=== PATIENT | male | born 1955 | race Caucasian/White ===

== ENCOUNTER 2022-04-02 15:15 | Inpatient (IN) | payer OTHER ==
--- NOTE | 2022-04-02 15:59 | RAD REPORT ---
EXAM DESCRIPTION: CT - CTHCSPWOC - 04/02/2022 3:43 pm CLINICAL HISTORY: syncope COMPARISON: No comparisonsNo comparisons TECHNIQUE: Axial 5 mm thick images of the head were obtained. Axial 2 mm thick images of the cervical spine were obtained with sagittal and coronal reconstruction images generated and reviewed. All CT scans are performed using dose optimization technique as appropriate and may include automated exposure control or mA/KV adjustment according to patient size. FINDINGS: CT HEAD WITHOUT CONTRAST: No acute hemorrhage, hydrocephalus or extra-axial collection is identified.No areas of brain edema or midline shift. The paranasal sinuses and mastoids are clear.The calvarium is intact. CT CERVICAL SPINE WITHOUT CONTRAST: No fracture or subluxation.No prevertebral soft tissues swelling is identified. Multiple indeterminat e pulmonary nodules in lung apices with suspicious morphology. The largest in the right upper lobe me asures 10 millimeters. IMPRESSION: No acute intracranial or cervical spine findings. Pulmonary nodules with suspicious morphologies. Metastastic disease is within the differential. Recom mend dedicated imaging of the chest if this is an unexpected finding. No prior imaging available or r elated history provided.
[2022-04-02 16:12] LABS: Protime INR 1.47
[2022-04-02 16:18] LABS: Absolute Lymphocytes (CBC) 0.5 K/uL (0.7-4.9); Lymphocytes % 5.7 % (15.3-44.8)
[2022-04-02 16:20] LABS: Albumin 2.4 g/dL (3.4-5.0); Magnesium 2.2 mg/dL (1.8-2.4); Potassium 3.8 mmol/L (3.5-5.1)
[2022-04-02 16:24] LABS: MCV 74.7 fL (80-100); MPV 6.5 fL (7.6-11.3); RBC Red Blood Cell Count 2.56 M/uL (4.33-5.43)
[2022-04-02 16:26] LABS: Hematocrit 19.1 % (39.6-49.0)
--- NOTE | 2022-04-02 16:26 | RAD REPORT ---
EXAM DESCRIPTION: RAD - Chest Single View - 04/02/2022 4:21 pm CLINICAL HISTORY: syncope COMPARISON: Head C Spine Mpr Wo Con dated 04/02/2022 FINDINGS: Lines: None. Lungs: No acute process in the lungs. Pulmonary nodules are better demonstrated on CT. Pleural: No significant pleural effusions or pneumothorax. Cardiac: The heart size is within normal limits. Bones: No acute fractures. Other: IMPRESSION: No acute cardiopulmonary disease. Pulmonary nodules better demonstrated on CT.
[2022-04-02 16:40] LABS: Bilirubin Direct 0.2 mg/dL (0-0.2); Bilirubin Total 0.3 mg/dL (0.2-1.0); Protein, Total 7.2 g/dL (6.4-8.2); Troponin High Sensitivity 7.2 pg/mL (<58.9)
[2022-04-02 17:11] LABS: SARS-CoV-2 Antigen Rapid Res Negative (Negative)
--- NOTE | 2022-04-02 17:47 | RAD REPORT ---
EXAM DESCRIPTION: CTChest Abd Pelvis Wo Con - 04/02/2022 5:33 pm CLINICAL HISTORY: Back trauma COMPARISON: No comparisons TECHNIQUE: CT of the chest, abdomen, and pelvis was performed. All CT scans are performed using dose optimization technique as appropriate and may include automated exposure control or mA/KV adjustment according to patient size. FINDINGS: Thorax: Chest Wall: No abnormal mass Lungs: Multiple pulmonary nodules. The largest measures 9 millimeters in the upper lobe on the right side. Pleura: No effusions or pneumothorax. Zaira/Mediastinum: The. For example, there is a paratracheal lymph node measuring 12 millimeters. Aorta/Pulmonary Arteries: Unremarkable Heart: Normal size. Abdomen/Pelvis: Liver: Large complex mass centered in the right hepatic lobe with cystic and solid portions. The lesi on measures at least 19.2 x 17.9 cm. Is incompletely evaluated without contrast. Biliary: No biliary ductal dilatation. Stomach: No significant focal abnormality. Duodenum: No significant focal abnormality. Pancreas: No significant abnormality. Spleen: No significant abnormality. Adrenal: No suspicious lesions. Kidney/ureter: Bilateral hydroureteronephrosis. Left renal calculi noted. Renal cortical thinning is present. Retroperitoneum: No retroperitoneal adenopathy. Vascular: No aneurysm. Bowel: No significant focal abnormality. Peritoneum: No ascites or free air. Bladder: Grossly unremarkable. Reproductive: No adnexal masses. Bones: No acute fracture. Other: n/a IMPRESSION: 1. Severe bilateral hydroureteronephrosis which is likely chronic as there is evidence o f renal cortical thinning. The bladder is also distended. This is likely related to bladder outlet ob struction. Recommend urologic consultation. 2. Large complex cystic and possibly solid mass in the right hepatic lobe which is incompletely macey cterize without contrast. A neoplasm is not excluded. Contrast CT or MRI would be helpful further ass essment. 3. Pulmonary nodules, mediastinal adenopathy, and retroperitoneal lymphadenopathy that is suspicious for metastatic disease, possibly related to the liver mass.
[2022-04-02 18:13] LABS: Urine Blood 1+ (Negative); Urine Glucose Trace (Negative); Urine Protein 1+ (Negative); Urine Specific Gravity <=1.005 (1.005-1.030)
[2022-04-02 18:43] LABS: Urine Bacteria <20 /HPF (<20); Urine RBC <5 /HPF (None Seen)
--- NOTE | 2022-04-02 18:51 | ER ---
Nurse's Notes [facility] Name: Max Sandoval Age: 67 yrs Sex: Male : 1955 Arrival Date: 04/02/2022 Time: 15:22 Bed 23 Private MD: Diagnosis: Unspecified kidney failure;Anemia, unspecified Presentation: 04/02 15:13 Initial Sepsis Screen: Does the patient meet any 2 criteria? HR > 90 bpm. No. Patient's em6 initial sepsis screen is negative. Does the patient have a suspected source of infection? No. Patient's initial sepsis screen is negative. Risk Assessment: Do you want to hurt yourself or someone else? Patient reports no desire to harm self or others. Onset of symptoms was April 02, 2022. 15:13 Acuity: CECILIA 2 em6 15:28 Chief complaint: EMS states: "patient was found in the parking lot of [facility]. em6 bystanders saw him on the floor and called us, but did not see the fall. patient states feeling lightheaded, weak and dizziness when he fell. patient states not losing LOC. patient denies chest pain, headache, SOB, no N/V. patient states right lower abdomen pain. lacerating noted in the back of the head. light bleeding. sinus tachycardia and blood pressure 148/90. inserted 20g on the left AC.". Coronavirus screen: Vaccine status: Patient reports being unvaccinated. Client denies travel out of the [place] in the last 14 days. At this time, the client does not indicate any symptoms associated with coronavirus-19. Ebola Screen: Patient negative for fever greater than or equal to 101.5 degrees Fahrenheit, and additional compatible Ebola Virus Disease symptoms Patient denies exposure to infectious person. No symptoms or risks identified at this time. 15:28 Method Of Arrival: EMS: [facility] em6 Triage Assessment: 15:41 General: Appears in no apparent distress. comfortable, Behavior is calm, cooperative. em6 Pain: Complains of pain in right lower quadrant Pain does not radiate. Pain currently is 3 out of 10 on a pain scale. Quality of pain is described as pressure, Pain began 1 hour ago. Historical: - Allergies: 15:43 No Known Allergies; em6 - Home Meds: 16:23 None [Active]; jd3 - PMHx: 16:23 None; jd3 - PSHx: 16:23 None; jd3 - Immunization history:: Adult Immunizations not immunized, Client reports having NOT received the Covid vaccine. - Social history:: Smoking status: Patient denies any tobacco usage or history of. Screenin:18 Abuse screen: Denies threats or abuse. Nutritional screening: No deficits noted. em6 Tuberculosis screening: No symptoms or risk factors identified. Fall Risk Fall in past 12 months (25 points). No secondary diagnosis (0 pts). IV access (20 points). Ambulatory Aid- None/Bed Rest/Nurse Assist (0 pts). Gait- Normal/Bed Rest/Wheelchair (0 pts) Mental Status- Oriented to own ability (0 pts). Total Dawkins Fall Scale indicates High Risk Score (45 or more points). Fall prevention measures have been instituted. Side Rails Up X 2 Placed Close to Nursing Station Frequent Obs/Assessments Occuring. Assessment: 15:18 General: Appears in no apparent distress. comfortable, Behavior is calm, cooperative. em6 Pain: Complains of pain in right lower quadrant Pain does not radiate. Pain currently is 3 out of 10 on a pain scale. Quality of pain is described as pressure, Pain began 1 hour ago. Neuro: [place]don Agitation-Sedation Scale (RASS): 0 - Alert and Calm Level of Consciousness is awake, alert, obeys commands, Oriented to person, place, time, situation, Assistant Professor Of Biology are equal bilaterally Moves all extremities. Pupils are PERRLA, Reports blurred vision since 04/02/2022 \\T\\ [id number]. 15:18 Cardiovascular: Reports lightheadedness, Heart tones present Capillary refill < 3 em6 seconds Patient's skin is warm and dry. Pulses are all present. Rhythm is sinus rhythm Chest pain is denied. Respiratory: Airway is patent Respiratory effort is even, unlabored, Respiratory pattern is regular, symmetrical, Breath sounds are clear. GI: Abdomen is non-distended, Bowel sounds present X 4 quads. Abd is soft and non tender X 4 quads. : No signs and/or symptoms were reported regarding the genitourinary system. EENT: No signs and/or symptoms were reported regarding the EENT system. Derm: laceration reported to the back of head. bandage in place at this time. Musculoskeletal: No signs and/or symptoms reported regarding the musculoskeletal system. Circulation, motion, and sensation intact. Range of motion: intact in all extremities. 15:18 Injury Description: Laceration sustained to scalp is bandage in place around head. em6 small amount of blood noted on the bandage. 16:41 Reassessment: Patient appears in no apparent distress at this time. Patient and/or em6 family updated on plan of care and expected duration. Pain level reassessed. Patient denies pain at this time. Patient states feeling better. 17:46 Reassessment: Patient appears in no apparent distress at this time. No changes from em6 previously documented assessment. Patient and/or family updated on plan of care and expected duration. Pain level reassessed. 18:46 Reassessment: Patient appears in no apparent distress at this time. No changes from em6 previously documented assessment. Patient and/or family updated on plan of care and expected duration. Pain level reassessed. 19:39 Reassessment: Patient appears in no apparent distress at this time. Patient is alert, as6 oriented x 3, equal unlabored respirations, skin warm/dry/pink. Vital Signs: 15:13 BP 149 / 99; Pulse 107; Resp 18; Temp 97.6; Pulse Ox 97% on R/A; Pain 3/10; em6 15:44 BP 149 / 99; Pulse 107; Resp 18; Temp 97.6; Pulse Ox 97% on R/A; Height 5 ft. 10 in. em6 (177.80 cm); Pain 3/10; 16:30 BP 175 / 104; Pulse 91; Resp 18; Pulse Ox 100% on R/A; Pain 0/10; em6 17:30 BP 184 / 102; Pulse 89; Resp 18; Temp 97.5(TE); Pulse Ox 100% on R/A; Pain 0/10; em6 18:30 BP 181 / 107; Pulse 94; Resp 19; Pulse Ox 100% on R/A; em6 19:39 BP 176 / 103; Pulse 97; Resp 24 S; Pulse Ox 100% on R/A; as6 ED Course: 15:18 Arm band placed on left wrist. Patient placed on marble polisher hand, on pulse oximetry. em6 15:18 Patient has correct armband on for positive identification. Bed in low position. Call em6 light in reach. Side rails up X2. Warm blanket given. 15:18 Client placed on continuous cardiac and pulse oximetry monitoring. NIBP monitoring em6 applied. ancillary services manager on. Pulse ox on. NIBP on. 15:18 Maintain EMS IV. IV is patent, is intact, with fluids infusing freely, with good blood em6 return, Flushed left antecubital. 15:22 Patient arrived in ED. jd3 15:22 Elie Longo PA is PHCP. cp 15:22 Yamile Main is Attending Physician. cp 15:24 Judah Owen, RN is Primary Nurse. jd3 15:41 Triage completed. em6 15:45 CT Head C Spine In Process Unspecified. EDMS 16:23 XRAY Chest (1 view) In Process Unspecified. EDMS 17:05 SARS RAPID Sent. em6 17:35 Chest Abd Pelvis Wo Con In Process Unspecified. EDMS 18:25 Bladder scan completed. 831 ml noted post void. provider notified. jd3 18:50 Jose Antonio Zheng MD is Hospitalizing Provider. cp 18:53 Ordaz cath inserted, using sterile technique, 18 Fr., by va, balloon inflated, to jd3 gravity drainage. 19:40 Inserted saline lock: 20 gauge in right antecubital area, using aseptic technique. as6 Blood collected. Administered Medications: 18:51 CANCELLED (Physician Discretion): NS 0.9% 500 ml IV at bolus once cp 18:51 CANCELLED (Physician Discretion): NS 0.9% 500 ml IV at 125 ml/hr continuous cp 19:39 Drug: NS 0.9% 1000 ml Route: IV; Rate: 1000 ml/hr; Site: left antecubital; as6 19:39 Drug: NS 0.9% 1000 ml Route: IV; Rate: 75 ml/hr; Site: left antecubital; as6 Medication: 16:38 VIS not applicable for this client. em6 Outcome: 18:50 Decision to Hospitalize by Provider. cp 04/03 10:08 Patient left the ED. em1 Signatures: Dispatcher [employer] EDMS Alejandro Garcia em1 Elie Longo PA PA cp Davies, Jonathon, RN RN jd3 Slawson, Ashby, RN RN as6 Jose, Lisa, RN RN em6 Corrections: (The following items were deleted from the chart) 04/02 16:22 15:18 Derm: No signs and/or symptoms reported regarding the dermatologic system. em6 em6 16:22 15:18 Injury Description: Head injury patient states not losing conscious. em6 em6 16:33 15:18 Arm band placed on em6 em6 16:36 16:34 Abuse screen: Denies threats or abuse. em6 em6 16:36 16:34 Nutritional screening: No deficits noted. em6 em6 16:36 16:34 Tuberculosis screening: No symptoms or risk factors identified. em6 em6 16:36 16:34 Fall Risk Fall in past 12 months (25 points). No secondary diagnosis (0 pts). IV em6 access (20 points). Ambulatory Aid- None/Bed Rest/Nurse Assist (0 pts). Gait- Normal/Bed Rest/Wheelchair (0 pts) Mental Status- Oriented to own ability (0 pts). Total Dawkins Fall Scale indicates High Risk Score (45 or more points). Fall prevention measures have been instituted. Side Rails Up X 2 Placed Close to Nursing Station Frequent Obs/Assessments Occuring em6
--- NOTE | 2022-04-02 18:51 | EDPHYS ---
Physician Documentation [facility] Name: Max Sandoval Age: 67 yrs Sex: Male : 1955 Arrival Date: 04/02/2022 Time: 15:22 Bed 23 Private MD: ED Physician Yamile Main HPI: 04/02 15:30 This 67 yrs old Male presents to ER via EMS with complaints of Fall Injury. cp 15:30 The patient has experienced syncope, lost consciousness. cp 15:30 Onset: The symptoms/episode began/occurred just prior to arrival. Duration: This was a cp single episode, that lasted an unknown period of time. Context: occurred outdoors, while getting into car. Associated injury: Head/face: scalp, laceration. Associated signs and symptoms: Pertinent positives: weakness, Pertinent negatives: abdominal pain, chest pain, seizure, vomiting. Current symptoms: general weakness. Historical: - Allergies: 15:43 No Known Allergies; em6 - Home Meds: 16:23 None [Active]; jd3 - PMHx: 16:23 None; jd3 - PSHx: 16:23 None; jd3 - Immunization history:: Adult Immunizations not immunized, Client reports having NOT received the Covid vaccine. - Social history:: Smoking status: Patient denies any tobacco usage or history of. ROS: 15:35 Constitutional: Negative for body aches, chills, fever, poor PO intake. cp 15:35 Eyes: Negative for injury, pain, redness, and discharge. cp 15:35 ENT: Negative for drainage from ear(s), ear pain, sore throat, difficulty swallowing, difficulty handling secretions. 15:35 Cardiovascular: Negative for chest pain, edema, palpitations. 15:35 Respiratory: Negative for cough, shortness of breath, wheezing. 15:35 Abdomen/GI: Positive for abdominal pain, Negative for vomiting, diarrhea, constipation, black/tarry stool, rectal bleeding. 15:35 Back: Negative for pain at rest, pain with movement. 15:35 : Negative for urinary symptoms. 15:35 Neuro: Positive for syncope, weakness, Negative for altered mental status, headache. 15:35 All other systems are negative. Exam: 15:45 Constitutional: The patient appears in no acute distress, alert, awake, cp non-diaphoretic, non-toxic, well developed, well nourished. 15:45 Head/face: Noted is a laceration(s), that is linear, of the scalp. cp 15:45 Eyes: Periorbital structures: appear normal, Pupils: equal, round, and reactive to light and accomodation, Extraocular movements: intact throughout, Conjunctiva: normal, no exudate, no injection, Sclera: no appreciated abnormality, Lids and lashes: appear normal, bilaterally. 15:45 ENT: External ear(s): are unremarkable, Ear canal(s): are normal, clear, TM's: dullness, bilaterally, Nose: is normal, Mouth: Lips: moist, Oral mucosa: pink and intact, moist, Posterior pharynx: Airway: no evidence of obstruction, patent. 15:45 Neck: C-spine: vertebral tenderness, is not appreciated, crepitus, is not appreciated, ROM/movement: is normal, is supple, without pain, no range of motions limitations. 15:45 Chest/axilla: Inspection: normal, Palpation: is normal, no crepitus, no tenderness. 15:45 Cardiovascular: Rate: tachycardic, Rhythm: regular, Edema: is not appreciated, JVD: is not appreciated. 15:45 Respiratory: the patient does not display signs of respiratory distress, Respirations: normal, no use of accessory muscles, no retractions, labored breathing, is not present, Breath sounds: are clear throughout, no decreased breath sounds, no stridor, no wheezing. 15:45 Abdomen/GI: Inspection: distension, that is mild, in the right upper quadrant, Bowel sounds: active, all quadrants, Palpation: soft, in all quadrants, mild abdominal tenderness, in the abdomen diffusely, rebound tenderness, is not appreciated, involuntary guarding, is not appreciated, Rectal exam: Stool: brown, guaiac negative. 15:45 Back: vertebral tenderness, is not appreciated. 15:45 Neuro: Orientation: to person, place \T\ time. Mentation: able to follow commands, slow cp to respond, Cerebellar function: is grossly normal, Motor: moves all fours, strength is normal, Sensation: is normal. 16:00 ECG was reviewed by the Attending Physician. cp 18:15 : Rectal exam: Stool: brown, Guaiac testing: results were negative for occult blood. cp Vital Signs: 15:13 BP 149 / 99; Pulse 107; Resp 18; Temp 97.6; Pulse Ox 97% on R/A; Pain 3/10; em6 15:44 BP 149 / 99; Pulse 107; Resp 18; Temp 97.6; Pulse Ox 97% on R/A; Height 5 ft. 10 in. em6 (177.80 cm); Pain 3/10; 16:30 BP 175 / 104; Pulse 91; Resp 18; Pulse Ox 100% on R/A; Pain 0/10; em6 17:30 BP 184 / 102; Pulse 89; Resp 18; Temp 97.5(TE); Pulse Ox 100% on R/A; Pain 0/10; em6 18:30 BP 181 / 107; Pulse 94; Resp 19; Pulse Ox 100% on R/A; em6 19:39 BP 176 / 103; Pulse 97; Resp 24 S; Pulse Ox 100% on R/A; as6 Laceration: 20:00 Wound Repair of 2.5cm ( 1.0in ) subcutaneous laceration to scalp. Linear shaped.. cp Distal neuro/vascular/tendon intact. Wound prep: Simple cleansing by me. Skin closed with 3 1-0 Mahesh using staple gun. Dressed with 4x4's, Kerlix. Patient tolerated well. MDM: 15:24 Patient medically screened. cp 18:15 Data reviewed: vital signs, nurses notes, lab test result(s), EKG, radiologic studies, cp CT scan, plain films. 18:15 Test interpretation: by ED physician or midlevel provider: ECG, plain radiologic cp studies. Counseling: I had a detailed discussion with the patient and/or guardian regarding: the historical points, exam findings, and any diagnostic results supporting the discharge/admit diagnosis, lab results, radiology results, the need for further work-up and treatment in the hospital. 18:45 Physician consultation: Jose Antonio Zheng MD was contacted at 18:45, regarding admission, cp to the telemetry unit. patient's condition. 04/02 15:23 Order name: Basic Metabolic Panel; Complete Time: 16:55 cp 04/02 16:55 Interpretation: Normal except: NA 127; CL 97; CO2 16; ANION GAP 17.8; GLUC 120; BUN 61; cp CRE 5.30; GFR 11. 04/02 15:23 Order name: CBC with Diff; Complete Time: 16:29 04/02 16:30 Interpretation: Normal except: RBC 2.56; HGB 6.4; HCT 19.1; MCV 74.7; MCH 25.0; PLT cp 556; MPV 6.5; DAVID% 83.7; LYM% 5.7; LYMA 0.5. 04/02 15:23 Order name: LFT's; Complete Time: 16:55 04/02 15:23 Order name: Magnesium; Complete Time: 16:55 04/02 15:23 Order name: NT PRO-BNP; Complete Time: 16:55 04/02 17:57 Interpretation: Abnormal: NT PRO-BNP 1639. 04/02 15:23 Order name: PT-INR; Complete Time: 16:29 04/02 15:23 Order name: Troponin HS; Complete Time: 16:55 04/02 16:45 Order name: SARS RAPID; Complete Time: 17:50 04/02 17:52 Order name: Lactate; Complete Time: 00:08 04/02 17:52 Order name: Procalcitonin; Complete Time: 00:08 04/02 17:52 Order name: Blood Culture Adult (2) 04/02 17:52 Order name: Urine Microscopic Only; Complete Time: 18:45 04/02 18:02 Order name: T\T\S 04/02 18:02 Order name: Bb Add On 04/02 15:23 Order name: XRAY Chest (1 view); Complete Time: 16:29 04/02 15:23 Order name: CT Head C Spine; Complete Time: 16:29 04/02 17:08 Order name: Chest Abd Pelvis Wo Con; Complete Time: 17:50 [facility] 04/02 18:13 Order name: Urine Dipstick-Ancillary; Complete Time: 18:18 [facility] 04/02 20:27 Order name: ABO/RH no charge; Complete Time: 00:08 EDNE 04/03 03:18 Order name: CBC with Automated Diff; Complete Time: 07:10 EDNE 04/03 03:47 Order name: Comprehensive Metabolic Panel; Complete Time: 07:10 EDNE 04/03 03:47 Order name: T4 Free; Complete Time: 07:10 EDMS 04/03 03:47 Order name: Carcinoembryonic Antigen; Complete Time: 07:10 EDMS 04/03 03:47 Order name: Thyroid Stimulating Hormone; Complete Time: 07:10 EDMS 04/03 03:47 Order name: Transferrin Sat/Iron Binding; Complete Time: 07:10 EDMS 04/03 03:47 Order name: Ferritin; Complete Time: 07:10 EDMS 04/03 06:59 Order name: Hematocrit; Complete Time: 07:10 EDMS 04/02 15:23 Order name: EKG; Complete Time: 15:24 cp 04/02 15:23 Order name: Cardiac monitoring; Complete Time: 15:24 cp 04/02 15:23 Order name: EKG - Nurse/Tech; Complete Time: 15:56 cp 04/02 15:23 Order name: IV Saline Lock; Complete Time: 15:28 cp 04/02 15:23 Order name: Labs collected and sent; Complete Time: 15:56 cp 04/02 15:23 Order name: O2 Per Protocol; Complete Time: 15:24 cp 04/02 15:23 Order name: O2 Sat Monitoring; Complete Time: 15:24 cp 04/02 17:52 Order name: Bladder Scanner; Complete Time: 18:25 cp 04/02 17:52 Order name: Urine Dipstick-Ancillary (obtain specimen); Complete Time: 18:12 cp 04/02 18:03 Order name: Ordaz; Complete Time: 19:09 cp EC:00 Rate is 96 beats/min. Rhythm is regular. VA interval is normal. QRS interval is normal. cp QT interval is normal. T waves are Inverted in leads I, aVL. Interpreted by me. Reviewed by me. Administered Medications: 18:51 CANCELLED (Physician Discretion): NS 0.9% 500 ml IV at bolus once cp 18:51 CANCELLED (Physician Discretion): NS 0.9% 500 ml IV at 125 ml/hr continuous cp 19:39 Drug: NS 0.9% 1000 ml Route: IV; Rate: 1000 ml/hr; Site: left antecubital; as6 19:39 Drug: NS 0.9% 1000 ml Route: IV; Rate: 75 ml/hr; Site: left antecubital; as6 Disposition: 04/03 07:38 STAFF ATTESTATION The patient's history, exam findings, diagnostics, and a summary of sd2 any interventions or procedures was reviewed in detail with the ED midlevel provider. I confirm the diagnosis as documented by the midlevel provider and I agree with the care plan articulated in the disposition section with regards to our discussion of the patient's case. Yamile Main MD. Disposition Summary: 04/02/22 18:50 Hospitalization Ordered Hospitalization Status: Inpatient Admission cp Provider: Jose Antonio Zheng cp Condition: Stable cp Problem: new cp Symptoms: have improved cp Bed/Room Type: Standard cp Location: Telemetry/MedSurg (Inpatient)(04/03/22 09:15) dw Room Assignment: 228(04/03/22 09:15) dw Diagnosis - Unspecified kidney failure cp - Anemia, unspecified cp Forms: - Medication Reconciliation Form cp - SBAR form cp Signatures: Dispatcher [employer] EDMS Maria Luz Potter RN RN dw Attema, Lee, ELECTRONIC MASKING SYSTEM OPERATOR-C ELECTRONIC MASKING SYSTEM OPERATOR-Cla1 Elie Longo PA PA cp Cheryl Juarez, RN Judah Romero RN RN jd3 Fish Fierro DO DO ms3 Eugene Lr RN RN as6 Yamile Main MD MD sd2 Lisa Garcia RN RN em6 Corrections: (The following items were deleted from the chart) 04/02 16:55 16:30 Normal except: NA 127; CL 97; CO2 16; ANION GAP 17.8; GLUC 120; BUN 61. cp cp 16:55 16:55 Normal except: NA 127; CL 97; CO2 16; ANION GAP 17.8; GLUC 120; BUN 61; CRE 5.30. cp cp 17:07 16:55 Abdomen Pelvis Wo Con+CT.RAD.BRZ ordered. EDMS EDMS 17:08 16:55 Thorax Wo Con+CT.RAD.BRZ ordered. EDMS EDMS 18:51 18:27 NS 0.9% 500 ml IV at bolus once ordered. cp cp 18:51 18:27 NS 0.9% 500 ml IV at 125 ml/hr continuous ordered. cp cp 19:35 18:50 Telemetry/MedSurg (Inpatient) cp cg 19:35 18:50 cp cg 04/03 09:15 04/02 19:35 BR ER HOLD cg 04/03 09:15 04/02 19:35 ERHOLD- cg 04/04 09:16 04/02 21:00 Wound Repair of 2.5cm ( 1.0in ) subcutaneous laceration to scalp. Linear cp shaped.. Distal neuro/vascular/tendon intact. Wound prep: Simple cleansing by me. Skin closed with 3 1-0 Mahesh using staple gun. Dressed with 4x4's, Kerlix. Patient tolerated well. cp
[2022-04-02] MEDS ORDERED: NA CHLORIDE 0.9% 2,000 ML ONE (19:27)
--- NOTE | 2022-04-02 19:52 | P.HP ---
Certification for Inpatient Patient admitted to: Inpatient With expected LOS: >2 Midnights Patient will require the following post-hospital care: None Practitioner: I am a practitioner with admitting privileges, knowledge of patient current condition, hospital course, and medical plan of care. Services: Services provided to patient in accordance with Admission requirements found in Title 42 Section 412.3 of the Code of Federal Regulations Patient History Date of Service: 04/02/22 Reason for admission: Acute renal failure, anemia History of Present Illness: 67-year-old male with no known past medical history presented to the emergency department with fall/near syncope. He reports he was at [employer] getting some food when he got out of his car and put the food away he began to feel very lightheaded and fell hitting the back of his head on the ground, he denies loss of consciousness but reports feeling very weak and lightheaded. He reports he has been feeling weak, short of breath on exertion worsening since July, also reports he has been losing weight since July. He was evaluated in the emergency department his labs were significant for microcytic anemia, elevated platelets, mild hyponatremia, acute renal failure. He had a CT scan of his head neck which was negative for acute injuries chest x-ray was unremarkable CT chest abdomen pelvis without contrast was significant for severe bilateral hydroureteronephrosis which is likely chronic and there is evidence of renal cortical thinning, bladder distention likely related to bladder outlet obstruction. Large complex cystic and possibly solid mass in the right hepatic lobe which is incompletely characterized without contrast neoplasm not excluded contrast CT or MRI would be more helpful, pulmonary nodules mediastinal adenopathy and retrofitted peritoneal lymphadenopathy there is suspicious for metastatic disease part related to the liver mass. A Ordaz catheter was inserted in the emergency department which returned approximately 1300 cc of yellow urine without gross hematuria. Patient denies any melena, hematochezia or hematemesis FOBT negative in the emergency department. ED prior wishes to admit for further evaluation and management of acute renal failure, obstructive uropathy, anemia. - Past Medical/Surgical History -: None -: None Psychosocial/ Personal History: Patient is retired, lives at home alone. - Family History Family History: Reviewed- Non-Contributory - Social History Smoking Status: Never smoker Alcohol use: No CD- Drugs: No Caffeine use: Yes Place of Residence: Home Review of Systems 10-point ROS is otherwise unremarkable General: Other (weight loss) Respiratory: SOB with Excertion Cardiovascular: Light Headedness Genitourinary: Frequency, Other (small amounts) Physical Examination - Physical Exam General: Alert, In no apparent distress, Oriented x3 HEENT: Atraumatic, PERRLA, Other (MM pale, dry), EOMI, Sclerae nonicteric Neck: Supple, 2+ carotid pulse no bruit, No LAD, Without JVD or thyroid abnormality Respiratory: Clear to auscultation bilaterally, Normal air movement Cardiovascular: Regular rate/rhythm, Normal S1 S2 Capillary refill: <2 Seconds Gastrointestinal: Normal bowel sounds, No tenderness Musculoskeletal: No tenderness Integumentary: No rashes Neurological: Normal speech, Normal strength at 5/5 x4 extr, Normal tone, Normal affect - Studies Laboratory Data (last 24 hrs) 04/02/22 15:55: PT 16.3 H, INR 1.47 04/02/22 15:55: WBC 8.2, Hgb 6.4 L*, Hct 19.1 L*, Plt Count 556 H 04/02/22 15:55: Sodium 127 L, Potassium 3.8, BUN 61 H, Creatinine 5.30 H*, Glucose 120 H, Magnesium 2.2, Total Bilirubin 0.3, AST 26, ALT 20, Alkaline Phosphatase 206 H Assessment and Plan - Plan Assessment: Acute renal failure Bladder outlet obstruction Microcytic anemia Hypertension Liver mass/pulmonary nodules/weight loss/lymphadenopathy suspected metastatic cancer Plan: Acute renal failure: Likely related to chronic bladder outlet obstruction, PVR 800 per bladder scan Ordaz catheter was inserted which returned 1300 cc of yellow/clear urine without gross hematuria. Anticipate improvement in renal function, will provide with gentle hydration overnight as well. Nephrology consult in place. Bladder outlet obstruction: Ordaz catheter inserted and now draining clear yellow urine Microcytic anemia: Likely related to metastatic cancer, FOBT negative, denies any melena, hematochezia, hematemesis. Being transfused 2 units. See now will obtain 2-hour posttransfusion H&H. Hypertension: Not on any medications at home blood pressure elevated in the emergency department, will continue to monitor closely will likely require initiation of antihypertensive agents. Will avoid RENÉE/ARB in the setting of acute renal failure. Liver mass/pulmonary nodules/weight loss/lymphadenopathy suspected metastatic cancer: Discussed with patient at length regarding suspected metastatic cancer, he does wish to pursue treatment options. Additional labs ordered to further assess at discharge patient will need close follow-up with oncology. Unclear primary cancer, possibly colon. He has never had a colonoscopy. DVT PPX: SCD for now, likely heparin if anemia responds to tranfusion and no bleeding. Code status:Full code Discharge Plan: Home Plan to discharge in: Greater than 2 days - Advance Directives Does patient have a Living Will: No Does patient have a Durable POA for Healthcare: No - Code Status/Comfort Care Code Status Assessed: Yes (Full code) Critical Care: No Time Spent Managing Pts Care (In Minutes): 70
[2022-04-02 20:58] VITALS: BMI 19.2
[2022-04-02] MEDS ORDERED: ONDANSETRON 4 MG/2 ML VIAL IV PRN (21:00)
[2022-04-02] MEDS ORDERED: HYDRALAZINE HCL 20 MG/ML VIAL IV PRN (21:08)
[2022-04-02] MEDS: NA CHLORIDE 0.9% 1,000 ML IV SCH (21:40)
[2022-04-02] MEDS ORDERED: NA CHLORIDE 0.9% 250 ML ONE ×2 (21:59→23:46)
[2022-04-02] MEDS ORDERED: HYDRALAZINE HCL 25 MG TABLET PO SCH (22:00)
[2022-04-02] MEDS ORDERED: HYDRALAZINE HCL 20 MG/ML VIAL ONE (22:38)
[2022-04-02] MEDS ORDERED: LABETALOL 20 MG/4ML SYRINGE IV PRN (23:38)
[2022-04-03] MEDS ORDERED: LIDOCAINE JELLY 2%- 5 ML TUBE TOP ONE (00:10)
[2022-04-03] MEDS: HYDROCODONE/APAP 7.5/325 MG TAB PO PRN ×2 (00:12→08:18)
[2022-04-03] MEDS: HYDRALAZINE HCL 25 MG TABLET PO SCH ×3 (00:15→21:04)
[2022-04-03] MEDS ORDERED: HYDRALAZINE HCL 25 MG TABLET ONE ×2 (00:19→09:04)
[2022-04-03] MEDS ORDERED: HYDROCODONE/APAP 7.5/325 MG TAB ONE ×2 (00:19→08:09)
[2022-04-03] MEDS ORDERED: LIDOCAINE JELLY 2%- 5 ML TUBE ONE (00:31)
[2022-04-03 03:09] LABS: Absolute Lymphocytes (CBC) 0.4 K/uL (0.7-4.9); Lymphocytes % 4.8 % (15.3-44.8); MCV 79.2 fL (80-100); MPV 6.4 fL (7.6-11.3); RBC Red Blood Cell Count 3.29 M/uL (4.33-5.43)
[2022-04-03 03:46] LABS: Albumin 2.3 g/dL (3.4-5.0); Bilirubin Total 0.9 mg/dL (0.2-1.0); Carcinoembryonic Antigen 1.4 ng/mL (0-5.0); Ferritin 925.2 ng/mL (26-388); Protein, Total 6.9 g/dL (6.4-8.2); Thyroid Stimulating Hormone 2.36 uIU/mL (0.360-3.740)
[2022-04-03] MEDS ORDERED: ONDANSETRON 4 MG/2 ML VIAL ONE (08:09)
[2022-04-03] MEDS ORDERED: PNEUMOCOCCAL VACCINE 0.5 ML IMVAC ONE (09:00)
[2022-04-03] MEDS ORDERED: LABETALOL 20 MG/4ML SYRINGE IV ONE (09:04)
[2022-04-03] MEDS: NA CHLORIDE 0.9% 1,000 ML IV SCH ×2 (18:40→23:40)
[2022-04-03 19:02] LABS: Hematocrit 33.4 % (39.6-49.0); MCV 79.5 fL (80-100); MPV 6.6 fL (7.6-11.3)
[2022-04-03 19:17] LABS: Albumin 2.6 g/dL (3.4-5.0); Bilirubin Total 0.8 mg/dL (0.2-1.0); Potassium 4.2 mmol/L (3.5-5.1)
--- NOTE | 2022-04-03 22:27 | P.PN ---
Date of Service: 04/03/22 Subjective: feels about the same no acute events overnight ROS: 10 point ROS as noted above, otherwise negative Physical Exam: Gen: fatigued appearing, NAD HEENT: normal conjunctiva, sclera anicteric CV: regular rate/rhythm, no edema Pulm: nonlabored on room air Abd: soft, NTND, hepatomegaly with tenderness Integumentary: no rash Neuro: normal speech, moves all extremities 5/5 str Problem List: Acute renal failure Bladder outlet obstruction, bilateral hydronephrosis Microcytic anemia Hypertension Liver mass/pulmonary nodules/weight loss/lymphadenopathy suspected metastatic cancer Acute vs chronic renal failure, unsure of how long this has been ongoing patient reports constipation since last fall, has been taking a medication that works as a laxative within the same timeline as constipation - began to have more nocturia - now ~3 times a night Ordaz placed and 1300cc yellow/clear urine was obtained in ED now urine is blood tinged No significant improvement but patient is making plenty of urine anemia - likely secondary to metastatic cancer; possibly bled in complex liver cyst s/p 2u PRBC with good improvement Liver mass - suspect cancer, possible cystadenocarcinoma, ?prostate cancer, ?rectal discussed with radiologist prior to admission - did not feel this cyst was full of blood possible hemorhagic hepatic cyst he has never had a colonoscopy deconditioned; difficulty walking now due to debility. PT consult DVT: SCDs for now, r/o bleed Code: full Dispo: home, ~3-4 days patient did not bring his cell phone and does not recall family members numbers states he has a sister in [place] he hasn't spoken to in ~3 months, didn't want to bother her Time Spent Managing Pts Care (In Minutes): 35
[2022-04-04 04:30] LABS: Absolute Lymphocytes (CBC) 0.4 K/uL (0.7-4.9); Lymphocytes % 4.2 % (15.3-44.8); MCV 79.8 fL (80-100); MPV 6.5 fL (7.6-11.3); RBC Red Blood Cell Count 3.89 M/uL (4.33-5.43)
[2022-04-04] MEDS: NA CHLORIDE 0.9% 1,000 ML IV SCH ×2 (05:36→13:00)
--- NOTE | 2022-04-04 06:36 | P.PN ---
Date of Service: 04/04/22 Subjective: no acute events, feels ~same low appetite, fatigued ROS: 10 point ROS as noted above, otherwise negative Physical Exam: Gen: fatigued appearing, NAD HEENT: normal conjunctiva, sclera anicteric CV: regular rate/rhythm, no edema Pulm: nonlabored on room air Abd: soft, NTND, hepatomegaly with mild tenderness/discomfort Integumentary: no rash Neuro: normal speech, moves all extremities 5/5 str Problem List: Abdominal mass / ?liver mass ; suspected metastatic cancer pulmonary nodules mediastinal lymphadenopathy Acute renal failure Bladder outlet obstruction, bilateral hydronephrosis, unknown etiology Microcytic anemia Hypertension Acute vs chronic renal failure, unsure of how long this has been ongoing patient reports constipation since last fall, has been taking a medication that works as a laxative within the same timeline as constipation - began to have more nocturia - now ~3 times a night Zapata placed and 1300cc yellow/clear urine was obtained in ED now urine is blood tinged No significant improvement but patient is making plenty of urine anemia - likely secondary to metastatic cancer; possibly bled in complex liver cyst s/p 2u PRBC with good improvement Liver mass - suspect cancer, possible cystadenocarcinoma, ?prostate cancer, ?rectal - tumor markers sent discussed with radiologist prior to admission - did not feel this cyst was full of blood possible hemorhagic hepatic cyst he has never had a colonoscopy deconditioned; difficulty walking now due to debility. PT consult Abdominal MRI ordered, unable to get without contrast due to renal failure; discussed with radiologist depending on MRI results, to discuss again with radiology and plan out biopsy will need urology eval as outpatient, continue zapata DVT: SCDs for now, r/o bleed Code: full Dispo: home, ~3-4 days patient did not bring his cell phone and does not recall family members numbers states he has a sister in [place] he hasn't spoken to in ~3 months, didn't want to bother her Time Spent Managing Pts Care (In Minutes): 35
[2022-04-04 07:37] LABS: Albumin 2.4 g/dL (3.4-5.0); Bilirubin Total 0.6 mg/dL (0.2-1.0); Potassium 4.2 mmol/L (3.5-5.1); Protein, Total 7.2 g/dL (6.4-8.2)
[2022-04-04] MEDS: HYDRALAZINE HCL 25 MG TABLET PO SCH ×2 (09:11→22:31)
--- NOTE | 2022-04-04 09:30 | EKG ---
Test Date: 2022-04-02 Test Time: 15:54:34 Coordinator [employer]: BP MEASUREMENT RESULTS: Intervals: Rate: 96 MS: 172 QRSD: 96 QT: 344 QTc: 434 Warriors Mark: P: 90 MS: 172 QRS: -63 T: 96 INTERPRETIVE STATEMENTS: Normal sinus rhythm Pulmonary disease pattern Left anterior fascicular block Septal infarct, age undetermined Abnormal ECG No previous ECG available for comparison Electronically Signed On 04-04-22 09:25:07 CDT by Luke Irving
--- NOTE | 2022-04-04 13:20 | RAD REPORT ---
EXAM DESCRIPTION: MRI - Abdomen Wo Cont - 04/04/2022 11:18 am CLINICAL HISTORY: eval liver mass, gross hematuria, bilateral hydronephrosis COMPARISON: No comparisons TECHNIQUE: Axial and coronal imaging of the abdomen performed using T1 weighted, T2 weighted, T2 has te fat sat imaging, T1 inphase/ opposed phase imaging. Contrast could not be administered due to poor renal function. FINDINGS: Filling the right abdomen is a 21 cm CC x 18 cm AP x 17 cm TR circumscribed heterogeneous signal intensity mass. On T1 weighted imaging the mass is predominantly hyperintense. There is a 15 x 9 cm area in the posteromedial aspect of the mass complex that is more hypointense. No significant c hange in signal pattern on opposed phase imaging. On T1 fat suppressed sequencing the signal pattern is not substantially different. On heavily T2 weighted sequencing multiple hyperintense probably cystic components are seen. There ar e numerous septations present. The posteromedial component is mostly hyperintense on T2 imaging. Ther e are numerous T2 hypointense strands within the medial mass complex at along the periphery of the po steromedial component. On T2 and T2 haste sequencing there are areas of layering fluid fluid componen ts. Along the medial margin of the mass there is a neck or stalk that extends inferiorly into the central abdomen. Point of origin is not clearly defined on this examination. It is probably but not definiti vely to low for biliary origin. The mass appears to displace rather than arise from the liver or righ t kidney. Pancreas is displaced to the left of midline. Separate normal sized gallbladder is seen. Le wallace within the hepatic parenchyma is not confirmed. Communication to the biliary tree is not seen. Patient does have pronounced bilateral hydronephrosis. Ureters are not fully imaged on this study. A discrete solid mass is not seen. Left-sided renal cysts are present. The mass is predominantly cystic but this is not a simple cyst fluid. High protein content or hemorrh agic material is likely present. No significant fat component is confirmed. Fibrotic septations are s een. This very large right-sided abdominal mass does not appear to be from in origin of the solid abdomina l visceral. The bilateral hydronephrosis and hematuria are likely unrelated to this process. A mucino us cystic neoplasm (MCN) would be a primary consideration. This is likely from mesenteric origin. Jaiden iary mucinous cystadenoma as a variety of MCN would be a consideration. Mesenteric teratoma would be a possibility. IMPRESSION: Large 21 centimeter mass in the abdomen is present. As detailed, this appears to displac e the liver, kidney and pancreas. Gallbladder is also displaced. Mass of the solid abdominal viscera not suspected. Mucinous cystic neoplasm possibly from mesenteric or biliary origin would be possible. Teratoma is al so a consideration. Patient has significant bilateral hydronephrosis not fully evaluated on this MRI abdomen only examina tion.
[2022-04-05] MEDS: NA CHLORIDE 0.9% 1,000 ML IV SCH ×2 (02:29→18:54)
--- NOTE | 2022-04-05 02:47 | PN ---
Date of Progress Note: 04/04/2022 Chief Complaint: Acute kidney injury, nonoliguric. Subjective: The patient presented to the hospital because of status post fall. The patient was found to have liver mass and is undergoing workup. MRI without contrast was ordered. The patient has severe hyperazotemia. Electrolytes are stabilizing. On admission, the patient was found to have hyponatremia and sodium level has improved. The patient is on normal saline for hydration. Review of Systems: Denies fever or chills. Objective: Lungs: Clear to auscultation bilateral. Heart: S1 and S2. Abdomen: Soft. Extremities: No edema. Impression And Plan: 1. Acute kidney injury on advanced chronic kidney disease. The patient had a CT scan done without contrast, which showed thinning of the cortical area in both kidneys, which corresponds with advanced chronic kidney disease secondary to obstructive uropathy with hydronephrosis present bilaterally. The patient had a Ordaz catheter placed and he remains nonoliguric. The patient needs further workup with Urology and workup for malignancy as he was found to have liver mass, which may indicate possibility of cystadenocarcinoma. The patient needs workup with Urology to rule out prostate cancer and GI to rule out colon cancer as well. 2. Hydronephrosis. Plan is to re-evaluate renal ultrasound and the patient may need a nuclear medicine scan for hydronephrosis. CAMILLE/KATI Voice ID: [id number] Report ID: [id number] MTDD
--- NOTE | 2022-04-05 03:22 | CON ---
Date of Consultation: 04/03/2022 Chief Complaint: Acute kidney injury. duplicate EB/MODL Voice ID: [id number] Report ID: [id number] MTDD
[2022-04-05 06:04] LABS: Absolute Lymphocytes (CBC) 0.6 K/uL (0.7-4.9); Hematocrit 27.6 % (39.6-49.0); Lymphocytes % 7.3 % (15.3-44.8); MCV 79.6 fL (80-100); MPV 6.4 fL (7.6-11.3); RBC Red Blood Cell Count 3.47 M/uL (4.33-5.43)
[2022-04-05 06:18] LABS: Albumin 2.1 g/dL (3.4-5.0); Bilirubin Total 0.4 mg/dL (0.2-1.0); Potassium 3.8 mmol/L (3.5-5.1); Protein, Total 6.8 g/dL (6.4-8.2)
--- NOTE | 2022-04-05 07:50 | CON ---
Date of Consultation: 04/03/2022 Chief Complaint: Acute kidney failure. History Of Present Illness: The patient is a 67-year-old man who has no previous medical history of kidney disease. He denies history of kidney disease, although he has a history of kidney stone many years ago, had 1 episode of stone. He was admitted to the hospital after he sustained fall and was admitted for syncope. He became very lightheaded and fell. He denies chest pain, seizure. He has had significant weight loss over the last 6 months. He has lost approximately 20 pounds. He states that he was on low calorie intake. Denies melena, hematemesis, abdominal pain, nausea, or vomiting. He denies any history of kidney insufficiency, although he has not had appointment with his primary physician at least few years. The patient was evaluated in the emergency department and his lab work showed significant microcytic anemia, elevated platelets, mild hyponatremia, and elevated BUN and creatinine, baseline creatinine is unknown. CT scan of the head and neck was negative for acute injury. Chest x-ray was unremarkable and CT scan of abdomen and pelvis without contrast showed severe bilateral hydroureteronephrosis, which is likely chronic with evidence of renal cortical thinning and bladder distention, likely related to bladder outlet obstruction, large complex cystic lesion, possibly mass in the right hepatic lobe which was incompletely characterized without IV contrast. The patient could not have IV contrast because of kidney failure. Pulmonary nodules, mediastinal adenopathy, retroperitoneal lymphadenopathy, some suspicion for metastatic disease related to liver mass. Ordaz catheter was inserted in the emergency room and the patient was found to have 1300 of yellow urine without gross hematuria. The patient had urinary retention, although he was not complaining of any abdominal discomfort. Past Medical History: The patient denies history of hypertension, diabetes, kidney disease, although he has a history of kidney stone in the past. Social History: Never smoked. Denies drug. Denies alcohol. Family History: No kidney disease in the family. Review of Systems: General: Denies fever or chills. Eyes: Denies any vision changes. Ears, Nose, Mouth, and Throat: Denies sore throat or earache. Respiratory: Denies PND or orthopnea. Cardiovascular: Denies chest pain or palpitation. GI: Denies nausea or vomiting. : Denies kidney colic or hematuria. All other systems reviewed and all are negative. Physical Examination: General: Not in acute distress. Eyes: Anicteric sclerae. EOMI. Ears, Nose, Mouth and Throat: Oral mucosa moist. No pallor. Neck: Supple. No bruits. Lungs: Diminished breath sounds at the bases. Heart: S1 and S2. Abdomen: Soft, benign. Extremities: No edema. Laboratory Data: Hemoglobin 6.4, WBC 8.2, platelet count is 556. Sodium 127, potassium 3.8, BUN 61, creatinine 5.3, glucose 121, magnesium 2.2. Impression And Plan: 1. Acute kidney injury, likely the patient has underlying chronic kidney disease secondary to obstructive uropathy. The patient presented with bladder outlet obstruction and he was evaluated in the emergency room after he sustained a fall prior to this admission with injury to his head. The patient was found to have hypertension, liver mass, pulmonary nodule. He has significant weight loss and lymphadenopathy, suspected metastatic cancer. The patient likely has chronic obstructive uropathy. The patient had high post void residual volume and Ordaz catheter was inserted for bladder outlet obstruction. I recommend to consult urologist. The patient needs a comprehensive workup to rule out malignancy and suspected metastatic cancer. 2. Hypertension. Continue blood pressure medication, avoid ARB and angiotensin receptor doug secondary to renal failure, monitor bp and adjust medications. 3. pulmonary nodule, workup will be conducted by primary team. 3. Acute kidney on chronic kidney disease , severe bladder outlet obstruction. The patient will need a Urology. Plan is to check proteinuria and workup for possible glomerulonephritis. CAMILLE/KATI Voice ID: [id number] Report ID: [id number] TEMITOPE
--- NOTE | 2022-04-05 08:31 | RAD REPORT ---
EXAM DESCRIPTION: US - Renal Ultrasound-Complete - 04/05/2022 5:58 am CLINICAL HISTORY: ckd , henry hydronephrosis COMPARISON: Abdomen Wo Cont dated 04/04/2022 FINDINGS: There is a complex multi cystic appearing lesion in the abdomen. This displaces organs sen t makes full assessment quite limited. The right kidney measures 9.9 x 4.9 cm. Moderate hydronephrosis. The left kidney measures 10.5 x 7.3 cm. Moderate to severe hydronephrosis. The urinary bladder is incompletely distended and poorly visualized. IMPRESSION: Moderate bilateral hydronephrosis is present, greater on the left.
[2022-04-05 09:36] LABS: UR PROTEIN 197.5 mg/dL (<11.9)
[2022-04-05] MEDS: HYDRALAZINE HCL 25 MG TABLET PO SCH ×2 (09:37→20:17)
[2022-04-05] MEDS ORDERED: SOD FERRIC GLUC COMPLX/SUCROSE 250 MG in NA CHLORIDE 0.9% 250 ML IV SCH (14:00)
--- NOTE | 2022-04-05 16:14 | PN ---
Date of Progress Note: 04/05/2022 Subjective: The patient was admitted with acute kidney injury. The patient had apparently liver mass. The patient found to have also bilateral hydronephrosis. The patient has acute kidney injury, multifactorial, secondary to obstructive uropathy/on chronic kidney disease. Physical Examination: Vital Signs: When I saw the patient; blood pressure 162/89, pulse of 94, afebrile. Chest: Clear to auscultation. Heart: S1, S2. Regular. Abdomen: Soft, nontender. Extremity: No edema. Neuro: Alert. No focality. Laboratory Data: WBC 8.7, H and H 9.4/27.6. Sodium 134, potassium 3.8, bicarb 17, BUN 53, creatinine 4.2, GFR of 15 slightly better, calcium 9.2. PTH is 335. Urinalysis, 24-hour protein is >1g Current Medications: The patient on include; 1. Hydralazine. 2. Ensure. 3. Normal saline at 75 per hour. 4. Zofran. Renal ultrasound; 9.9/10.5, moderate bilateral hydronephrosis. Assessment And Plan: 1. Acute kidney injury, multifactorial, prerenal, superimposed with obstructive uropathy, looked to me still on the dry side. I am going to go ahead and increase IV fluid to 100. I had long discussion with the patient about his condition with the presence of the family by bedside. The patient also possibly had paraneoplastic. I am going to increase IV fluid, continue Ordaz. We will follow up Urology recommendation. The patient with finding, possible has metastasis, going to be a poor candidate for dialysis. Anyhow after we discussing with the patient, the patient interested if he is needing dialysis to proceed with dialysis. We will follow up improvement in the next 24 hours to evaluate. 2. Anemia of chronic kidney disease/iron deficiency anemia. We will start the patient on IV iron. 3. Obstructive uropathy with metastasis. We will follow up with Urology. Start the patient on Flomax. Continue Ordaz. 4. Dehydration. Continue current hydration. Time spent examining the patient [id number], reviewing the data, placing order, discussing with by bedside, discussing with staff member including charge nurse and nursing and hospitalist 45 minutes. PRETTY Voice ID: [id number] Report ID: [id number] MTDD
--- NOTE | 2022-04-05 19:04 | P.PN ---
Subjective Date of Service: 04/05/22 Chief Complaint: Acute renal failure, anemia Has no new complaints. Physical Examination - Vital Signs Temperature: 97.9 F Blood Pressure: 165/87 Pulse: 89 Respirations: 16 Pulse Ox (%): 99 Assessment And Plan - Plan Physical Exam: Gen:NAD HEENT: normal conjunctiva, sclera anicteric CV: regular rate/rhythm, no edema Pulm: nonlabored on room air Abd: soft, NTND, hepatomegaly. Integumentary: no rash Neuro: normal speech, moves all extremities 5/5 str Problem List: Abdominal mass / ?liver mass ; suspected metastatic cancer pulmonary nodules mediastinal lymphadenopathy Acute renal failure Bladder outlet obstruction, bilateral hydronephrosis, unknown etiology Microcytic anemia Hypertension Acute renal failure. Renal failure response to relief of urinary tract obstruction and IV hydration has been slower than expected. MRI of the abdomen reviewed and reporting large mass in or abutting the right hepatic lobe. Possible mass-effect on intra-abdominal organs. He also reports chronic constipation Patient with pulmonary nodule and mediastinal adenopathy suggesting metastatic disease. Need to be biopsied but too complex for biopsy here as mass could not be fully characterized by MRI. High risk of bleeding with biopsy. anemia - likely secondary to metastatic cancer; possibly bled in complex liver cyst. Noted his hemoglobin was 6.4 on presentation s/p 2u PRBC with good improvement Liver mass - suspect cancer, possible cystadenocarcinoma, ?prostate cancer, ?rectal - tumor markers sent Initiated transfer to [facility] for evaluation for biopsy and further treatment of the acute renal failure. Continue IV hydration for now Patient is also debilitated. Continue PT Monitor CBC and blood chemistry DVT: SCDs for now. Code: full
[2022-04-05 19:23] LABS: UR PROTEIN 216.4 mg/dL (<11.9)
[2022-04-05 19:24] LABS: UR CREAT < 18.0 mg/dL (20-370)
[2022-04-05] MEDS: JUVEN PACKET PO SCH (20:17)
[2022-04-05] MEDS: ENSURE ENLIVE 237 ML CAN PO SCH (20:17)
[2022-04-06 01:43] VITALS: O2SAT 98
[2022-04-06] MEDS: NA CHLORIDE 0.9% 1,000 ML IV SCH ×3 (03:00→13:48)
[2022-04-06 06:11] LABS: Absolute Lymphocytes (CBC) 0.5 K/uL (0.7-4.9); Hematocrit 28.8 % (39.6-49.0); Lymphocytes % 6.1 % (15.3-44.8); MCV 78.3 fL (80-100); MPV 6.5 fL (7.6-11.3); RBC Red Blood Cell Count 3.68 M/uL (4.33-5.43)
[2022-04-06 07:01] LABS: ALT/SGPT 15 U/L (12-78); AST/SGOT 17 U/L (15-37); Albumin 2.2 g/dL (3.4-5.0); Alkaline Phosphatase 213 U/L (45-117); BUN Blood Urea Nitrogen 53 mg/dL (7-18); Bicarbonate 17 mmol/L (21-32); Bilirubin Total 0.3 mg/dL (0.2-1.0); Glomerular Filtration Rate 16 ml/min (=/>90); Glucose Level 91 mg/dL (74-106); Potassium 3.5 mmol/L (3.5-5.1); Protein, Total 6.9 g/dL (6.4-8.2); Sodium Level 141 mmol/L (136-145); Transferrin 86 mg/dL (200-360)
[2022-04-06] MEDS: JUVEN PACKET PO SCH ×2 (09:00→20:49)
[2022-04-06] MEDS: ENSURE ENLIVE 237 ML CAN PO SCH ×2 (09:00→20:49)
[2022-04-06] MEDS ORDERED: AMLODIPINE 5 MG TAB PO SCH (09:00)
[2022-04-06] MEDS ORDERED: AMLODIPINE 5 MG TAB ONE (09:32)
[2022-04-06] MEDS: carvediloL 6.25 MG TAB PO SCH ×2 (09:38→16:35)
[2022-04-06] MEDS: HYDRALAZINE HCL 25 MG TABLET PO SCH ×2 (09:38→20:48)
[2022-04-06] MEDS ORDERED: AMLODIPINE 10 MG TAB PO SCH (10:00)
[2022-04-06] MEDS ORDERED: TAMSULOSIN 0.4 MG SR CAP PO SCH (10:00)
--- NOTE | 2022-04-06 14:06 | PN ---
Date of Progress Note: 04/06/2022 Subjective: The patient was admitted with acute kidney injury secondary to obstructive uropathy. The patient was started on hydration yesterday. The patient waiting for transfer for Urology evaluation. The patient has followup. Physical Examination: Vital Signs: Blood pressure 179/104, pulse of 91, afebrile. Chest: Clear to auscultation. Heart: S1, S2. Systolic murmur. Abdomen: Soft, nontender. Extremities: No edema. Neurologic: Alert. No focality. Laboratory Data: WBC 8.9, H and H 9.8/28.8. Sodium 141, potassium 3.5, bicarb 17, BUN 53, creatinine down to 3.9, GFR of 16, calcium 9.5, iron saturation 36. PTH of 44. Current Medications: The patient on include; 1. Amlodipine 5 mg. 2. Hydralazine 25 b.i.d. 3. Zofran. 4. IV fluid. 5. Hydrocodone. Assessment And Plan: 1. Acute kidney injury secondary to obstructive uropathy/prerenal. I am going to go ahead and start the patient on Flomax. Awaiting Urology followup and transfer for procedure. 2. Hypertension, not controlled. Increase amlodipine to 10. Start carvedilol and Flomax. 3. Obstructive uropathy. Start Flomax. 4. Anemia of chronic kidney disease. Unfortunately, we cannot start NORIS given the uncontrolled blood pressure. Currently, H and H have been stable. We will follow up. Time spent examining the patient [id number], reviewing the data, placing order, discussing with by bedside, discussing with staff member including charge nurse and nursing and hospitalist 45 minutes. PRETTY Voice ID: [id number] Report ID: [id number] TEMITOPE
--- NOTE | 2022-04-06 17:30 | P.PN ---
Subjective Date of Service: 04/06/22 Chief Complaint: Acute renal failure, anemia He reports loss of appetite and fatigue. Patient ambulated in the hallway today. Physical Examination - Vital Signs Temperature: 97.8 F Blood Pressure: 152/93 Pulse: 97 Respirations: 16 Pulse Ox (%): 98 Assessment And Plan - Plan Physical Exam: Gen:NAD HEENT: normal conjunctiva, sclera anicteric CV: regular rate/rhythm, no edema Pulm: nonlabored on room air Abd: soft, NTND, hepatomegaly. Integumentary: no rash Neuro: normal speech, moves all extremities 5/5 str Problem List: Abdominal mass / ?liver mass ; suspected metastatic cancer pulmonary nodules mediastinal lymphadenopathy Acute renal failure Bladder outlet obstruction, bilateral hydronephrosis, unknown etiology Microcytic anemia Hypertension Serum creatinine improving slowly with IV fluid. MRI of the abdomen reviewed and reporting large mass in or abutting the right hepatic lobe. Possible mass-effect on intra-abdominal organs. He also reports chronic constipation Patient with pulmonary nodules and mediastinal adenopathy suggesting metastatic disease. Liver mass need to be biopsied but too complex for biopsy here as mass could not be fully characterized by MRI. High risk of bleeding with biopsy. anemia - likely secondary to metastatic cancer; could be possible bleeding in complex liver cyst. Noted his hemoglobin was 6.4 on presentation s/p 2u PRBC. Hemoglobin is currently stable Liver mass - suspect cancer, possible cystadenocarcinoma, tumor markers pending. Initiated transfer to [facility] for evaluation for biopsy and further treatment of the acute renal failure pending bed availability. Continue IV hydration for now. Diet as tolerated. Maintain Ordaz catheter. Will consider urology consult if transfer to [facility] gets delayed due to bed availability. Biopsy can be done as an outpatient if his renal function significantly improve for discharge. Patient is debilitated. Continue PT Monitor CBC and blood chemistry DVT: SCDs for now. Code: full
--- NOTE | 2022-04-06 19:24 | P.DS ---
Admission Date: 04/02/22 Discharge Date: 04/06/22 Disposition: TRANSFER TO [facility] Discharge Condition: FAIR Reason for Admission: Acute renal failure, anemia Brief History of Present Illness: 67-year-old male with no known past medical history presented to the emergency department with fall/near syncope. He reports he was at [employer] getting some food when he got out of his car and put the food away he began to feel very lightheaded and fell hitting the back of his head on the ground, he denied loss of consciousness but reported feeling very weak and lightheaded. He reported he has been feeling weak, short of breath on exertion worsening since July, also reports he has been losing weight since July. He was evaluated in the emergency department his labs were significant for microcytic anemia, elevated platelets, mild hyponatremia, acute renal failure. He had a CT scan of his head neck which was negative for acute injuries, chest x-ray was unremarkable. CT chest abdomen pelvis without contrast was significant for severe bilateral hydroureteronephrosis which is likely chronic and there is evidence of renal cortical thinning, bladder distention likely related to bladder outlet obstruction. Large complex cystic and possibly solid mass in the right hepatic lobe which is incompletely characterized without contrast. Neoplasm not excluded, pulmonary nodules mediastinal adenopathy and retrofitted peritoneal lymphadenopathy suspicious for metastatic disease likely related to the liver mass. A Ordaz catheter was inserted in the emergency department which returned approximately 1300 cc of yellow urine without gross hematuria. Patient denied any melena, hematochezia or hematemesis. FOBT negative in the emergency department. Patient admitted for further management. Hospital Course: Diagosis Abdominal mass / ?liver mass ; suspected metastatic cancer pulmonary nodules mediastinal lymphadenopathy Acute renal failure Bladder outlet obstruction, bilateral hydronephrosis, unknown etiology Microcytic anemia Hypertension Severe protein calorie malnutrition Patient admitted to the medical floor and started on IV fluid. He was also transfused 2 unit PRBC for hemoglobin of 6.4. Serum creatinine improving slowly with IV fluid. MRI of the abdomen reviewed and reporting large mass in or abutting the right hepatic lobe. Possible mass-effect on intra-abdominal organs. He also reported chronic constipation Patient with pulmonary nodules and mediastinal adenopathy suggesting metastatic disease. Liver mass need to be biopsied but too complex for biopsy here as mass could not be fully characterized by MRI. High risk of bleeding with biopsy. anemia - likely secondary to metastatic cancer; could be possible bleeding in complex liver cyst. Hemoglobin was stable during the hospital stay Liver mass - suspected to be cancer, possible cystadenocarcinoma, tumor markers ordered and the results are pending. Initiated transfer to [facility] for evaluation for biopsy and further treatment of the acute renal failure. Patient accepted for transfer Maintained Ordaz catheter for acute urinary retention. Patient is debilitated. PT worked with him Vitals are stable for transfer. Vital Signs/Physical Exam: Temp Pulse Resp BP Pulse Ox 97.8 F 97 H 16 152/93 H 98 04/06/22 17:29 04/06/22 17:29 04/06/22 17:29 04/06/22 17:29 04/06/22 17:29 General: Alert, Oriented x3, Cachectic HEENT: Mucous membr. moist/pink Neck: JVD not distended Respiratory: Clear to auscultation bilaterally, Normal air movement Cardiovascular: No edema, Regular rate/rhythm Gastrointestinal: Soft and benign, Non-distended, No tenderness Musculoskeletal: No swelling Integumentary: No rashes Neurological: Other (No focal motor deficits) Laboratory Data at Discharge: WBC 8.9 K/uL (4.3-10.9) 04/06/22 05:36 Hgb 9.8 g/dL (13.6-17.9) L 04/06/22 05:36 Hct 28.8 % (39.6-49.0) L 04/06/22 05:36 Plt Count 608 K/uL (152-406) H 04/06/22 05:36 PT 16.3 SECONDS (9.5-12.5) H 04/02/22 15:55 INR 1.47 04/02/22 15:55 Sodium 141 mmol/L (136-145) 04/06/22 05:36 Potassium 3.5 mmol/L (3.5-5.1) 04/06/22 05:36 BUN 53 mg/dL (7-18) H 04/06/22 05:36 Creatinine 3.95 mg/dL (0.55-1.3) H 04/06/22 05:36 Glucose 91 mg/dL (74-106) 04/06/22 05:36 Uric Acid 3.7 mg/dL (3.5-7.2) 04/03/22 22:21 Phosphorus 3.0 mg/dL (2.5-4.9) 04/06/22 05:36 Magnesium 2.2 mg/dL (1.8-2.4) 04/02/22 15:55 Total Bilirubin 0.3 mg/dL (0.2-1.0) 04/06/22 05:36 AST 17 U/L (15-37) 04/06/22 05:36 ALT 15 U/L (12-78) 04/06/22 05:36 Alkaline Phosphatase 213 U/L (45-117) H 04/06/22 05:36 Home Medications: Amlodipine [Norvasc*] 10 mg PO DAILY tab 04/06/22 Ensure Enlive 237 ml PO BID can 04/06/22 Hydralazine [Apresoline*] 25 mg PO BID tab 04/06/22 Hydrocodone 7.5/APAP 325 [[place] 7.5/325 mg*] 1 tab PO Q6H PRN tab 04/06/22 Sha [Sha*] 1 pkt PO BID 04/06/22 Labetalol HCl [Trandate*] 10 mg IV Q6H PRN syr 04/06/22 Ondansetron [Zofran*] 4 mg IV Q6HP PRN vial 04/06/22 Tamsulosin [Flomax*] 0.4 mg PO DAILY cap 04/06/22 carvediloL [Coreg*] 6.25 mg PO BIDWM tab 04/06/22 Followup: Unknown,U [Primary Care Provider] - Time spent managing pt's care (in minutes): 40
[2022-04-06 20:26] VITALS: BP 102/59; TEMP 97.9
[2022-04-06] MEDS ORDERED: carvediloL 6.25 MG TAB PO SCH (21:00)
[2022-04-07] MEDS ORDERED: TAMSULOSIN 0.4 MG SR CAP PO SCH (09:00)
[2022-04-07] MEDS ORDERED: AMLODIPINE 10 MG TAB PO SCH (09:00)
[2022-04-07 17:44] LABS: HIV AG/AB 4TH GEN Non-reactive (Non-reactive)
[2022-04-07 18:38] LABS: PSA FREE 0.15 ng/mL
[2022-04-09 04:39] LABS: Hepatitis C Virus RNA (PCR)log <1.18 log IU/mL
[2022-04-09 23:36] LABS: Vitamin D 1,25-Dihydroxy Total 17 pg/mL (18-72); Vitamin D,1,25-OH2, D2 <8 pg/mL
[2022-04-10 18:59] LABS: HBsAG Nonreactive (Nonreactive)
== END 2022-04-06 22:30 | disposition short-term general hospital (02) | DRG 682 ==
LOC: ER 15:15 → ERHOLD 19:06 → 2ND 04-03 09:52
PROVIDERS: ADMIT Hospitalist; ATTEND Hospitalist
PROC: 30233N1 Transfusion of Nonautologous Red Blood Cells into Peripheral Vein, Percutaneous Approach (ICD-10-PCS; principal; 2022-04-02)
PROC: 0JQ03ZZ Repair Scalp Subcutaneous Tissue and Fascia, Percutaneous Approach (ICD-10-PCS; 2022-04-02)
DX: N17.9 Acute kidney failure, unspecified (principal); E43 Unspecified severe protein-calorie malnutrition; E87.1 Hypo-osmolality and hyponatremia; Z68.1 Body mass index [BMI] 19.9 or less, adult; C78.1 Secondary malignant neoplasm of mediastinum; C78.00 Secondary malignant neoplasm of unspecified lung; C22.7 Other specified carcinomas of liver; R64 Cachexia; D50.9 Iron deficiency anemia, unspecified; R59.0 Localized enlarged lymph nodes; I10 Essential (primary) hypertension; N32.0 Bladder-neck obstruction; N13.30 Unspecified hydronephrosis; K59.09 Other constipation; D63.0 Anemia in neoplastic disease; R33.9 Retention of urine, unspecified; R53.81 Other malaise; E86.0 Dehydration; L89.152 Pressure ulcer of sacral region, stage 2; S01.01XA Laceration without foreign body of scalp, initial encounter; W18.30XA Fall on same level, unspecified, initial encounter; Y92.481 Parking lot as the place of occurrence of the external cause; Z20.822 Contact with and (suspected) exposure to COVID-19
CPT/HCPCS: 36415; 36430; 51702; 70450; 71045; 71250; 72125; 74176; 74181; 76770; 80048; 80053; 80069; 80076; 81003; 81015; 82105; 82378; 82570; 82607; 82652; 82728; 82947; 83540; 83605; 83735; 83880; 83970; 84132; 84145; 84153; 84154; 84156; 84300; 84439; 84443; 84466; 84484; 84550; 85014; 85025; 85027; 85044; 85610; 86021; 86301; 86317; 86704; 86706; 86850; 86900; 86901; 86922; 87040; 87340; 87389; 87522; 87811; 93005; 97112; 97116; 97161; 99285; J0360; J2405; J2916; J7030; J7050; P9016

== ENCOUNTER 2022-09-08 10:52 | Emergency (ER) | payer OTHER ==
--- OUTSIDE RECORDS SUMMARY | 2022-09-08 10:58 | XMS REPORT | Continuity of Care Document ---
:1955 Author Organization [facility] t Address [address] [place] [address] Care Team Providers Name Role Phone Kelley Rivera NP Primary Care Physician RUBY AWAN Attending Clinician Unavailable KELLEY RIVERA Attending Clinician Unavailable KELLEY RIVERA Attending Clinician Unavailable [facility] Attending Clinician [phone] Doctor Unassigned, [place] Attending Clinician Unavailable Brown Adame MD Attending Clinician BROWN ADAME Attending Clinician Unavailable [facility] Attending Clinician Unavailable Juancarlos Murphy LMSW Attending Clinician KALEB VELASQUEZ Attending Clinician Unavailable Kaleb Velasquez MD Attending Clinician LATHA MCDONALD Attending Clinician Unavailable BRANDI ROSALES Attending Clinician Unavailable Latha Mcdonald MD Attending Clinician Brandi Rosales MD Attending Clinician [phone] Juancarlos Magana MD Attending Clinician JUANCARLOS MAGANA Admitting Clinician Unavailable Payers Payer Name Policy Type Policy Number Effective Date Expiration Date S klever MEDICARE PART A [id number] 2019 00:00:00 Problems Condition Condition Condition Status Onset Resolution Last Treating Co mments Source Name Details Category Date Date Treatment Clinician Date 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 Chronic Chronic Disease Active 2021-09 Univers kidney kidney 0-03 ity of disease, disease, 00:00: [place] unspecifie unspecifie 00 Me dical d 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 2021-09 [facility] prostatic prostatic 0-03 [place] hyperplasi [place]plasi [place] 00 [facility] urinary urinary Branch retention retention Anemia, Anemia, Disease Active 2021-09 [facility] unspecifie unspecifie 0-03 it y of d type d type 00:00: [place] [address] [facility] Fall, Fall, Disease Active 2021-09 [facility] sequela sequela 0-03 ity of 00:00: [place] [address] [facility] Metastatic Metastatic Disease Active [facility] neoplastic neoplastic - [facility] disease disease 00:00: [place] [address] [facility] LETY (acute LETY (acute Disease Active [facility] kidney kidney - [facility] injury) injury) 00:00: [place] [address] [facility] Allergies, Adverse Reactions, Alerts Allergy Allergy Status Severity Reaction(s) Onset Inactive Treating Comm ents Source Name Type Date Date Clinician NO KNOWN Allergy Active [facility] NO KNOWN Drug Active [facility] ALLERGIE Class ity of S [facility] Social History Social Habit Start Date Stop Date Quantity Comments Source History SDOH [facility] Alcohol Comment Medical C enter History SDOH [facility] Alcohol Std Medical Cent[facility] r Drinks History SDOH [facility] Alcohol Binge Medical [facility] ter Exposure to 2022-08-12 2022-08-22 Not sure University SARS-CoV-2 00:00:00 15:13:00 [facility] [place] [facility] (event) [facility] Tobacco use and 2022-04-28 2022-04-[address] [facility] [address] [facility] kes exposure 00:00:00 00:00:00 [facility] Alcohol intake 2022-04-28 2022-04-[address] [facility] es 00:00:00 00:00:00 non-drinker Medical Cent[facility] r (finding) History SDOH 2022-04-28 2022-04-28 1 [place] [place] Alcohol Frequency 00:00:00 00:00:00 [facility] Sex Ass[birth year] At [birth year] [place] 00:00:00 00:00:00 [facility] Smoking Status Start Date Stop Date Source Tobacco smoking consumption [facility] unknown Branch Never smoked tobacco [facility] Medications Ordered Filled Start Stop Current Ordering Indication Dosage Frequency Signature Comments Components Source Medication Medication Date Date Medication? Clinician (SIG) Name Name sodium 2021-09 Yes [id number] 325mg Take 1 Uni vers bicarbonate 0-03 tablet by ity of 325 mg 00:00: mouth in [place] tablet 00 the Medical morning Branch and 1 tablet in the evening. midodrine 5 2021-09 Yes [id number] 5mg Take 1 Univers mg tablet 0-03 tablet by ity o f 00:00: mouth 2 [place] (two) Medical times Branch daily as needed for Other (LOW BP READINGS). TAKE 1 TABLET BY MOUTH TWICE DAILY FOR SYSTOLIC BLOOD PRESSURE LESS THAN 120 tamsulosin 2021-09 Yes [id number] .4mg Take 1 [facility] 0.4 mg 24 0-03 capsule by ity of hr capsule 00:00: mouth in [place] 00 the Medical morning Branch and 1 capsule in the evening. ferrous 2021-09 Yes [id number] 325mg Take 1 Un jeffrey sulfate 0-03 tablet by ity of (FEROSUL) 00:00: [place] 325 mg (65 00 the Medical mg iron) morning. Branch tablet Sodium 2021-09 Yes [id number] 2{tbl} Take 2 Un jeffrey Chloride 0-03 tablets by ity o f 1,000 mg 00:00: mouth 3 [place] [facility] 00 (three) Medical times Branch daily. sodium 2021-09 Yes [id number] 325mg Take 1 Uni vers bicarbonate 0-03 tablet by ity of 325 mg 00:00: mouth in [place] tablet 00 the Medical morning Branch and 1 tablet in the evening. midodrine 5 2021-09 Yes [id number] 5mg Take 1 [facility] mg tablet 0-03 tablet by ity o f 00:00: mouth 2 [place] (two) Medical times Branch daily as needed for Other (LOW BP READINGS). TAKE 1 TABLET BY MOUTH TWICE DAILY FOR SYSTOLIC BLOOD PRESSURE LESS THAN 120 tamsulosin 2021-09 Yes [id number] .4mg Take 1 [facility] 0.4 mg 24 0-03 capsule by ity of hr capsule 00:00: mouth in [place] 00 the Medical morning Branch and 1 capsule in the evening. ferrous 2021-09 Yes [id number] 325mg Take 1 Un jeffrey sulfate 0-03 tablet by ity of (FEROSUL) 00:00: [place] 325 mg (65 00 the Medical mg iron) morning. Branch tablet Sodium 2021-09 Yes [id number] 2{tbl} Take 2 Un jeffrey Chloride 0-03 tablets by ity o f 1,000 mg 00:00: mouth 3 [place] [facility] 00 (three) Medical times Branch daily. sodium 2021-09 Yes [id number] 325mg Take 1 Uni vers bicarbonate 0-03 tablet by ity of 325 mg 00:00: mouth in [place] tablet 00 the Medical morning Branch and 1 tablet in the evening. midodrine 5 2021-09 Yes [id number] 5mg Take 1 [facility] mg tablet 0-03 tablet by ity o f 00:00: mouth 2 [place] 00 (two) Medical times Branch daily as needed for Other (LOW BP READINGS). TAKE 1 TABLET BY MOUTH TWICE DAILY FOR SYSTOLIC BLOOD PRESSURE LESS THAN 120 tamsulosin 2021-09 Yes [id number] .4mg Take 1 [facility] 0.4 mg 24 0-03 capsule by ity of hr capsule 00:00: mouth in [place] 00 the Medical morning Branch and 1 capsule in the evening. ferrous 2021-09 Yes [id number] 325mg Take 1 Un jeffrey sulfate 0-03 tablet by ity of (FEROSUL) 00:00: [place] 325 mg (65 00 the Medical mg iron) morning. Branch tablet Sodium 2021-09 Yes [id number] 2{tbl} Take 2 Un jeffrey Chloride 0-03 tablets by ity o f 1,000 mg 00:00: mouth 3 [place] [facility] 00 (three) Medical times Branch daily. sodium 2021-09 Yes [id number] 325mg Take 1 Uni vers bicarbonate 0-03 tablet by ity of 325 mg 00:00: mouth in [place] tablet 00 the Medical morning Branch and 1 tablet in the evening. midodrine 5 2021-09 Yes [id number] 5mg Take 1 [facility] mg tablet 0-03 tablet by ity o f 00:00: mouth 2 [place] (two) Medical times Branch daily as needed for Other (LOW BP READINGS). TAKE 1 TABLET BY MOUTH TWICE DAILY FOR SYSTOLIC BLOOD PRESSURE LESS THAN 120 tamsulosin 2021-09 Yes [id number] .4mg Take 1 [facility] 0.4 mg 24 0-03 capsule by ity of hr capsule 00:00: mouth in [place] 00 the Medical morning Branch and 1 capsule in the evening. ferrous 2021-09 Yes [id number] 325mg Take 1 Un jeffrey sulfate 0-03 tablet by ity of (FEROSUL) 00:[facility] ([facility] the Medical mg iron) morning. Branch tablet Sodium 2021-09 Yes [id number] 2{tbl} Take 2 Un jeffrey Chloride 0-03 tablets by ity o f 1,000 mg 00:00: mouth 3 [facility] 00 (three) Medical times Branch daily. sodium 2021-09 Yes [id number] 325mg Take 1 Uni vers bicarbonate 0-03 tablet by ity of 325 mg 00:00: mouth in [place] tablet 00 the Medical morning Branch and 1 tablet in the evening. midodrine 5 2021-09 Yes [id number] 5mg Take 1 [facility] mg tablet 0-03 tablet by ity o f 00:00: mouth 2 [place] (two) Medical times [facility] daily as needed for Other (LOW BP READINGS). TAKE 1 TABLET BY MOUTH TWICE DAILY FOR SYSTOLIC BLOOD PRESSURE LESS THAN 120 tamsulosin 2021-09 Yes [id number] .4mg Take 1 [facility] 0.4 mg 24 0-03 capsule by ity of hr capsule 00:00: mouth in [place] 00 the Medical morning Branch and 1 capsule in the evening. ferrous 2021-09 Yes [id number] 325mg Take 1 Un jeffrey sulfate 0-03 tablet by ity of (FEROSUL) 00:00: [place] 325 mg (65 00 the Medical mg iron) morning. Branch tablet Sodium 2021-09 Yes [id number] 2{tbl} Take 2 Un jeffrey Chloride 0-03 tablets by ity o f 1,000 mg 00:00: mouth 3 [place] TbSO 00 (three) Medical times Branch daily. sodium 2021-09 Yes [id number] 325mg Take 1 Uni vers bicarbonate 0-03 tablet by ity of 325 mg 00:00: mouth in [place] tablet 00 the Medical morning Branch and 1 tablet in the evening. midodrine 2021-09 Yes [id number] 5mg Take 1 [facility] mg tablet 0-03 tablet by ity o f 00:00: mouth 2 [place] 00 (two) Medical times Branch daily as needed for Other (LOW BP READINGS). TAKE 1 TABLET BY MOUTH TWICE DAILY FOR SYSTOLIC BLOOD PRESSURE LESS THAN 120 tamsulosin 2021-09 Yes [id number] .4mg Take 1 [facility] 0.4 mg 24 0-03 capsule by ity of hr capsule 00:00: mouth in [place] 00 the Medical morning Branch and 1 capsule in the evening. ferrous 2021-09 Yes [id number] 325mg Take 1 Un jeffrey sulfate 0-03 tablet by ity of (FEROSUL) 00:00: [place] 325 mg (65 00 the Medical mg iron) morning. Branch tablet Sodium 2021-09 Yes [id number] 2{tbl} Take 2 Un jeffrey Chloride 0-03 tablets by ity o f 1,000 mg 00:00: mouth 3 [place] TbSO 00 (three) Medical times Branch daily. sodium 2021-09 Yes [id number] 325mg Take 1 Uni vers bicarbonate 0-03 tablet by ity of 325 mg 00:00: mouth in [place] tablet 00 the Medical morning Branch and 1 tablet in the evening. midodrine 2021-09 Yes [id number] 5mg Take 1 [facility] mg tablet 0-03 tablet by ity o f 00:00: mouth 2 [place] (two) Medical times [facility] daily as needed for Other (LOW BP READINGS). TAKE 1 TABLET BY MOUTH TWICE DAILY FOR SYSTOLIC BLOOD PRESSURE LESS THAN 120 tamsulosin 2021-09 Yes [id number] .4mg Take 1 [facility] 0.4 mg 24 0-03 capsule by ity of hr capsule 00:00: mouth in [place] 00 the Medical morning Branch and 1 capsule in the evening. ferrous 2021-09 Yes [id number] 325mg Take 1 Un jeffrey sulfate 0-03 tablet by ity of (FEROSUL) 00:00: [place] 325 mg (65 00 the Medical mg iron) morning. Branch tablet Sodium 2021-09 Yes [id number] 2{tbl} Take 2 Un jeffrey Chloride 0-03 tablets by ity o f 1,000 mg 00:00: mouth 3 [place] Tb[facility] 00 (three) Medical times Branch daily. sodium 2021-09 Yes [id number] 325mg Take 1 Uni vers bicarbonate 0-03 tablet by ity of 325 mg 00:00: mouth in [place] tablet 00 the Medical morning Branch and 1 tablet in the evening. midodrine 5 2021-09 Yes [id number] 5mg Take 1 [facility] mg tablet 0-03 tablet by ity o f 00:00: mouth 2 [place] (two) Medical times Branch daily as needed for Other (LOW BP READINGS). TAKE 1 TABLET BY MOUTH TWICE DAILY FOR SYSTOLIC BLOOD PRESSURE LESS THAN 120 tamsulosin 2021-09 Yes [id number] .4mg Take 1 [facility] 0.4 mg 24 0-03 capsule by ity of hr capsule 00:00: mouth in [place] 00 the Medical morning Branch and 1 capsule in the evening. ferrous 2021-09 Yes [id number] 325mg Take 1 Un jeffrey sulfate 0-03 tablet by ity of (FEROSUL) 00:00: mouth in [facility] s 325 mg (65 00 the Medical mg iron) morning. Branch tablet Sodium 2021-09 Yes [id number] 2{tbl} Take 2 Un jeffrey Chloride 0-03 tablets by ity o f 1,000 mg 00:00: mouth 3 [place] Tb[facility] (three) Medical times Branch daily. sodium 2021-09 Yes [id number] 325mg Take 1 Uni vers bicarbonate 0-03 tablet by ity of 325 mg 00:00: mouth in [place] tablet 00 the Medical morning Branch and 1 tablet in the evening. midodrine 5 2021-09 Yes [id number] 5mg Take 1 Univers mg tablet 0-03 tablet by ity o f 00:00: mouth 2 [place] (two) Medical times Branch daily as needed for Other (LOW BP READINGS). TAKE 1 TABLET BY MOUTH TWICE DAILY FOR SYSTOLIC BLOOD PRESSURE LESS THAN 120 tamsulosin 2021-09 Yes [id number] .4mg Take 1 Univers 0.4 mg 24 0-03 capsule by ity of hr capsule 00:00: mouth in [place] 00 the Medical morning Branch and 1 capsule in the evening. ferrous 2021-09 Yes [id number] 325mg Take 1 Un jeffrey sulfate 0-03 tablet by ity of (FEROSUL) 00:00: mouth [place] 325 mg (65 00 the Medical mg iron) morning. Branch tablet Sodium 2021-09 Yes [id number] 2{tbl} Take 2 Un jeffrey Chloride 0-03 tablets by ity o f 1,000 mg 00:00: mouth 3 [place] Tb[facility] 00 (three) Medical times Branch daily. sodium 2021-09 Yes [id number] 325mg Take 1 Uni vers bicarbonate 0-03 tablet by ity of 325 mg 00:00: mouth in [place] tablet 00 the Medical morning Branch and 1 tablet in the evening. midodrine 5 2021-09 Yes [id number] 5mg Take 1 [facility] mg tablet 0-03 tablet by ity o f 00:00: mouth 2 [place] (two) Medical times Branch daily as needed for Other (LOW BP READINGS). TAKE 1 TABLET BY MOUTH TWICE DAILY FOR SYSTOLIC BLOOD PRESSURE LESS THAN 120 tamsulosin 2021-09 Yes [id number] .4mg Take 1 [facility] 0.4 mg 24 0-03 capsule by ity of hr capsule 00:00: mouth in [place] 00 the Medical morning Branch and 1 capsule in the evening. ferrous 2021-09 Yes [id number] 325mg Take 1 Un jeffrey sulfate 0-03 tablet by ity of (FEROSUL) 00:00: mouth [place] 325 mg (65 00 the Medical mg iron) morning. Branch tablet Sodium 2021-09 Yes [id number] 2{tbl} Take 2 Un jeffrey Chloride 0-03 tablets by ity o f 1,000 mg 00:00: mouth 3 [place] TbSO 00 (three) Medical times Branch daily. sodium 2021-09 Yes [id number] 325mg Take 1 Uni vers bicarbonate 0-03 tablet by ity of 325 mg 00:00: mouth in [place] tablet 00 the Medical morning Branch and 1 tablet in the evening. midodrine 5 2021-09 Yes [id number] 5mg Take 1 Univers mg tablet 0-03 tablet by ity o f 00:00: mouth 2 [place] 00 (two) Medical times Branch daily as needed for Other (LOW BP READINGS). TAKE 1 TABLET BY MOUTH TWICE DAILY FOR SYSTOLIC BLOOD PRESSURE LESS THAN 120 tamsulosin 2021-09 Yes [id number] .4mg Take 1 [facility] 0.4 mg 24 0-03 capsule by ity of hr capsule 00:00: mouth in [place] 00 the Medical morning Branch and 1 capsule in the evening. ferrous 2021-09 Yes [id number] 325mg Take 1 Un jeffrey sulfate 0-03 tablet by ity of (FEROSUL) 00:00: mouth [place] 325 mg (65 00 the Medical mg iron) morning. Branch tablet Sodium 2021-09 Yes [id number] 2{tbl} Take 2 Un jeffrey Chloride 0-03 tablets by ity o f 1,000 mg 00:00: mouth 3 [place] Tb[facility] 00 (three) Medical times Branch daily. sodium 2021-09 Yes [id number] 325mg Take 1 Uni vers bicarbonate 0-03 tablet by ity of 325 mg 00:00: mouth in [place] tablet 00 the Medical morning Branch and 1 tablet in the evening. midodrine 5 2021-09 Yes [id number] 5mg Take 1 Univers mg tablet 0-03 tablet by ity o f 00:00: mouth 2 [place] 00 (two) Medical times Branch daily as needed for Other (LOW BP READINGS). TAKE 1 TABLET BY MOUTH TWICE DAILY FOR SYSTOLIC BLOOD PRESSURE LESS THAN 120 tamsulosin 2021-09 Yes [id number] .4mg Take 1 Univers 0.4 mg 24 0-03 capsule by ity of hr capsule 00:00: mouth in [place] 00 the Medical morning Branch and 1 capsule in the evening. ferrous 2021-09 Yes [id number] 325mg Take 1 Un jeffrey sulfate 0-03 tablet by ity of (FEROSUL) 00:00: mouth in [place] 325 mg (65 00 the Medical mg iron) morning. Branch tablet Sodium 2021-09 Yes [id number] 2{tbl} Take 2 Un jeffrey Chloride 0-03 tablets by ity o f 1,000 mg 00:00: mouth 3 [place] Tb[facility] 00 (three) Medical times Branch daily. sodium 2021-09 Yes [id number] 325mg Take 1 Uni vers bicarbonate 0-03 tablet by ity of 325 mg 00:00: mouth in [place] tablet 00 the Medical morning Branch and 1 tablet in the evening. midodrine 5 2021-09 Yes [id number] 5mg Take 1 Univers mg tablet 0-03 tablet by ity o f 00:00: mouth 2 [place] 00 (two) Medical times Branch daily as needed for Other (LOW BP READINGS). TAKE 1 TABLET BY MOUTH TWICE DAILY FOR SYSTOLIC BLOOD PRESSURE LESS THAN 120 tamsulosin 2021-09 Yes [id number] .4mg Take 1 [facility] 0.4 mg 24 0-03 capsule by ity of hr capsule 00:00: mouth in [place] 00 the Medical morning Branch and 1 capsule in the evening. ferrous 2021-09 Yes [id number] 325mg Take 1 Un jeffrey sulfate 0-03 tablet by ity of (FEROSUL) 00:00: mouth in [place] 325 mg (65 00 the Medical mg iron) morning. Branch tablet Sodium 2021-09 Yes [id number] 2{tbl} Take 2 Un jeffrey Chloride 0-03 tablets by ity o f 1,000 mg 00:00: mouth 3 [place] [facility] 00 (three) Medical times Branch daily. sodium 2021-09 Yes [id number] 325mg Take 1 Uni vers bicarbonate 0-03 tablet by ity of 325 mg 00:00: mouth in [place] tablet 00 the Medical morning Branch and 1 tablet in the evening. midodrine 5 2021-09 Yes [id number] 5mg Take 1 Univers mg tablet 0-03 tablet by ity o f 00:00: mouth 2 [place] 00 (two) Medical times Branch daily as needed for Other (LOW BP READINGS). TAKE 1 TABLET BY MOUTH TWICE DAILY FOR SYSTOLIC BLOOD PRESSURE LESS THAN 120 tamsulosin 2021-09 Yes [id number] .4mg Take 1 Univers 0.4 mg 24 0-03 capsule by ity of hr capsule 00:00: mouth in [place] 00 the Medical morning Branch and 1 capsule in the evening. ferrous 2021-09 Yes [id number] 325mg Take 1 Un jeffrey sulfate 0-03 tablet by ity of (FEROSUL) 00:00: mouth in [place] 325 mg (65 00 the Medical mg iron) morning. Branch tablet Sodium 2021-09 Yes [id number] 2{tbl} Take 2 Un jeffrey Chloride 0-03 tablets by ity o f 1,000 mg 00:00: mouth 3 [place] [facility] 00 (three) Medical times Branch daily. sodium 2021-09 Yes [id number] 325mg Take 1 Uni vers bicarbonate 0-03 tablet by ity of 325 mg 00:00: mouth in [place] tablet 00 the Medical morning Branch and 1 tablet in the evening. midodrine 5 2021-09 Yes [id number] 5mg Take 1 Univers mg tablet 0-03 tablet by ity o f 00:00: mouth 2 (two) Medical times Branch daily as needed for Other (LOW BP READINGS). TAKE 1 TABLET BY MOUTH TWICE DAILY FOR SYSTOLIC BLOOD PRESSURE LESS THAN 120 tamsulosin 2021-09 Yes [id number] .4mg Take 1 Univers 0.4 mg 24 0-03 capsule by ity of hr capsule 00:00: mouth in [place] 00 the Medical morning Branch and 1 capsule in the evening. ferrous 2021-09 Yes [id number] 325mg Take 1 Un jeffrey sulfate 0-03 tablet by ity of (FEROSUL) 00:00: mouth in [place] 325 mg (65 00 the Medical mg iron) morning. Branch tablet Sodium 2021-09 Yes [id number] 2{tbl} Take 2 Un jeffrey Chloride 0-03 tablets by ity o f 1,000 mg 00:00: mouth 3 [facility] (three) Medical times Branch daily. sodium 2021-09 Yes [id number] 325mg Take 1 Uni vers bicarbonate 0-03 tablet by ity of 325 mg 00:00: mouth in [place] tablet 00 the Medical morning Branch and 1 tablet in the evening. midodrine 5 2021-09 Yes [id number] 5mg Take 1 [facility] mg tablet 0-03 tablet by ity o f 00:00: mouth 2 [place] (two) Medical times Branch daily as needed for Other (LOW BP READINGS). TAKE 1 TABLET BY MOUTH TWICE DAILY FOR SYSTOLIC BLOOD PRESSURE LESS THAN 120 tamsulosin 2021-09 Yes [id number] .4mg Take 1 [facility] 0.4 mg 24 0-03 capsule by ity of hr capsule 00:00: mouth in [place] 00 the Medical morning Branch and 1 capsule in the evening. ferrous 2021-09 Yes [id number] 325mg Take 1 Un jeffrey sulfate 0-03 tablet by ity of (FEROSUL) 00:00: mouth in [place] 325 mg (65 00 the Medical mg iron) morning. Branch tablet Sodium 2021-09 Yes [id number] 2{tbl} Take 2 Un jeffrey Chloride 0-03 tablets by ity o f 1,000 mg 00:00: mouth 3 [place] Tb[facility] 00 (three) Medical times Branch daily. sodium 2021-09 Yes [id number] 325mg Take 1 Uni vers bicarbonate 0-03 tablet by ity of 325 mg 00:00: mouth in [place] tablet 00 the Medical morning Branch and 1 tablet in the evening. midodrine 5 2021-09 Yes [id number] 5mg Take 1 Univers mg tablet 0-03 tablet by ity o f 00:00: mouth 2 [place] (two) Medical times Branch daily as needed for Other (LOW BP READINGS). TAKE 1 TABLET BY MOUTH TWICE DAILY FOR SYSTOLIC BLOOD PRESSURE LESS THAN 120 tamsulosin 2021-09 Yes [id number] .4mg Take 1 [facility] 0.4 mg 24 0-03 capsule by ity of hr capsule 00:00: mouth in [place] 00 the Medical morning Branch and 1 capsule in the evening. ferrous 2021-09 Yes [id number] 325mg Take 1 Un jeffrey sulfate 0-03 tablet by ity of (FEROSUL) 00:00: mouth in [place] 325 mg (65 00 the Medical mg iron) morning. Branch tablet Sodium 2021-09 Yes [id number] 2{tbl} Take 2 Un jeffrey Chloride 0-03 tablets by ity o f 1,000 mg 00:00: mouth 3 [place] [facility] 00 (three) Medical times Branch daily. sodium 2021-09 Yes [id number] 325mg Take 1 Uni vers bicarbonate 0-03 tablet by ity of 325 mg 00:00: mouth in [place] tablet 00 the Medical morning Branch and 1 tablet in the evening. midodrine 5 2021-09 Yes [id number] 5mg Take 1 [facility] mg tablet 0-03 tablet by ity o f 00:00: mouth 2 [place] (two) Medical times Branch daily as needed for Other (LOW BP READINGS). TAKE 1 TABLET BY MOUTH TWICE DAILY FOR SYSTOLIC BLOOD PRESSURE LESS THAN 120 tamsulosin 2021-09 Yes [id number] .4mg Take 1 [facility] 0.4 mg 24 0-03 capsule by ity of hr capsule 00:00: mouth in [place] 00 the Medical morning Branch and 1 capsule in the evening. ferrous 2021-09 Yes [id number] 325mg Take 1 Un jeffrey sulfate 0-03 tablet by ity of (FEROSUL) 00:00: mouth in [place] 325 mg (65 00 the Medical mg iron) morning. Branch tablet Sodium 2021-09 Yes [id number] 2{tbl} Take 2 Un jeffrey Chloride 0-03 tablets by ity o f 1,000 mg 00:00: mouth 3 [place] [facility] 00 (three) Medical times Branch daily. sodium 2021-09 Yes [id number] 325mg Take 1 Uni vers bicarbonate 0-03 tablet by ity of 325 mg 00:00: mouth in [place] tablet 00 the Medical morning Branch and 1 tablet in the evening. midodrine 5 2021-09 Yes [id number] 5mg Take 1 [facility] mg tablet 0-03 tablet by ity o f 00:00: mouth 2 [place] (two) Medical times Branch daily as needed for Other (LOW BP READINGS). TAKE 1 TABLET BY MOUTH TWICE DAILY FOR SYSTOLIC BLOOD PRESSURE LESS THAN 120 tamsulosin 2021-09 Yes [id number] .4mg Take 1 [facility] 0.4 mg 24 0-03 capsule by ity of hr capsule 00:00: mouth in [place] 00 the Medical morning Branch and 1 capsule in the evening. ferrous 2021-09 Yes [id number] 325mg Take 1 Un jeffrey sulfate 0-03 tablet by ity of (FEROSUL) 00:00: mouth in [place] 325 mg (65 00 the Medical mg iron) morning. Branch tablet Sodium 2021-09 Yes [id number] 2{tbl} Take 2 Un jeffrey Chloride 0-03 tablets by ity o f 1,000 mg 00:00: mouth 3 [place] Tb[facility] 00 (three) Medical times Branch daily. sodium 2021-09 Yes [id number] 325mg Take 1 Uni vers bicarbonate 0-03 tablet by ity of 325 mg 00:00: mouth in [place] tablet 00 the Medical morning Branch and 1 tablet in the evening. midodrine 5 2021-09 Yes [id number] 5mg Take 1 [facility] mg tablet 0-03 tablet by ity o f 00:00: mouth 2 (two) Medical times Branch daily as needed for Other (LOW BP READINGS). TAKE 1 TABLET BY MOUTH TWICE DAILY FOR SYSTOLIC BLOOD PRESSURE LESS THAN 120 tamsulosin 2021-09 Yes [id number] .4mg Take 1 [facility] 0.4 mg 24 0-03 capsule by ity of hr capsule 00:00: mouth in [place] 00 the Medical morning Branch and 1 capsule in the evening. ferrous 2021-09 Yes [id number] 325mg Take 1 Un jeffrey sulfate 0-03 tablet by ity of (FEROSUL) 00:00: mouth in [place] 325 mg (65 00 the Medical mg iron) morning. Branch tablet Sodium 2021-09 Yes [id number] 2{tbl} Take 2 Un jeffrey Chloride 0-03 tablets by ity o f 1,000 mg 00:00: mouth 3 [place] Tb[facility] 00 (three) Medical times Branch daily. sodium 2021-09 Yes [id number] 325mg Take 1 Uni vers bicarbonate 0-03 tablet by ity of 325 mg 00:00: mouth in [place] tablet 00 the Medical morning Branch and 1 tablet in the evening. midodrine 5 2021-09 Yes [id number] 5mg Take 1 [facility] mg tablet 0-03 tablet by ity o f 00:00: mouth 2 [place] 00 (two) Medical times Branch daily as needed for Other (LOW BP READINGS). TAKE 1 TABLET BY MOUTH TWICE DAILY FOR SYSTOLIC BLOOD PRESSURE LESS THAN 120 tamsulosin 2021-09 Yes [id number] .4mg Take 1 [facility] 0.4 mg 24 0-03 capsule by ity of hr capsule 00:00: mouth in [place] 00 the Medical morning Branch and 1 capsule in the evening. ferrous 2021-09 Yes [id number] 325mg Take 1 Un jeffrey sulfate 0-03 tablet by ity of (FEROSUL) 00:00: mouth in [place] 325 mg (65 00 the Medical mg iron) morning. Branch tablet Sodium 2021-09 Yes [id number] 2{tbl} Take 2 Un jeffrey Chloride 0-03 tablets by ity o f 1,000 mg 00:00: mouth 3 [place] TbSO 00 (three) Medical times Branch daily. tamsulosin 2021-09- No [id number] .4mg Take 1 Univers 0.4 mg 24 0-03 10-03 capsule by ity of hr capsule 00:00: 00:00 [place] :00 the Medical morning. Branch tamsulosin 2021-09- No [id number] .4mg Take 1 Univers 0.4 mg 24 0-03 10-03 capsule by ity of hr capsule 00:00: 00:[place] :00 the Medical morning. Branch tamsulosin 2021-09- No [id number] .4mg Take 1 Univers 0.4 mg 24 0-03 10- capsule by ity of hr capsule 00:00: 00:[place] :00 the Medical morning. Branch tamsulosin 2021-09 No [id number] .4mg Take 1 Univers 0.4 mg 24 0-03 10-03 capsule by ity of hr capsule 00:00: 00:[place] :00 the Medical morning. Branch tamsulosin 2021-09 No [id number] .4mg Take 1 Univers 0.4 mg 24 0-03 10- capsule by ity of hr capsule 00:00: 00:[place] :00 the Medical morning. Branch midodrine 5 2021- No 5mg Take 5 mg Univers mg tablet 05-03 by mouth 2 ity of 00:00: 00:00 (two) [place] 00 :00 times Medical daily as Branch needed. TAKE 1 TABLET BY MOUTH TWICE DAILY FOR SYSTOLIC BLOOD PRESSURE OVER 120 Sodium 2021- No 2{tbl} Take 2 Univer s Chloride 05-03 tablets by ity of 1,000 mg 00:00: 00:00 mouth 3 [place] TbSO 00 :00 (three) Medical times Branch daily. midodrine 5 2021- No 5mg Take 5 mg Univers mg tablet 05-03 by mouth 2 ity of 00:00: 00:00 (two) [place] 00 :00 times Medical daily as Branch needed. TAKE 1 TABLET BY MOUTH TWICE DAILY FOR SYSTOLIC BLOOD PRESSURE OVER 120 Sodium 2021- No 2{tbl} Take 2 Univer s Chloride 05-03 tablets by ity of 1,000 mg 00:00: 00:00 mouth 3 [place] TbSO 00 :00 (three) Medical times Branch daily. midodrine 5 2021- No 5mg Take 5 mg Univers mg tablet 05-03 by mouth 2 ity of 00:00: 00:00 (two) [place] 00 :00 times Medical daily as Branch needed. TAKE 1 TABLET BY MOUTH TWICE DAILY FOR SYSTOLIC BLOOD PRESSURE OVER 120 Sodium 2021- No 2{tbl} Take 2 Univer s Chloride 05-03 tablets by ity of 1,000 mg 00:00: 00:00 mouth 3 [place] TbSO 00 :00 (three) Medical times Branch daily. midodrine 5 No 5mg Take 5 mg Univers mg tablet 05-03 by mouth 2 ity of 00:00: 00:00 (two) [place] 00 :00 times Medical daily as Branch needed. TAKE 1 TABLET BY MOUTH TWICE DAILY FOR SYSTOLIC BLOOD PRESSURE OVER 120 Sodium No 2{tbl} Take 2 Univer s Chloride 05-03 tablets by ity of 1,000 mg 00:00: 00:00 mouth 3 [place] TbSO 00 :00 (three) Medical times Branch daily. midodrine 5 No 5mg Take 5 mg Univers mg tablet 05-03 by mouth 2 ity of 00:00: 00:00 (two) [place] 00 :00 times Medical daily as Branch needed. TAKE 1 TABLET BY MOUTH TWICE DAILY FOR SYSTOLIC BLOOD PRESSURE OVER 120 Sodium No 2{tbl} Take 2 Univer s Chloride 05-03 tablets by ity of 1,000 mg 00:00: 00:00 mouth 3 [place] TbSO 00 :00 (three) Medical times Branch daily. polyethylen Yes 17g Take 17 g U nivers e glycol 8-22 by mouth ity of 3350 17 00:00: [place] gram/dose 00 Medical powder Branch polyethylen Yes 17g Take 17 g U nivers e glycol 8-22 by mouth ity of 3350 17 00:00: [place] gram/dose 00 Medical powder Branch polyethylen Yes 17g Take 17 g U nivers e glycol 8-22 by mouth ity of 3350 17 00:00: [place] gram/dose 00 Medical powder Branch polyethylen Yes 17g Take 17 g U nivers e glycol 8-22 by mouth ity of 3350 17 00:00: [place] gram/dose 00 Medical powder Branch polyethylen Yes 17g Take 17 g U nivers e glycol 8-22 by mouth ity of 3350 17 00:00: [place]. [place] gram/dose 00 Medical powder Branch polyethylen 2-0 Yes 17g Take 17 g U nivers e glycol 8-22 by mouth ity of 3350 17 00:00: [place]. [place] gram/dose 00 Medical powder Branch polyethylen 2-0 Yes 17g Take 17 g U nivers e glycol 8-22 by mouth ity of 3350 17 00:00: [place]. [place] gram/dose 00 Medical powder Branch polyethylen 2-0 Yes 17g Take 17 g U nivers e glycol 8-22 by mouth ity of 3350 17 00:00: as [place]. [place] gram/dose 00 Medical powder Branch polyethylen 2-0 Yes 17g Take 17 g U nivers e glycol 8-22 by mouth ity of 3350 17 00:00: [place]. [place] gram/dose 00 Medical powder Branch polyethylen 2-0 Yes 17g Take 17 g U nivers e glycol 8-22 by mouth ity of 3350 17 00:00: as [place]. [place] gram/dose 00 Medical powder Branch polyethylen 2-0 Yes 17g Take 17 g U nivers e glycol 8-22 by mouth ity of 3350 17 00:00: [place]. [place] gram/dose 00 Medical powder Branch polyethylen 2-0 Yes 17g Take 17 g U nivers e glycol 8-22 by mouth ity of 3350 17 00:00: [place]. [place] gram/dose 00 Medical powder Branch polyethylen 2-0 Yes 17g Take 17 g U nivers e glycol 8-22 by mouth ity of 3350 17 00:00: [place]. [place] gram/dose 00 Medical powder Branch polyethylen 2022-0 Yes 17g Take 17 g U nivers e glycol 8-22 by mouth ity of 3350 17 00:00: as [place]. [place] gram/dose 00 Medical powder Branch polyethylen 2022-0 Yes 17g Take 17 g U nivers e glycol 8-22 by mouth ity of 3350 17 00:00: [place]. [place] gram/dose 00 Medical powder Branch polyethylen 2022-0 Yes 17g Take 17 g U nivers e glycol 8-22 by mouth ity of 3350 17 00:00: as [place]. [place] gram/dose 00 Medical powder Branch polyethylen 2022-0 Yes 17g Take 17 g U nivers e glycol 8-22 by mouth ity of 3350 17 00:00: as [place]. [place] gram/dose 00 Medical powder Branch polyethylen 2022-0 Yes 17g Take 17 g U nivers e glycol 8-22 by mouth ity of 3350 17 00:00: as [place]. [place] gram/dose 00 Medical powder Branch polyethylen 2-0 Yes 17g Take 17 g U nivers e glycol 8-22 by mouth ity of 3350 17 00:00: as [place]. [place] gram/dose 00 Medical powder Branch polyethylen 2-0 Yes 17g Take 17 g U nivers e glycol 8-22 by mouth ity of 3350 17 00:00: as [place]. [place] gram/dose 00 Medical powder Branch polyethylen 2-0 Yes 17g Take 17 g U nivers e glycol 8-22 by mouth ity of 3350 17 00:00: [place]. [place] gram/dose 00 Medical powder Branch FEROSUL 325 2021-0 2021- No 325mg Take 325 Univers mg (65 mg 8-22 10-03 mg by ity of iron) 00:00: 00:00 mouth in [place] tablet 00 :00 the Medical morning. Branch sodium 2021-0 2021- No 325mg Take 325 Unive rs bicarbonate 8-22 10-03 mg by ity of 325 mg 00:00: 00:00 mouth in [place] tablet 00 :00 the Medical morning Branch and 325 mg in the evening. tamsulosin 2021-0 2021- No .4mg Take 0.4 Un jeffrey 0.4 mg 24 8-22 10-03 mg by ity of hr capsule 00:00: 00:00 [place] 00 :00 the Medical morning. Branch FEROSUL 325 2021-0 2021- No 325mg Take 325 Univers mg (65 mg 8-22 10-03 mg by ity of iron) 00:00: 00:00 mouth in [place] tablet 00 :00 the Medical morning. Branch sodium 2021-0 2021- No 325mg Take 325 Unive rs bicarbonate 8-22 10-03 mg by ity of 325 mg 00:00: 00:00 mouth in [place] tablet 00 :00 the Medical morning Branch and 325 mg in the evening. tamsulosin 2022-0 2022- No .4mg Take 0.4 Un jeffrey 0.4 mg 24 8-22 10-03 mg by ity of hr capsule 00:00: 00:00 [place] 00 :00 the Medical morning. Branch FEROSUL 325 2022-0 2022- No 325mg Take 325 Univers mg (65 mg 8-22 10-03 mg by ity of iron) 00:00: 00:00 mouth in [place] tablet 00 :00 the Medical morning. Branch sodium 2022-0 2022- No 325mg Take 325 Unive rs bicarbonate 8-22 10-03 mg by ity of 325 mg 00:00: 00:00 mouth in [place] tablet 00 :00 the Medical morning Branch and 325 mg in the evening. tamsulosin 2022-0 2022- No .4mg Take 0.4 Un jeffrey 0.4 mg 24 8-22 10-03 mg by ity of hr capsule 00:00: 00:00 [place] 00 :00 the Medical morning. Branch FEROSUL 325 2022-0 2022- No 325mg Take 325 Univers mg (65 mg 8-22 10-03 mg by ity of iron) 00:00: 00:00 mouth in [place] tablet 00 :00 the Medical morning. Branch sodium 2022-0 2022- No 325mg Take 325 Unive rs bicarbonate 8-22 10-03 mg by ity of 325 mg 00:00: 00:00 mouth in [place] tablet 00 :00 the Medical morning Branch and 325 mg in the evening. tamsulosin 2022-0 2022- No .4mg Take 0.4 Un jeffrey 0.4 mg 24 8-22 10-03 mg by ity of hr capsule 00:00: 00:00 [place] 00 :00 the Medical morning. Branch FEROSUL 325 2022-0 2022- No 325mg Take 325 Univers mg (65 mg 8-22 10-03 mg by ity of iron) 00:00: 00:00 mouth in [place] tablet 00 :00 the Medical morning. Branch sodium 2022-0 2022- No 325mg Take 325 Unive rs bicarbonate 8-22 10-03 mg by ity of 325 mg 00:00: 00:00 mouth in [place] tablet 00 :00 the Medical morning Branch and 325 mg in the evening. tamsulosin 2022-0 2022- No .4mg Take 0.4 Un jeffrey 0.4 mg 24 05-02 10-03 mg by ity of hr capsule 00:00: 00:00 [place] 00 :00 the Medical morning. Branch sodium 2021-2021- No 650mg Q.5D Take [address] [facility] [address] bicarbonate 04-29 tablets Luke s 325 MG 00:00: 23:59 (650 mg Medical tablet 00 :00 total) by Center mouth 2 (two) times daily for 30 days. sodium 2021-0 2022- No 2g Take [address] [facility] chloride 1 04-20-10 tablets (2 Charlene kes gram tablet 00:00: 23:59 g total) M edical 00 :00 by mouth 3 Center (three) times daily with meals. ferrous 2021-2022- No 325mg QD Take [address] [facility] sulfate 325 04-19 tablet [facility] (65 FE) MG 00:00: 23:59 (325 mg Med ical tablet 00 :00 total) by Center mouth daily. tamsulosin 2021-0 2021- No .4mg QD Take [address] [facility] (FLOMAX) 04-19- capsule [facility] 0.4 mg Cap 00:00: 23:59 (0.4 mg Med ical 24 hr 00 :00 total) by Center capsule mouth daily for 30 days. sodium 2021-2021- No 1g Take [address] [facility] chloride 1 04-19- tablet (1 Patricia es gram tablet 00:00: 00:00 g total) M edical 00 :00 by mouth 3 Center (three) times daily with meals. polyethylen 2021-0 2021- No 17g Take [address] [facility] e glycol 04-18 by mouth [facility] (GLYCOLAX) 00:00: 23:59 daily as Me dical 17 gram 00 :00 needed Center packet (Constipat ion) for up to 3 days. sodium 2021-0 2021- No 1300mg Q.5D Take [address] [facility] [address] bicarbonate 04-18- tablets Luke s 650 MG 00:00: 00:00 (1,300 mg Medic al tablet 00 :00 total) by Center mouth 2 (two) times daily for 90 days. Vital Signs Vital Name Observation Time Observation Value Comments Source Systolic blood 2022-08-22 21:36:00 156 mm[Hg] Univer sity of pressure [place] [facility] Diastolic blood 2022-08-22 21:36:00 93 mm[Hg] Unive rsity of pressure [place] [facility] Heart rate 2022-08-22 21:36:00 77 /min [facility] [place] [facility] Body temperature 2022-08-22 21:35:00 35.94 Linda [facility] ers[facility] [place] [facility] Respiratory rate 2022-08-22 21:35:00 18 /min [facility] ers[facility] [place] [facility] Body height 2022-08-22 21:35:00 177.8 cm [facility] [place] [facility] Body weight 2022-08-22 21:35:00 68.04 kg [facility] [place] [facility] BMI 2022-08-22 21:35:00 21.52 kg/m2 [facility] [place] [facility] Oxygen saturation in 2022-08-22 21:35:00 99 /min University of Arterial blood by [place] [employer] yazmin Pulse oximetry Branch Systolic blood 2022-06-13 18:18:00 134 mm[Hg] Univer sity of pressure [place] [facility] Diastolic blood 2022-06-13 18:18:00 81 mm[Hg] Unive rsity of pressure [place] [facility] Heart rate 2022-06-13 18:18:00 83 /min [facility] [place] [facility] Body temperature 2022-06-13 18:18:00 36.44 Linda [facility] [place] [facility] Respiratory rate 2022-06-13 18:18:00 18 /min Univ [facility] [place] [facility] Body height 2022-06-13 18:18:00 177.8 cm [facility] [place] [facility] Body weight 2022-06-13 18:18:00 63.504 kg [facility] [place] [facility] BMI 2022-06-13 18:18:00 20.09 kg/m2 [facility] [place] [facility] Oxygen saturation in 2022-06-13 18:18:00 100 /min University of Arterial blood by [address] yazmin Pulse oximetry Branch HEIGHT 2022-04-07 00:04:00 177.8 cm WEIGHT 2022-04-07 00:04:00 61.236 kg HEIGHT 2022-04-07 00:04:00 177.8 cm WEIGHT 2022-04-07 00:04:00 61.236 kg HEIGHT 2022-04-07 00:04:00 177.8 cm WEIGHT 2022-04-07 00:04:00 61.236 kg Systolic blood 2022-04-28 23:48:00 132 mm[Hg] [facility] Diastolic blood 2022-04-28 23:48:00 74 mm[Hg] [facility] Heart rate 2022-04-28 23:48:00 85 /min [facility] Body temperature 2022-04-28 23:48:00 37.56 Linda [facility] Respiratory rate 2022-04-28 23:48:00 16 /min [facility] Oxygen saturation in 2022-04-28 23:48:00 99 /min [facility] Arterial blood by Medical Ce nter Pulse oximetry Body height 2022-04-07 00:04:00 177.8 cm [facility] Body weight 2022-04-07 00:04:00 61.236 kg [facility] BMI 2022-04-07 00:04:00 19.37 kg/m2 [facility] Procedures Procedure Date / Time Performing Clinician Source Performed HOME HEALTH - OTHER 2022-08-31 06:01:00 [facility] Name Medical [facility] POCT URINALYSIS AUTO 2022-08-22 21:53:00 Brown Adame [facility] Medical Branch PATIENT QUESTIONNAIRE 2022-08-22 06:01:00 Doctor Dede [facility] [place] [facility] HOME HEALTH - OTHER 2022-08-11 06:01:00 [facility] Name Medical Branch [facility] [id number] 2022-07-02 05:01:[address] [facility] [place] [facility] CONSENT/REFUSAL FOR 2022-06-13 17:45:35 [facility] [place] DIAGNOSIS AND TREATMENT [place] [facility] SARS-COV2/RT-PCR ([facility] & 2022-04-29 00:59:00 [facility] REF LABS) Center CBC W/PLT COUNT & AUTO 2022-04-29 00:57:00 [facility] DIFFERENTIAL Center CBC W/PLT COUNT & AUTO 2022-04-29 00:57:00 [facility] DIFFERENTIAL Center COMPREHENSIVE METABOLIC 2022-04-29 00:57:00 [facility] PANEL Center MAGNESIUM 2022-04-29 00:57:00 [facility] PROTHROMBIN TIME/INR 2022-04-29 00:57:00 [facility] PT/APTT 2022-04-29 00:57:00 [facility] TYPE AND SCREEN, 2022-04-29 00:57:00 [facility] AUTOMATED Center US RENAL COMPLETE 2022-04-20 09:30:00 Dorita Feldman [facility] BASIC METABOLIC PANEL 2022-04-20 04:29:00 Dorita Feldman [facility] LIMITED 2D ECHOCARDIOGRAM 2022-04-19 15:04:14 Dorita Feldman [facility] CORTISOL 2022-04-19 03:28:00 Dorita Feldman [facility] PROTEIN ELECTROPHORESIS, 2022-04-18 20:29:[address] [facility] KAPPA / LAMBDA LIGHT 2022-04-18 20:29:00 Dorita Feldman [facility], SERUM Center MISCELLANEOUS LAB ORDER 2022-04-18 19:32:00 Brandi Rosales [facility] CONT WAVE PULSED DOPPLER 2022-04-18 18:41:46 Dorita Feldman [facility] OSMOLALITY, SERUM 2022-04-18 10:38:00 Dorita Feldman [facility] CHLORIDE, RANDOM URINE 2022-04-18 10:32:00 [place] SODIUM, RANDOM URINE 2022-04-18 10:32:00 [facility] OSMOLALITY, URINE 2022-04-18 10:32:00 Gaston [facility] CBC W/PLT COUNT & AUTO 2022-04-18 04:40:00 [facility] CALCIUM, IONIZED 2022-04-18 04:40:[address] [facility] [place] [place] COMPREHENSIVE METABOLIC 2022-04-18 04:40:00 [facility] MAGNESIUM 2022-04-18 04:40:00 [facility] [place] [facility] PHOSPHORUS 2022-04-18 04:40:00 [facility] [place] [facility] CBC W/PLT COUNT & AUTO 2022-04-18 04:40:00 [facility] BLOOD GAS, VENOUS 2022-04-18 04:40:00 [facility] SARS-COV2/RT-PCR ([facility] & 2022-04-17 16:59:[address] [facility] REF LABS) [facility] SODIUM, RANDOM URINE 2022-04-17 05:49:00 Gaston [facility] CHLORIDE, RANDOM URINE 2022-04-17 05:49:00 [place] [facility] OSMOLALITY, URINE 2022-04-17 05:49:00 Gaston [facility] CBC W/PLT COUNT & AUTO 2022-04-17 04:56:00 [facility] CALCIUM, IONIZED 2022-04-17 04:56:[address] [facility] [place] [place] COMPREHENSIVE METABOLIC 2022-04-17 04:56:00 [facility] MAGNESIUM 2022-04-17 04:56:00 Cunha, [facility] PHOSPHORUS 2022-04-17 04:56:00 [facility] CBC W/PLT COUNT & AUTO 2022-04-17 04:56:00 [facility] CBC W/PLT COUNT & AUTO 2022-04-16 04:49:00 Gaston Doritahannah Marie [facility] CBC W/PLT COUNT & AUTO 2022-04-16 04:49:00 Dorita Feldman [facility] BASIC METABOLIC PANEL 2022-04-16 04:49:00 Dorita Feldman [facility] CORTISOL 2022-04-16 04:49:00 [place] [facility] BASIC METABOLIC PANEL 2022-04-15 04:47:00 Dorita Feldman [facility] SODIUM 2022-04-14 18:31:00 [place]aston Dorita [facility] SARS-COV2/RT-PCR ([facility] & 2022-04-14 18:24:[address] [facility] REF LABS) [facility] ALPHA FETOPROTEIN (AFP), 2022-04-14 14:13:00 [facility] TUMOR MARKER [facility] CARBOHYDRATE ANTIGEN 19-9 2022-04-14 14:13:00 Jeff Wray [facility] ([place] 19-9) [facility] URINE CULTURE 2022-04-13 23:59:00 Dorita Feldman [facility] URINALYSIS W/ REFLEX 2022-04-13 23:59:00 [facility] URINE CULTURE Center CT ABDOMEN/PELVIS WITH IV 2022-04-13 14:45:00 GadcorneliuserBrandi pena [facility] CONTRAST [facility] CBC W/PLT COUNT & AUTO 2022-04-13 03:37:00 Dorita Feldman [facility] COMPREHENSIVE METABOLIC 2022-04-13 03:37:00 GastonDorita [facility] Center CBC W/PLT COUNT & AUTO 2022-04-13 03:37:00 Dorita Feldman [facility] CYTOLOGY 2022-04-12 17:05:00 Marcus Mcnally [facility] PSA 2022-04-12 10:56:00 [facility]adicherla, [facility] BASIC METABOLIC PANEL 2022-04-12 04:12:00 Dorita Feldman [facility] BASIC METABOLIC PANEL 2022-04-11 22:25:00 Dorita Feldman [facility] SODIUM, RANDOM URINE 2022-04-11 22:19:00 Dorita Feldman [facility] OSMOLALITY, URINE 2022-04-11 22:18:00 Dorita Feldman [facility] CBC W/PLT COUNT & AUTO 2022-04-10 05:41:00 Be Miller [facility] CBC W/PLT COUNT & AUTO 2022-04-10 05:41:00 Be Miller [facility] BASIC METABOLIC PANEL 2022-04-10 05:40:00 Be Miller [facility] CT ABDOMEN/PELVIS WITHOUT 2022-04-09 11:45:00 [facility] URINALYSIS W/ MICROSCOPIC 2022-04-08 21:46:00 Dorita Feldman [facility] US DRAINAGE WITH CATH 2022-04-08 17:56:00 Gadicherri, [facility] PLACEMENT [facility] CYTOLOGY 2022-04-08 17:32:00 Gadicherri, [facility] CBC W/PLT COUNT & AUTO 2022-04-08 04:31:00 Dorita Feldman [facility] IRON, TIBC, % SAT. 2022-04-08 04:31:00 Dorita Feldman [facility] (WITHOUT FERRITIN) Center FERRITIN 2022-04-08 04:31:00 GastonDoritapercyyun [facility] COMPREHENSIVE METABOLIC 2022-04-08 04:31:00 G[facility] PANEL Center CBC W/PLT COUNT & AUTO 2022-04-08 04:31:00 [facility] US RENAL COMPLETE 2022-04-08 00:52:00 Jaime Vazquez [facility] CBC W/PLT COUNT & AUTO 2022-04-07 04:22:00 Juancarlos Magana [facility] BASIC METABOLIC PANEL 2022-04-07 04:22:00 Juancarlos Magana [facility] HEPATIC FUNCTION PANEL 2022-04-07 04:22:00 Juancarlos Magana [facility] MAGNESIUM 2022-04-07 04:22:00 Juancarlos Magana [facility] PHOSPHORUS 2022-04-07 04:22:00 Juancarlos Magana [facility] PROTHROMBIN TIME/INR 2022-04-07 04:22:00 Juancarlos Magana [facility] CBC W/PLT COUNT & AUTO 2022-04-07 04:22:00 Juancarlos Magana [facility] DIFFERENTIAL Center TYPE AND SCREEN, 2022-04-07 04:22:00 Juancarlos Magana [facility] AUTOMATED Center Plan of Care Planned Activity Planned Date Details Comments Source Future Scheduled 2023-04-[address] [facility] Test 00:00:00 Counseling and Medical Cente r Screening (12+) [code = Tobacco Cessation Counseling and Screening (12+)] Future Scheduled 2022-05-12 INFLUENZA VACCINE (#1) [facility] 00:00:00 [code = INFLUENZA Medical Ce nter VACCINE (#1)] Future Scheduled 2021-09-[address] [facility] Test 00:00:00 (12+) [code = Medical Center DEPRESSION SCREENING (12+)] Future Scheduled 2021-09-11 FALLS RISK SCREENING [facility] Test 00:00:00 [code = FALLS RISK Medical C enter SCREENING] Future Scheduled 2004-01-05 SHINGLES VACCINES ([address] [facility] Test 00:00:00 2) [code = SHINGLES Medical Center VACCINES (1 of 2)] Future Scheduled 1973 DTAP/TDAP/TD VACCINES [facility] 00:00:00 (1 - Tdap) [code = Medical C enter DTAP/TDAP/TD VACCINES (1 - Tdap)] Future Scheduled 1972-01-05 HEPATITIS C SCREENING [facility] 00:00:00 [code = HEPATITIS C Medical Center SCREENING] Future Scheduled 1960-01-05 PNEUMOCOCCAL 65+ YRS ([address] [facility] Test 00:00:00 - PCV) [code = Medical Cente r PNEUMOCOCCAL 65+ YRS (1 - PCV)] Future Scheduled 1954 COVID-19 VACCINE (#1) [facility] 00:00:00 [code = COVID-[address] VACCINE (#1)] Future Scheduled 1954 CT Colonography (combo) [facility] Test 00:00:00 [code = CT Colonography [facility] (combo)] Future Scheduled 1954 Screening for malignant [facility] Test 00:00:00 neoplasm of colon Medical Ce nter (procedure) [code = 206232280] Future Scheduled 1954 Screening for malignant [facility] Test 00:00:00 neoplasm of colon Medical Ce nter (procedure) [code = 780478470] Future Scheduled 1954 Screening for malignant [facility] Test 00:00:00 neoplasm of colon Medical Ce nter (procedure) [code = 014866418] Future Scheduled 1954 Screening for malignant [facility] Test 00:00:00 neoplasm of colon Medical Ce nter (procedure) [code = 571319820] Future Scheduled 1954 Sigmoidoscopy [code = [facility] 00:[facility]:00 Sigmoidoscopy] Medical Cente r Encounters Start End Encounter Admission Attending Care Care Encounter Source Date/Time Date/Time Type Type Clinicians Facility Department ID 2022-09-14 2022-09-14 Outpatient R KELLEY RIVERA [facility] [id number] [facility] 11:30:00 11:30:00 KELLEY RIVERA ity of [facility] 2022-09-01 2022-09-01 Letter [facility] [id number] Univers 00:00:00 00:00:00 (Out) [facility] SPECIALTY [id number] ity of Gastroenter CARE [id number] [facility] AT [phone] Ma dical VICTORY 072 [facility] 2022-08-31 2022-08-31 Orders Doctor ROXANN [id number] Univers 00:00:00 00:00:00 Only Unassigned, TAI [id number] ity of [place] [facility] [id number] Omar as [id number] [address] 2022-08-22 2022-08-22 [facility] [id number] Univers 15:30:00 16:00:00 Visit Brown HEBERT [id number] i ty [id number] [id number] Ma dicaime [facility] [address] [facility] 2022-08-22 2022-08-22 Outpatient R BILLY [facility] [id number] Univers 15:30:00 15:30:00 [facility] ity [facility] 2022-08-22 2022-08-22 Orders Doctor HACKETT [id number] Univers 00:00:00 00:00:00 Only Unassigned, TAI [id number] ity of [place] [facility] [id number] Omar as [id number] [facility] yazmin 009 [facility] 2022-08-11 2022-08-11 Orders Doctor HACKETT [id number] Univers 00:00:00 00:00:00 Only Unassigned, TAI [id number] ity of [place] [facility] [id number] Omar as [phone] [facility] [facility] yazmin [address] [facility] 2022-07-02 2022-07-02 Orders Doctor HACKETT 1.2.840.114 [id number] Univers 00:00:00 00:00:00 Only Unassigned, TAI 350.1.13.10 ity of [place] [facility] 4.2.7.2.686 Omar as [phone] [address] 2022-07-01 2022-07-01 [facility]phone [facility] 1.2.840.114 [id number] Univers 00:00:00 00:00:00 Ognielserasto ANUP 350.1.13.10 ity of [facility] [place] [phone] Ma dical NAL 044 [facility] 2022-06-22 2022-06-22 [facility]phone [facility] 1.2.840.114 [id number] Univers 00:00:00 00:00:00 Kelley HEBERT 350.1.13.10 ity of [facility] [place] [phone] Ma dical NAL 044 [facility] 2022-06-17 2022-06-17 Cleaning Custodian Rika, Adc Lab Main [facility] 1.2.8 40.114 [id number] Univers 13:30:00 13:45:00 Visit Kelley Rivera 350.1.13.1 0 ity of [place] [phone] Ma dical NAL 353 [facility] 2022-06-17 2022-06-17 Outpatient R KELLEY RIVERA [facility] [id number] Univers 13:30:00 13:30:00 KELLEY RIVERA ity [facility] 2022-06-17 2022-06-17 Outpatient R KELLEY RIVERA [facility] [id number] Univers 13:15:00 13:15:00 KELLEY RIVERA ity [facility] 2022-06-17 2022-06-17 [facility]phone [facility] 1.2.840.114 [id number] Univers 00:00:00 00:00:00 Kelley HEBERT 350.1.13.10 ity of [facility] 4.2.[place] [phone] Ma dical NAL 231 [facility] 2022-06-16 2022-06-16 Telephone Khang [facility] 1.2.840.114 [id number] Univers 00:00:00 00:00:00 Kelley HEBERT 350.1.13.10 ity of [facility] 4.2.7.2.[place] [phone] Ma dical NAL 044 [facility] 2022-06-13 2022-06-13 Outpatient R KELLEY RIVERA [facility] [id number] Univers 13:00:00 14:32:00 KELLEY RIVERA ity of [facility] 2022-06-13 2022-06-13 Office Khang [facility] 1.2.840.114 [id number] Univers 13:00:00 14:32:00 Visit Kelley HEBERT 350.1.13.10 ity of [place] [phone] Ma dical NAL 044 [facility] 2022-06-13 2022-06-13 Patient Jeffrey [facility] 1.2.840.114 [id number] Univers 00:00:00 00:00:00 Outreach Juancarlos Sandro HEBERT 350.1.13.10 ity of [facility] 4.2.7.2.[place] [phone] Ma dical [facility] 044 [facility] 2022-06-13 2022-06-13 Orders Doctor ROXANN 1.2.840.114 [id number] Univers 00:00:00 00:00:00 Only Unassigned, TAI 350.1.13.10 ity of [place] [facility] 4.2.7.2.686 Omar as [phone] [address] 2022-04-28 2022-04-29 Emergency [facility] [id number] [facility] 23:57:00 04:25:00 KALEB 2022-04-28 2022-04-29 Emergency Alondra [facility] [id number] [facility] 23:57:00 04:25:00 [facility] 2022-04-06 2022-04-20 Inpatient UR MELL ROSALES [facility] [id number] [facility] 23:57:00 13:42:00 BRANDI 2022-04-06 2022-04-20 [facility] Latha Mcdonald [facility] [id number] [facility] 23:57:00 13:42:00 Encounter Brandi Rosales [facility] Results Test Description Test Time Test Comments Results Result Comments Source POCT URINALYSIS, INSTRUMENT 2022-08-22 21:55:00 Test Item Value Reference Range Interpretation Comme nts POCT U SP GRAV (test code = 3255) 1.010 mg/dl 1.005-1.025 POCT PH U (test code = 3254) 6.0 mg/dl 5-8 POCT U LEUK EST (test code = 3263) large Negative - Negative POCT U NIT (test code = 3262) negative Negative - Negative POCT U PROT (test code = 3259) Negative - Negative POCT U GLU (test code = 3256) Negative - Negative POCT U KETONE (test code = 3258) negative Negative - Negative POCT U UROBILI (test code = 3260) 0.2 mg/dl 0.2-1 POCT U BILI (test code = 3261) negative Negative - Negative POCT U BLD (test code = 3257) small Negative - Negative POCT U COLOR (test code = 3266) yellow POCT U APPEAR (test code = 3267) clear [facility] [id number] 21:55:00 Test Item Value Reference Range Interpretation Comments POCT U SP GRAV (test code = 1.010 mg/dl 1.005-1.025 3255) POCT PH U (test code = 3254) 6.0 mg/dl 5-8 POCT U LEUK EST (test code = large Negative - Negative 3263) POCT U NIT (test code = 3262) negative Negative - Negative POCT U PROT (test code = Negative - Negative 3259) POCT U GLU (test code = 3256) Negative - Negative POCT U KETONE (test code = negative Negative - Negative 3258) POCT U UROBILI (test code = 0.2 mg/dl 0.2-1 3260) POCT U BILI (test code = negative Negative - Negative 3261) POCT U BLD (test code = 3257) small Negative - Negative POCT U COLOR (test code = yellow 3266) POCT U APPEAR (test code = clear 3267) [facility], SERUM WITH REFLEX TO [id number] 15:26:00 Test Item Value Reference Range Interpretation Comments ALBUMIN FRACTION 2.5 gm/dL 3.5-5.5 L (BEAKER) (test code = 405) ALPHA 1 FRACTION 0.5 gm/dL 0.2-0.4 H (BEAKER) (test code = 389) ALPHA 2 FRACTION 0.7 gm/dL 0.4-1.0 (BEAKER) (test code = 390) BETA FRACTION 0.7 gm/dL 0.5-1.1 (BEAKER) (test code = 392) GAMMA GLOBULIN 1.0 gm/dL 0.7-1.6 FRACTION (BEAKER) (test code = 391) INTERPRETATION-119 Total protein and albumin (BEAKER) (test code are decreased while the = 2615) relative concentrations of alpha globulins are increased suggesting an acute phase response to infection, inflammation or tissue injury. [id number] Gigi Camarillo M.D. (BEAKER) (test code = 2616) PROTEIN TOTAL SERUM, 5.5 gm/dL 6.0-8.3 L SPEP (BEAKER) (test code = 6860) Bag Grader ID - BSOperator ID - ADMSARS-CoV2/RT-PCR (Asymptomatic ONLY)2022-04-29 02:43:05 Test Item Value Reference Interpretation Comments Range SARS-COV2/RT-PCR Negative Negative The SARS-Co V-2 (test code = target nucleic 66338-6) acids are not detected in thi s specimen. Negat jimmie results do not preclude SARS-C oV-2 infection and should not be u sed as the sole bas is for patient management decisions. Nega tive results must be combined with clinical observations, patient history , and epidemiolog ical information. A false negative result may occu r if a specimen is improperly collected, transported or handled. This S ARS CoV-2 test is a rapid, real-linda e RT-PCR test intended for th e qualitative detection of nucleic acid fr om SARS-CoV-2 in a nasopharyngeal swab specimen collec louise from individual s suspected of COVID-19 by the ir healthcare provider. DILIP (test code = This test has been DILIP) authorized by FDA under an EUA for use by authorized laboratories. This test is only authorized for the duration of the declaration that circumstances exist justifying the authorization of emergency use of in vitro diagnostic tests for detection and/or diagnosis of COVID-19 under Section 564(b)(1) of the Federal Food, Drug and Cosmetic Act, 21 U.S.C. 360bbb-3(b)(1), unless the authorization is terminated or revoked sooner. Fact Sheet for Healthcare Providers: https://www.Memonic/Documents/Xp ert%20Xpress%20SAR S%20CoV-2/Fact%20S heets/302-3802%20S ARS-COV-2%20HEALTH CARE%20PROVIDERS%2 0FACT%20SHEET.pdf Fact Sheet for Healthcare Patients: https://www.Memonic/Documents/Xp ert%20Xpress%20SAR S%20CoV-2/Fact%20S heets/302-3801%20S ARS-COV-2%20PATIEN T%20FACT%20SHEET.p df Lab Interpretation Normal (test code = 94987-1) [facility]2022-04-29 02:43:05 Test Item Value Reference Range Interpretation Comments SARS-COV2/RT-PCR Negative Negative The SARS-Co V-2 target (test code = nucleic acids a re not 4943028) detected in thi s specimen. Negative result s do not preclude SARS-C oV-2 infection and s hould not be used as the onel e basis for patient managem ent decisions. Nega tive results must be combine d with clinical observ ations, patient history , and epidemiological information. A false negativ e result may occur if a spec imen is improperly gonzález ected, transported or handled. This SARS CoV-2 test is a rapid, real-time RT-PC R test intended for th e qualitative detection of nu cleic acid from SARS-CoV-2 in a nasopharyngeal swab specimen collected from individuals suspected of CO VID-19 by their healthcar e provider. This test has been authorized by FDA under an EUA for use by authorized laboratories. This test is only authorized for the duration of the declaration that circumstances exist justifying the authorization of emergency use of in vitro diagnostic tests for detection and/or diagnosis of COVID-19 under Section 564(b)(1) of the Federal Food, Drug and Cosmetic Act, 21 U.S.C. 360bbb-3(b)(1), unless the authorization is terminated or revoked sooner. Fact Sheet for Healthcare Providers: https://Dataminr.Startist/Documents/Xpert%20Xpress%20SARS%20CoV-2/Fact%20Sheets/302-3802%23FMJB-NSX-0%20 HEALTHCARE%20PROVIDERS%20FACT%20SHEET.pdf Fact Sheet for Healthcare Patients: https://www.[employer] Engineering/Documents/Xpert%20Xp ress%20SARS%20CoV-2/Fact%20Sheets/3023801%56PDOH-XSE-8%20PATIENT%20FACT%20SHEET .pdfCOMPREHENSIVE METABOLIC [id number] 01:47:21 Test Item Value Reference Range Interpretation Comments TOTAL PROTEIN 6.9 gm/dL 6.0-8.3 (BEAKER) (test code = 770) ALBUMIN (BEAKER) 3.0 g/dL 3.5-5.0 L (test code = 1145) ALKALINE 222 U/L 40-150 H PHOSPHATASE (BEAKER) (test code = 346) BILIRUBIN TOTAL 0.4 mg/dL 0.2-1.2 (BEAKER) (test code = 377) SODIUM (BEAKER) 128 meq/L 136-145 L (test code = 381) POTASSIUM (BEAKER) 4.6 meq/L 3.5-5.1 (test code = 379) CHLORIDE (BEAKER) 104 meq/L 98-107 (test code = 382) CO2 (BEAKER) (test 17 meq/L 22-29 L code = 355) BLOOD UREA 60 mg/dL 7-21 H NITROGEN (BEAKER) (test code = 354) CREATININE 3.76 mg/dL 0.57-1.25 H (BEAKER) (test code = 358) GLUCOSE RANDOM 94 mg/dL 70-105 (BEAKER) (test code = 652) CALCIUM (BEAKER) 10.3 mg/dL 8.4-10.2 H (test code = 697) AST (SGOT) 13 U/L 5-34 (BEAKER) (test code = 353) ALT (SGPT) 12 U/L 6-55 (BEAKER) (test code = 347) EGFR (BEAKER) 17 Interpretatio n of eGFR (test code = 1092) mL/min/1.[address] age Description sq m Result G1 Iva l or high >=90 G2 Mildly decreased 60-89 G3a Mildl y to moderately 45-5 9 G3b Moderately to s everely 30-44 G4 Severl y decreased 15-29 G5 Kidney failure <15Reported eGF R is based on the CKD-EPI 2020 equation that d oes not use a race coefficientEsti mated GFR is not as accur ate as Creatinine Gemma angela in predicting glom erular filtration rate . Estimated GFR is not appl icable for dialysis patien ts Bag Grader ID - PIKRZYSZTOF [id number] 01:37:34 Test Item Value Reference Range Interpretation Comments MAGNESIUM (BEAKER) (test code = 1.9 mg/dL 1.6-2.6 627) Bag Grader ID - JEWELL LPT/[id number] 01:29:35 Test Item Value Reference Range Interpretation Comments PROTIME (BEAKER) (test 16.3 seconds 11.9-14.2 H code = 759) INR (BEAKER) (test 1.40 See_Comment [Automat ed code = 370) message] The sy stem which generated this result transmitted reference range : <=5.90. The reference range was not used to interpret this result as normal/abnormal . PARTIAL THROMBOPLASTIN 41.5 seconds 22.5-36.0 H TIME (BEAKER) (test code = 760) RECOMMENDED COUMADIN/WARFARIN INR THERAPY RANGESSTANDARD DOSE: 2.0 - 3.0 Includes: PROPHYLAXIS for venous thrombosis, systemic embolization; TREATMENT for venous thrombosis and/or pulmonary embolus.HIGH RISK: Target INR is 2.5-3.5 for patients with mechanical heart valves.PROTHROMBIN TIME/[id number] 01:28:54 Test Item Value Reference Range Interpretation Comments PROTIME (BEAKER) 16.3 seconds 11.9-14.2 H (test code = 759) INR (BEAKER) (test 1.40 See_Comment [Automat ed message] code = 370) The system Teralynk generated this result transmitted ref erence range: <=5.90. The reference range was not used to int erpret this result as normal/abnormal . RECOMMENDED COUMADIN/WARFARIN INR THERAPY RANGESSTANDARD DOSE: 2.0 - 3.0 Includes: PROPHYLAXIS for venous thrombosis, systemic embolization; TREATMENT for venous thrombosis and/or pulmonary embolus.HIGH RISK: Target INR is 2.5-3.5 for patients with mechanical heart valves.CBC W/PLT COUNT & AUTO [id number] 01:15:14 Test Item Value Reference Range Interpretation Comments WHITE BLOOD CELL COUNT (BEAKER) 9.0 K/ L 3.5-10.5 (test code = 775) RED BLOOD CELL COUNT (BEAKER) 2.96 M/ L 4.63-6.08 L (test code = 761) HEMOGLOBIN (BEAKER) (test code = 7.8 GM/DL 13.7-17.5 L 410) HEMATOCRIT (BEAKER) (test code = 24.4 % 40.1-51.0 L 411) MEAN CORPUSCULAR VOLUME (BEAKER) 82.4 fL 79.0-92.2 (test code = 753) MEAN CORPUSCULAR HEMOGLOBIN 26.4 pg 25.7-32.2 (BEAKER) (test code = 751) MEAN CORPUSCULAR HEMOGLOBIN CONC 32.0 GM/DL 32.3-36.5 L (BEAKER) (test code = 752) RED CELL DISTRIBUTION WIDTH 16.3 % 11.6-14.4 H (BEAKER) (test code = 412) PLATELET COUNT (BEAKER) (test 463 K/CU MM 150-450 H code = 756) MEAN PLATELET VOLUME (BEAKER) 8.9 fL 9.4-12.4 L (test code = 754) NUCLEATED RED BLOOD CELLS 0 /100 WBC 0-0 (BEAKER) (test code = 413) NEUTROPHILS RELATIVE PERCENT 75 % (BEAKER) (test code = 429) LYMPHOCYTES RELATIVE PERCENT 8 % (BEAKER) (test code = 430) MONOCYTES RELATIVE PERCENT 9 % (BEAKER) (test code = 431) EOSINOPHILS RELATIVE PERCENT 6 % (BEAKER) (test code = 432) BASOPHILS RELATIVE PERCENT 1 % (BEAKER) (test code = 437) NEUTROPHILS ABSOLUTE COUNT 6.72 K/ L 1.78-5.38 H (BEAKER) (test code = 670) LYMPHOCYTES ABSOLUTE COUNT 0.72 K/ L 1.32-3.57 L (BEAKER) (test code = 414) MONOCYTES ABSOLUTE COUNT (BEAKER) 0.78 K/ L 0.30-0.82 (test code = 415) EOSINOPHILS ABSOLUTE COUNT 0.55 K/ L 0.04-0.54 H (BEAKER) (test code = 416) BASOPHILS ABSOLUTE COUNT (BEAKER) 0.10 K/ L 0.01-0.08 H (test code = 417) IMMATURE GRANULOCYTES-RELATIVE 1 % 0-1 PERCENT (BEAKER) (test code = 2801) [id number] 13:48:54 Test Item Value Reference Range Interpretation Comments Scan Result (test code = See Scanned Report [id number]) [facility] [id number] 13:48:54 Test Item Value Reference Range Interpretation Comments SCAN RESULT (test code = See Scanned Report [id number]) U/S, RENAL, [id number] 11:13:00Reason for exam:->[facility] : 1955 Sex: MFINAL REPORT U/S, RENAL, COMPLETE CLINICAL HISTORY: LETY COMPARISON: CT abdomen pelvis 04/13/2022 TECHNIQUE: Real time grayscale and color Doppler imaging of the kidneys and urinary bladder was performed. FINDINGS: Right kidney:Length = 10.1 cmCortical thickness: NormalEchogenicity: Mildly increasedCollecting system: No hydronephrosisOther findings: None Left kidney:Length = 10.1 cmCorti yazmin thickness: NormalEchogenicity: NormalCollecting system: Mild hydronephrosisOther findings: Nonobstructive 6 mm calculus in the interpolar region Urinary bladder: Decompressed with a Ordaz catheter and circumferentially thick-walled. Other: A heterogeneous multiseptated collection in the right mid a bdomen inferior to the right lobe of the liver measures approximately 14.6 x 14.4 x 10.4 cm, mostly solid-appearing with a small liquid component. IMPRESSION: 1.Mild residual left hydronephrosis. 2.A nonobstructive 6 mm left renal calculus. 3.A heterogeneous multiseptated collection in the right mid ab domen measures approximately 14.6 cm; solid component likely representing clot or debris. Signed: Coby Bull MDReport Verified Date/Time: 04/20/2022 11:13:05 BASIC METABOLIC [id number] 06:10:50 Test Item Value Reference Range Interpretation Comments SODIUM (BEAKER) 136 meq/L 136-145 (test code = 381) POTASSIUM 4.6 meq/L 3.5-5.1 (BEAKER) (test code = 379) CHLORIDE (BEAKER) 105 meq/L 98-107 (test code = 382) CO2 (BEAKER) 23 meq/L 22-29 (test code = 355) BLOOD UREA 50 mg/dL 7-21 H NITROGEN (BEAKER) (test code = 354) CREATININE 3.11 mg/dL 0.57-1.25 H (BEAKER) (test code = 358) GLUCOSE RANDOM 79 mg/dL 70-105 (BEAKER) (test code = 652) CALCIUM (BEAKER) 10.1 mg/dL 8.4-10.2 (test code = 697) EGFR (BEAKER) 21 Interpretatio n of eGFR (test code = mL/min/1.73 values Stage De scription 1092) sq m Result G1 Iva l or high >=90 G2 Mildly decreased 60-89 G3a Mildl y to moderately 45-5 9 G3b Moderately to s everely 30-44 G4 Severl y decreased 15-29 G5 Kidney failure <15Reported eGF R is based on the CKD-EPI 2020 equation that d oes not use a race coefficientEsti mated GFR is not as accur ate as Creatinine Gemma angela in predicting glom erular filtration rate . Estimated GFR is not appl icable for dialysis patien ts Bag Grader ID - ALECIA MLimited 2D [id number] 17:56:18Ejection FractionSLEH ECHO HEARTLAB MKCKESSON CPACSCHI [facility] 2022-04-19 04:58:49 Test Item Value Reference Range Interpretation Comments CORTISOL, TOTAL (BEAKER) (test code 5.2 ug/dL 3.7-19.4 = 2755) Bag Grader ID - JEWELL Ramasharifa, [id number] 13:02:59 Test Item Value Reference Range Interpretation Comments Osmolality, Ur (test code 125 See_Comment [ Automated message] = 2695-5) The system Teralynk generated this result transmitted ref erence range: 50-1,200 mOsm/kg mOsm/kg . The reference range was not used to int erpret this result as normal/abnormal . Lab Interpretation (test Normal code = 94089-8) [facility] Center[facility]MOLALITY, [id number] 13:02:59 Test Item Value Reference Range Interpretation Comments OSMOLALITY URINE 125 mOsm/kg See_Comment [Automated message] (BEAKER) (test code = The sy stem which 614) generated this result transmitted ref erence range: 50-1,200 mOsm/kg. The reference range was not used to int erpret this result as normal/abnormal . Sodium, random [id number] 12:21:46 Test Item Value Reference Range Interpretation Comments Sodium Urine (test 23 meq/L code = 2955-3) DILIP (test code = Reference Range: No DILIP) NormalsOperator ID - MO [facility], RANDOM [id number] 12:21:46 Test Item Value Reference Range Interpretation Comments SODIUM URINE (BEAKER) (test code = 23 meq/L 243) Reference Range: No NormalsOperator ID - MOChloride, random [id number] 12:15:03 Test Item Value Reference Range Interpretation Comments Chloride, Urine 23 meq/L (test code = 58962-3) DILIP (test code = Reference Range: No DILIP) NormalsOperator ID - MO [facility] HospitalCHLOR[facility], RANDOM [id number] 12:15:03 Test Item Value Reference Range Interpretation Comments CHLORIDE URINE (BEAKER) (test code = 23 meq/L 682) Reference Range: No NormalsOperator ID - MOOSMOLALITY, [id number] 11:38:18 Test Item Value Reference Range Interpretation Comments OSMOLALITY, SERUM (BEAKER) (test 285 mOsm/kg 275-295 code = 615) SARS-COV2/RT-PCR ([facility])2022-04-18 07:40:10 Test Item Value Reference Range Interpretation Comments SARS-COV2/RT-PCR Negative Negative The SARS-Co V-2 target (test code = nucleic acids a re not 9375224) detected in thi s specimen. Negative result s do not preclude SARS-C oV-2 infection and s hould not be used as the onel e basis for patient managem ent decisions. Nega tive results must be combine d with clinical observ ations, patient history , and epidemiological information. A false negativ e result may occur if a spec imen is improperly gonzález ected, transported or handled. This SARS CoV-2 test is a rapid, real-time RT-PC R test intended for th e qualitative detection of nu cleic acid from SARS-CoV-2 in a nasopharyngeal swab specimen collected from individuals suspected of CO VID-19 by their healthcar e provider. This test has been authorized by FDA under an EUA for use by authorized laboratories. This test is only authorized for the duration of the declaration that circumstances exist justifying the authorization of emergency use of in vitro diagnostic tests for detection and/or diagnosis of COVID-19 under Section 564(b)(1) of the Federal Food, Drug and Cosmetic Act, 21 U.S.C. 360bbb-3(b)(1), unless the authorization is terminated or revoked sooner. Fact Sheet for Healthcare Providers: https://www.Behance m/Documents/Xpert%20Xpress%20SARS%20CoV-2/Fact%20Sheets/302-3802%56QXRB-TWI-3%20 HEALTHCARE%20PROVIDERS%20FACT%20SHEET.pdf Fact Sheet for Healthcare Patients: https://www.[employer]/Documents/Xpert%20Xp ress%20SARS%20CoV-2/Fact%20Sheets/302-3801%25TZJJ-DVY-3%20PATIENT%20FACT%20SHEET .pdfCOMPREHENSIVE METABOLIC [id number] 06:37:57 Test Item Value Reference Range Interpretation Comments TOTAL PROTEIN 6.4 gm/dL 6.0-8.3 (BEAKER) (test code = 770) ALBUMIN (BEAKER) 2.8 g/dL 3.5-5.0 L (test code = 1145) ALKALINE 210 U/L 40-150 H PHOSPHATASE (BEAKER) (test code = 346) BILIRUBIN TOTAL 0.3 mg/dL 0.2-1.2 (BEAKER) (test code = 377) SODIUM (BEAKER) 128 meq/L 136-145 L (test code = 381) POTASSIUM (BEAKER) 4.3 meq/L 3.5-5.1 (test code = 379) CHLORIDE (BEAKER) 99 meq/L 98-107 (test code = 382) CO2 (BEAKER) (test 21 meq/L 22-29 L code = 355) BLOOD UREA 51 mg/dL 7-21 H NITROGEN (BEAKER) (test code = 354) CREATININE 3.18 mg/dL 0.57-1.25 H (BEAKER) (test code = 358) GLUCOSE RANDOM 79 mg/dL 70-105 (BEAKER) (test code = 652) CALCIUM (BEAKER) 9.5 mg/dL 8.4-10.2 (test code = 697) AST (SGOT) 21 U/L 5-34 (BEAKER) (test code = 353) ALT (SGPT) 14 U/L 6-55 (BEAKER) (test code = 347) EGFR (BEAKER) 21 Interpretatio n of eGFR (test code = 1092) mL/min/1.[address] age Description sq m Result G1 Iva l or high >=90 G2 Mildly decreased 60-89 G3a Mildl y to moderately 45-5 9 G3b Moderately to s everely 30-44 G4 Severl y decreased 15-29 G5 Kidney failure <15Reported eGF R is based on the CKD-EPI 2020 equation that d oes not use a race coefficientEsti mated GFR is not as accur ate as Creatinine Gemma angela in predicting glom erular filtration rate . Estimated GFR is not appl icable for dialysis patien ts Bag Grader ID - JEWELL [id number] 06:28:56 Test Item Value Reference Range Interpretation Comments PHOSPHORUS (BEAKER) (test code = 4.6 mg/dL 2.3-4.7 604) Bag Grader ID - JEWELL [id number] 06:28:55 Test Item Value Reference Range Interpretation Comments MAGNESIUM (BEAKER) (test code = 1.9 mg/dL 1.6-2.6 627) Bag Grader ID Jojo CORCORAN LBLOOD GAS, [id number] 05:41:04 Test Item Value Reference Range Interpretation Comments PH VENOUS (BEAKER) (test code = 7.31 7.32-7.42 L 701) PCO2 VENOUS (BEAKER) (test code = 48 mm Hg 41-51 755) PO2 VENOUS (BEAKER) (test code = 24 mm Hg 25-40 L 702) O2 SATURATION VENOUS (BEAKER) 37.4 % 40.0-70.0 L (test code = 703) HCO3 VENOUS (BEAKER) (test code = 24 mmol/L 21-29 705) BASE EXCESS VENOUS (BEAKER) (test -2.5 mmol/L -2.0-3.0 L code = 704) PATIENT TEMPERATURE (BEAKER) 37.0 (test code = 1818) CALCIUM, [id number] 05:40:16 Test Item Value Reference Range Interpretation Comments CALCIUM IONIZED (BEAKER) (test 1.26 mmol/L 1.12-1.27 code = 698) PH, BLOOD (BEAKER) (test code = 7.31 1810) CBC W/PLT COUNT & AUTO [id number] 05:36:28 Test Item Value Reference Range Interpretation Comments WHITE BLOOD CELL COUNT (BEAKER) 6.5 K/ L 3.5-10.5 (test code = 775) RED BLOOD CELL COUNT (BEAKER) 3.16 M/ L 4.63-6.08 L (test code = 761) HEMOGLOBIN (BEAKER) (test code = 8.1 GM/DL 13.7-17.5 L 410) HEMATOCRIT (BEAKER) (test code = 26.4 % 40.1-51.0 L 411) MEAN CORPUSCULAR VOLUME (BEAKER) 83.5 fL 79.0-92.2 (test code = 753) MEAN CORPUSCULAR HEMOGLOBIN 25.6 pg 25.7-32.2 L (BEAKER) (test code = 751) MEAN CORPUSCULAR HEMOGLOBIN CONC 30.7 GM/DL 32.3-36.5 L (BEAKER) (test code = 752) RED CELL DISTRIBUTION WIDTH 15.9 % 11.6-14.4 H (BEAKER) (test code = 412) PLATELET COUNT (BEAKER) (test 431 K/CU MM 150-450 code = 756) MEAN PLATELET VOLUME (BEAKER) 9.1 fL 9.4-12.4 L (test code = 754) NUCLEATED RED BLOOD CELLS 0 /100 WBC 0-0 (BEAKER) (test code = 413) NEUTROPHILS RELATIVE PERCENT 60 % (BEAKER) (test code = 429) LYMPHOCYTES RELATIVE PERCENT 18 % (BEAKER) (test code = 430) MONOCYTES RELATIVE PERCENT 9 % (BEAKER) (test code = 431) EOSINOPHILS RELATIVE PERCENT 9 % (BEAKER) (test code = 432) BASOPHILS RELATIVE PERCENT 2 % (BEAKER) (test code = 437) NEUTROPHILS ABSOLUTE COUNT 3.92 K/ L 1.78-5.38 (BEAKER) (test code = 670) LYMPHOCYTES ABSOLUTE COUNT 1.17 K/ L 1.32-3.57 L (BEAKER) (test code = 414) MONOCYTES ABSOLUTE COUNT (BEAKER) 0.57 K/ L 0.30-0.82 (test code = 415) EOSINOPHILS ABSOLUTE COUNT 0.60 K/ L 0.04-0.54 H (BEAKER) (test code = 416) BASOPHILS ABSOLUTE COUNT (BEAKER) 0.11 K/ L 0.01-0.08 H (test code = 417) IMMATURE GRANULOCYTES-RELATIVE 2 % 0-1 H PERCENT (BEAKER) (test code = 2801) OSMOLALITY, [id number] 11:10:49 Test Item Value Reference Range Interpretation Comments OSMOLALITY URINE 138 mOsm/kg See_Comment [Automated message] (BEAKER) (test code = The sy stem which 614) generated this result transmitted ref erence range: 50-1,200 mOsm/kg. The reference range was not used to int erpret this result as normal/abnormal . CALCIUM, [id number] 08:10:56 Test Item Value Reference Range Interpretation Comments CALCIUM IONIZED (BEAKER) (test 1.25 mmol/L 1.12-1.27 code = 698) PH, BLOOD (BEAKER) (test code = 7.28 1810) SODIUM, RANDOM [id number] 06:43:18 Test Item Value Reference Range Interpretation Comments SODIUM URINE (BEAKER) (test code = 34 meq/L 243) Reference Range: No NormalsOperator ID - ALECIA MCHLORIDE, RANDOM [id number] 06:43:17 Test Item Value Reference Range Interpretation Comments CHLORIDE URINE (BEAKER) (test code = 36 meq/L 682) Reference Range: No NormalsOperator ID - ALECIA MCOMPREHENSIVE METABOLIC PANEL 2022-04-17 05:52:13 Test Item Value Reference Range Interpretation Comments TOTAL PROTEIN 6.2 gm/dL 6.0-8.3 (BEAKER) (test code = 770) ALBUMIN (BEAKER) 2.7 g/dL 3.5-5.0 L (test code = 1145) ALKALINE 191 U/L 40-150 H PHOSPHATASE (BEAKER) (test code = 346) BILIRUBIN TOTAL 0.2 mg/dL 0.2-1.2 (BEAKER) (test code = 377) SODIUM (BEAKER) 131 meq/L 136-145 L (test code = 381) POTASSIUM (BEAKER) 4.3 meq/L 3.5-5.1 (test code = 379) CHLORIDE (BEAKER) 103 meq/L 98-107 (test code = 382) CO2 (BEAKER) (test 22 meq/L 22-29 code = 355) BLOOD UREA 46 mg/dL 7-21 H NITROGEN (BEAKER) (test code = 354) CREATININE 3.00 mg/dL 0.57-1.25 H (BEAKER) (test code = 358) GLUCOSE RANDOM 80 mg/dL 70-105 (BEAKER) (test code = 652) CALCIUM (BEAKER) 9.7 mg/dL 8.4-10.2 (test code = 697) AST (SGOT) 19 U/L 5-34 (BEAKER) (test code = 353) ALT (SGPT) 17 U/L 6-55 (BEAKER) (test code = 347) EGFR (BEAKER) 22 Interpretatio n of eGFR (test code = 1092) mL/min/1.[address] age Description sq m Result G1 Iva l or high >=90 G2 Mildly decreased 60-89 G3a Mildl y to moderately 45-5 9 G3b Moderately to s everely 30-44 G4 Severl y decreased 15-29 G5 Kidney failure <15Reported eGF R is based on the CKD-EPI 2020 equation that d oes not use a race coefficientEsti mated GFR is not as accur ate as Creatinine Gemma angela in predicting glom erular filtration rate . Estimated GFR is not appl icable for dialysis patien ts Bag Grader ID - ALECIA [id number] 05:43:31 Test Item Value Reference Range Interpretation Comments MAGNESIUM (BEAKER) (test code = 1.9 mg/dL 1.6-2.6 627) Bag Grader ID - ALECIA [id number] 05:43:31 Test Item Value Reference Range Interpretation Comments PHOSPHORUS (BEAKER) (test code = 4.3 mg/dL 2.3-4.7 604) Bag Grader ID - ALECIA MCBC W/PLT COUNT & AUTO [id number] 05:31:30 Test Item Value Reference Range Interpretation Comments WHITE BLOOD CELL COUNT (BEAKER) 7.0 K/ L 3.5-10.5 (test code = 775) RED BLOOD CELL COUNT (BEAKER) 3.16 M/ L 4.63-6.08 L (test code = 761) HEMOGLOBIN (BEAKER) (test code = 8.0 GM/DL 13.7-17.5 L 410) HEMATOCRIT (BEAKER) (test code = 26.1 % 40.1-51.0 L 411) MEAN CORPUSCULAR VOLUME (BEAKER) 82.6 fL 79.0-92.2 (test code = 753) MEAN CORPUSCULAR HEMOGLOBIN 25.3 pg 25.7-32.2 L (BEAKER) (test code = 751) MEAN CORPUSCULAR HEMOGLOBIN CONC 30.7 GM/DL 32.3-36.5 L (BEAKER) (test code = 752) RED CELL DISTRIBUTION WIDTH 15.7 % 11.6-14.4 H (BEAKER) (test code = 412) PLATELET COUNT (BEAKER) (test 422 K/CU MM 150-450 code = 756) MEAN PLATELET VOLUME (BEAKER) 9.2 fL 9.4-12.4 L (test code = 754) NUCLEATED RED BLOOD CELLS 0 /100 WBC 0-0 (BEAKER) (test code = 413) NEUTROPHILS RELATIVE PERCENT 62 % (BEAKER) (test code = 429) LYMPHOCYTES RELATIVE PERCENT 16 % (BEAKER) (test code = 430) MONOCYTES RELATIVE PERCENT 10 % (BEAKER) (test code = 431) EOSINOPHILS RELATIVE PERCENT 9 % (BEAKER) (test code = 432) BASOPHILS RELATIVE PERCENT 2 % (BEAKER) (test code = 437) NEUTROPHILS ABSOLUTE COUNT 4.36 K/ L 1.78-5.38 (BEAKER) (test code = 670) LYMPHOCYTES ABSOLUTE COUNT 1.11 K/ L 1.32-3.57 L (BEAKER) (test code = 414) MONOCYTES ABSOLUTE COUNT (BEAKER) 0.72 K/ L 0.30-0.82 (test code = 415) EOSINOPHILS ABSOLUTE COUNT 0.61 K/ L 0.04-0.54 H (BEAKER) (test code = 416) BASOPHILS ABSOLUTE COUNT (BEAKER) 0.12 K/ L 0.01-0.08 H (test code = 417) IMMATURE GRANULOCYTES-RELATIVE 1 % 0-1 PERCENT (BEAKER) (test code = 2801) [id number] 06:13:07 Test Item Value Reference Range Interpretation Comments CORTISOL, TOTAL (BEAKER) (test code 8.6 ug/dL 3.7-19.4 = 6915) Bag Grader ID - BSBASIC METABOLIC [id number] 06:06:58 Test Item Value Reference Range Interpretation Comments SODIUM (BEAKER) 134 meq/L 136-145 L (test code = 381) POTASSIUM 4.3 meq/L 3.5-5.1 (BEAKER) (test code = 379) CHLORIDE (BEAKER) 107 meq/L 98-107 (test code = 382) CO2 (BEAKER) 19 meq/L 22-29 L (test code = 355) BLOOD UREA 42 mg/dL 7-21 H NITROGEN (BEAKER) (test code = 354) CREATININE 2.91 mg/dL 0.57-1.25 H (BEAKER) (test code = 358) GLUCOSE RANDOM 85 mg/dL 70-105 (BEAKER) (test code = 652) CALCIUM (BEAKER) 9.7 mg/dL 8.4-10.2 (test code = 697) EGFR (BEAKER) 23 Interpretatio n of eGFR (test code = mL/min/1.73 values Stage De scription 1092) sq m Result G1 Iva l or high >=90 G2 Mildly decreased 60-89 G3a Mildl y to moderately 45-5 9 G3b Moderately to s everely 30-44 G4 Severl y decreased 15-29 G5 Kidney failure <15Reported eGF R is based on the CKD-EPI 2020 equation that d oes not use a race coefficientEsti mated GFR is not as accur ate as Creatinine Gemma angela in predicting glom erular filtration rate . Estimated GFR is not appl icable for dialysis patien ts Bag Grader ID - ALECIA MCBC W/PLT COUNT & AUTO [id number] 05:20:20 Test Item Value Reference Range Interpretation Comments WHITE BLOOD CELL COUNT (BEAKER) 6.9 K/ L 3.5-10.5 (test code = 775) RED BLOOD CELL COUNT (BEAKER) 3.30 M/ L 4.63-6.08 L (test code = 761) HEMOGLOBIN (BEAKER) (test code = 8.4 GM/DL 13.7-17.5 L 410) HEMATOCRIT (BEAKER) (test code = 27.0 % 40.1-51.0 L 411) MEAN CORPUSCULAR VOLUME (BEAKER) 81.8 fL 79.0-92.2 (test code = 753) MEAN CORPUSCULAR HEMOGLOBIN 25.5 pg 25.7-32.2 L (BEAKER) (test code = 751) MEAN CORPUSCULAR HEMOGLOBIN CONC 31.1 GM/DL 32.3-36.5 L (BEAKER) (test code = 752) RED CELL DISTRIBUTION WIDTH 15.7 % 11.6-14.4 H (BEAKER) (test code = 412) PLATELET COUNT (BEAKER) (test 435 K/CU MM 150-450 code = 756) MEAN PLATELET VOLUME (BEAKER) 9.3 fL 9.4-12.4 L (test code = 754) NUCLEATED RED BLOOD CELLS 0 /100 WBC 0-0 (BEAKER) (test code = 413) NEUTROPHILS RELATIVE PERCENT 67 % (BEAKER) (test code = 429) LYMPHOCYTES RELATIVE PERCENT 14 % (BEAKER) (test code = 430) MONOCYTES RELATIVE PERCENT 9 % (BEAKER) (test code = 431) EOSINOPHILS RELATIVE PERCENT 8 % (BEAKER) (test code = 432) BASOPHILS RELATIVE PERCENT 1 % (BEAKER) (test code = 437) NEUTROPHILS ABSOLUTE COUNT 4.60 K/ L 1.78-5.38 (BEAKER) (test code = 670) LYMPHOCYTES ABSOLUTE COUNT 0.94 K/ L 1.32-3.57 L (BEAKER) (test code = 414) MONOCYTES ABSOLUTE COUNT (BEAKER) 0.58 K/ L 0.30-0.82 (test code = 415) EOSINOPHILS ABSOLUTE COUNT 0.55 K/ L 0.04-0.54 H (BEAKER) (test code = 416) BASOPHILS ABSOLUTE COUNT (BEAKER) 0.09 K/ L 0.01-0.08 H (test code = 417) IMMATURE GRANULOCYTES-RELATIVE 2 % 0-1 H PERCENT (BEAKER) (test code = 2801) BASIC METABOLIC [id number] 06:29:33 Test Item Value Reference Range Interpretation Comments SODIUM (BEAKER) 130 meq/L 136-145 L (test code = 381) POTASSIUM 4.4 meq/L 3.5-5.1 (BEAKER) (test code = 379) CHLORIDE (BEAKER) 101 meq/L 98-107 (test code = 382) CO2 (BEAKER) 21 meq/L 22-29 L (test code = 355) BLOOD UREA 37 mg/dL 7-21 H NITROGEN (BEAKER) (test code = 354) CREATININE 3.02 mg/dL 0.57-1.25 H (BEAKER) (test code = 358) GLUCOSE RANDOM 85 mg/dL 70-105 (BEAKER) (test code = 652) CALCIUM (BEAKER) 9.4 mg/dL 8.4-10.2 (test code = 697) EGFR (JESSICA) 22 Interpretatio n of eGFR (test code = mL/min/1.73 values Stage De scription 1092) sq m Result G1 Iva l or high >=90 G2 Mildly decreased 60-89 G3a Mild ly to moderately 45-5 9 G3b Moderately to s everely 30-44 G4 Severl y decreased 15-29 G5 Kidney failure <15Reported eGF R is based on the CKD-EPI 2020 equation that d oes not use a race coefficientEsti mated GFR is not as accur ate as Creatinine Gemma angela in predicting glom erular filtration rate . Estimated GFR is not appl icable for dialysis patien ts Bag Grader ID - PIAYA LSARS-COV2/RT-PCR ([facility])2022-04-15 03:24:59 Test Item Value Reference Range Interpretation Comments SARS-COV2/RT-PCR (test Negative Not Detected, Negative, code = 3345120) See external report for linked test SARS-COV-2 PERFORMING LAB [facility] (test code = 3268373) Negative result for this test determines that SARS-CoV-2 RNA was not present in the specimen above the Limit of Detection (LOD). However, Negative results do not preclude SARS-CoV-2 infection and should not be used as the sole basis for treatment or patient management decisions. Negative results must be combined with clinical observations, patient history, and epidemiological information. A false negative result may occur if a specimen is improperly collected, transported or handled. A false negative result should be considered if patient's recent exposures or clinical presentation indicate that COVID-19 (SARS-CoV-2) is likely and diagnostic tests for other causes of illness are negative. Re-testing should be considered in cases of suspected false negatives.The limit of detection for this assay is 800 copies/mL.This SARS CoV-2 test is a real-time RT-PCR test intended for the qualitative detection of nucleic acid from SARS-CoV-2 in a nasopharyngeal swab specimen collected from individuals suspected of COVID-19 by their healthcare provider.This test has not been Food and Drug Administration (FDA) cleared or approved. This is a modified version of an approved Emergency Use Authorization (EUA) and is in the process of review by the FDA. Once authorized by the FDA, the issued EUA will be effective until the declaration that circumstances exist justifying the authorization of the emergency use ofin vitro diagnostic tests for detection and/or diagnosis of COVID-19 is terminated under Section 564(b)(2) of the Act or the EUA is revoked under Section 564(g) of the Act.Fact Sheet for Healthcare Prov iders:https://www.[employer]/sites/default/files/product/documents/Fact_Sheet_HC _Mpugdobmn_Pffz_YITS-TsP-9.pdfFact Sheet for Healthcare Patients:https://www.[employer]/sites/default/files/product/docume nts/Nyjo_Hqlmy_Gulrdrdp_Ncfy_QYEA-DgS-8.pdfPerforming Laboratory:[facility], [place] [id number] 18:53:54 Test Item Value Reference Range Interpretation Comments SODIUM (BEAKER) (test code = 381) 131 meq/L 136-145 L Bag Grader ID - BSALPHA FETOPROTEIN (AFP), TUMOR [id number] 16:11:12 Test Item Value Reference Range Interpretation Comments ALPHA-FETOPROTEIN (BEAKER) (test code < ng/mL <10.0 = 1094) Bag Grader ID - ALECIA MUrinalysis w/Microscopic + Reflex to [id number] 02:06:00 Test Item Value Reference Range Interpretation Comments Color, UA (test code Colorless = 5778-6) Clarity, UA (test Clear code = 5767-9) Specific [place], UA 1.009 1.001-1.035 (test code = 5811-5) pH, UA (test code = 7.0 5.0-8.0 5803-2) Protein, UA (test 20 mg/dL Negative A code = 90874-8) Glucose, UA (test Negative Negative code = 365) Ketones, UA (test Negative Negative code = 2514-8) Bilirubin, UA (test Negative Negative code = 36123-8) Blood, UA (test code Small Negative A = 35363-9) Nitrite, UA (test Negative Negative code = 5802-4) Leukocytes, UA (test Large Negative A code = 5799-2) Urobilinogen, UA 0.2 mg/dL 0.2-1.0 (test code = 01388-3) RBC, UA (test code = 3 See_Comment [Autom ated 17984-1) message] The system which generated this result transmitted reference range : /HPF. The reference range was not used to interpret this result as normal/abnormal . WBC, UA (test code = 13 See_Comment [Autom ated 5821-4) message] The system which generated this result transmitted reference range : /HPF. The reference range was not used to interpret this result as normal/abnormal . Bacteria, UA (test Rare code = 18945-2) Crystals, Urine (test Rare code = 91131-6) Specimen Source (test code = 2795) DILIP (test code = DILIP) Bag Grader ID - [auto]Bag Grader ID - tech Lab Interpretation Abnormal (test code = 13625-7) [facility] [id number] 02:06:00 Test Item Value Reference Range Interpretation Comments COLOR (BEAKER) (test code = 470) Colorless CLARITY (BEAKER) (test code = 469) Clear SPECIFIC GRAVITY UA (BEAKER) (test 1.009 1.001-1.035 code = 468) PH UA (BEAKER) (test code = 467) 7.0 5.0-8.0 PROTEIN UA (BEAKER) (test code = 20 mg/dL Negative A 464) GLUCOSE UA (BEAKER) (test code = Negative Negative 365) KETONES UA (BEAKER) (test code = Negative Negative 371) BILIRUBIN UA (BEAKER) (test code = Negative Negative 462) BLOOD UA (BEAKER) (test code = 461) Small Negative A NITRITE UA (BEAKER) (test code = Negative Negative 465) LEUKOCYTE ESTERASE UA (BEAKER) Large Negative A (test code = 466) UROBILINOGEN UA (BEAKER) (test code 0.2 mg/dL 0.2-1.0 = 463) RBC UA (BEAKER) (test code = 519) 3 /HPF WBC UA (BEAKER) (test code = 520) 13 /HPF BACTERIA (BEAKER) (test code = 517) Rare CRYSTALS, URINE (BEAKER) (test code Rare = 1521) SOURCE(BEAKER) (test code = 2795) Bag Grader ID - [auto]Bag Grader ID - [id number] 17:31:25 Test Item Value Reference Range Interpretation Comments Case Report (test code Medical Cytology = 104) Report Case: [id number] Authorizing Provider: Brandi Rosales Collected: 04/12/2022 05:05 PM MD Saqib Ordering Location: [address] Received: 04/13/2022 09:37 AM Service Pathologist: Myra Armenta MD Specimen: Urine, Catheter DIAGNOSIS (test code = w3pcjSSqYSPil6zcCYBcpP 3220) FuZzEwMzNcZnRuYmpcdWMx IHtccnRmMVxlcGljOTYwMl wnlpDfWDJjjSYiW3Kztgsr QTrzDS3iDQ6udJspdGOupC MiWARbHqAaa1cva180gZKg p3ezPAZSvopwlUb7cXksV1 7rx4R3WxcwQ64gdJYnVEZ0 ICHsVJIbbJSeXHPwQEZ5ZR UglJFrQ4kbRHDvDA6ytfca ETqzIGbnYHJcfRH2FYTzvS UsD4FtOSKkQFloYRRytja4 KdWoAp3ykCSonCzwSPahKI EaTGDzVHnlHWCjRkXbS5DT VYAJESSELvEBQHFOJF7VYZ TNHGQKQG1WMPTsL0iNX3KS IA9KXFzmhRmxSVCmARDkFW 2UH5SRKNCORSCMUvAMYOmQ XThOPYBWNBGHE2IQUFbZFA iqEbKQFFmVY4kHYMSgqeXb HAPkMHFmTINjkImwGQ45xS zjCUG3gQIfPQ7dCLNqlh0r mWPahS5mcDLgwFE3sW3oSH usVA22zRQdLTWepIRtdJzw dnAbJPvdv3MrRRtvAKSmWW 9pqUxqRWIdCD2gPKWsW9sr iI8zcvk7BkPpAVCcFbE7KZ BudzZ6Vup5VLIeKCvgn1vj n5SiXDDbUTd3vQxuGzReVD Nqg4goiqQjZmQkALKtYHMg BGGqcYDcS047c1xoz0lzjo JyfDM2XNQuABQ1KYoiffPn ieF2EBwieRAlJqM0RQbhrq YvLEvxsaJnpiAuRob3WILz Y161EBT0mDsxi2phFRX9IN IiOUAcTsOaXp3gqONgV737 EPWyXRFPFNXjtSd5GGSzdc PwgkYkkKDIp070P805f6nc BPGshnEwbXlAjxaek1pxW8 19XHBhcGVydzEyMjQwXHBh hHUmsAY5AOQjHZ0haiqmVI waFEdcEQQlmeZ3LCOwvGAj P8KhFKFqHN3qjeufLKU2BI mpXTUaDQO8YlSrDJEza3Hh rff7RsMdzw3zbv37BXK7v3 SyoEdlKXB5XTM8EuZzIk4r nVTsERXqZV5iLzPxeXWiYP Jyqj67mVzzACxoOAC1OPLm spFsf2Ssp9zdDzVuwnCbQ2 swC8RbIARuFTMsUJGuYhGo qhZwg9Per5WykTHbuVj7h6 jkINLjOSJohDcrb5niTUI8 RTCbrIKuI9eibQ2lBJKkOP 2hhyohl4oeRPqlKUvgRZYh jBR8mkN3WWVchBSaH4XgoR 9sOMYnBLbdMJZpjns7VlAy Zu2lpKOunLgcPIxfHpcePN dlXHBnbmNvbnRccGduZGVj XHBsYWluXHBsYWluXGYwXG ZzMjRccWxcbGFuZzEwMzNc aGljaFxmMVxkYmNoXGYxXG udI6xfVxUaCxZwQbv3RENs cUZhWDVoNrd4WHMaaKItKJ DZqRtjiY6qUOUdtGtibS4w nCI3KQAxqvRviWVFgZ8gLM GKoM7mRjF9WKTtIzg9NIY3 GqAWGNEryg72 CPT Code(s) (test code x7uitXOsAKJtvRY0ImNwWB = 3357) Svm7vzb6QqyFXvqEYsAPyl uAQxvsYdmx53aVC5iF21IB 9bZGZmGcJ8PLHufzU7Yob7 FDIuMEFvwZNnZ609z6hqr0 oiqmBqeUT0mWkaITPtnxun KmG5EOozNENhuildYGy5UW dsRTEolID3AUVigKHcM8Qz KQZqOY4datg9VDM6QVqvHD IcFfL9SUOnnCToZGQhdKlj QJale206TPL4SvNkXBNkgb NegNlnaX0dRuSaNZG7NZEo OFxwYXJ9 CLINICAL DATA (test d8trgAPpIYJlhBJ8LnIkWA code = 3357) Kbl6fkm7DblYKptDEcLYcf lSIjxyFexz13sLR1iW66JI 0uVCOeCpB0ATAocpX1Njp0 YXYbLNRcnOTbC952g3vmt7 zmenCexAD3pUvzUKBthmbh UtP7ETmyBHHawcwcKIz1IW jhXPNpvME9VAJnwQVhQ6Vk NYNsTT6wobb4ZEN5BCxmTK ZdLbN7MHTitFUvMCFozBmp CPqaj409WMG6ZwCnBPSplj UgnUqvzN3sFnFjOQLYnbGb cs57vbSeIFChU1DqHZggt9 Zuichhg2txFTtptoXbYB9n aMIsNMZ2onEGS1tod61rYh 8fPuWby0Vtw9ntU19xGIrd Ux12htDgoL4yaAH3CAWbJU pgAB67BVfqnGF8sIWvY84k sIaatXMkrPW7XCukHBCmMi ZbNFT5FJRcYURnEGFQHSNu bmQgdHJhbnNmZXJyZWQgZm 4oXYO1arCiEKJeKCNceCCz qFglef2nxXXluG== SPECIMEN SOURCE (test t2szjFOlOROzqCK0YoVqDW code = 3377) Awz9tgp9SwdLUarDKoVQgx eNJabbLhum16eTX9xI49TQ 6mUOJkEbM1GVTwriD0Ell1 XXNxQPFviZRiE088h4gnq9 bozuVboOB8wLrnGRWoztdt FmQ1WNbeAZBvfzotBXi8JM jjUNCbeIC0GAXcaTLzE3Me HLOrFC9aeid7YCL7HHrwDV OhRmB9MCIgmBYtQGPozJbn UZitb983HPJ9ScCwKJSxtq TzbNeznP9eIgDhPZZWJvrF WQpaX1YBOORZKOQaiHLjvU == GROSS DESCRIPTION (test x1ajrYRmOLAbsUE4JaOnCD code = 7325729260) Cox4gfn6ZtbAYxnYPyCFkz xDBoxdNlff34iHB8bZ52IJ 1bZGDrWrT1VARsvqW0Gsc1 WCGxSKFdbGZqS960r4uqy5 nofkLohIQ9aXbpRFLklsht TrF8EIlnJVTdauirCHw1CK yuERBkhBP2YRNghDBlD3Nk CFAmMG7pjmr7DIV3KZeiXS SuAgY8SPQkjMTdLZCbrLdn MWbet826PDR6GmQxADNmyu G2GAgcTIRqT4UcR1BgFSjc NQY3QGWbBUXmWYLiGAAfGK AaQXzvbyK3f3adKXMraTNl IRL4RGgkbONfBVFeARZaJC xkYiBPVlIgIiAzMDAzOTY3 PuP4GIc2AJITUqQwSxZfJd x5MSUeGoPgNMv0MAw0DTwM RbC4WGk7FFndWiCzDUVyXT zcBYy0ALVjPStmtLXfEMWi SWFjJJzeCZadS17oaAdvwC 5cZnMyMCBBLiBVcmluZSwg D8P3xCX2FYVgSSBzqcvjwt HxXMUtH1NwbdOvPOXhH0Jz Q44aq6HsdWVbtcZkuEOiKW sgcHJlcGFyZWQgNCBjeXRv i1RexiRbp6winTuko3GtdA OmQH05DCUzhWJlTEW0DN0j fVxwYXJ9 MICROSCOPIC DESCRIPTION h7vijESbDENilVA9OoGuOD (test code = 3371) Udc5qgo1JprPBbiNFiNAej mLYictOvqt40jUF4tX58WF 9qYMIxPyD0EOXrlqL6Idw9 UECoYJApiMFbB289g9ruq5 tarfGmnXK0iKilDKYpcthc TnT6YOvpHIZeduvxWBr8EB pqGEFnxWP2YNWbxLYkU0Oc DQQxGY3sxap6LTQ8IPthJH FjVaK1TUAndHXwLCZioXiy RSttq003UKW0JaDfPGUauc XekHeqzR2mByYwOEFGIKYe o2FjLKEnMSwgFQT3 STATEMENT OF ADEQUACY Satisfactory (test code = 2757) Gross assessment was [facility] performed at (test code [facility], = 2777) Department of Pathology, [address] [place] [address], Technical component was [facility] performed at ([facility], = 2778) Department of Pathology, [address] [place] [address], Professional component [facility] was performed at ([facility], code = 2779) Department of Pathology, [address] [place] [address], [facility] 17:31:25Medical Cytology Report Case: [id number] Authorizing Provider: Jorgito Rosalesal Collected: 04/12/2022 05:05 PM MD Saqib Ordering Location: [address] Received: 04/13/2022 09:37 AM Service Pathologist: Myra Armenta MD Specimen: Urine, Catheter CATHETERIZED URINE, CYTOLOGY (CYTOSPINS): - NEGATIVE FOR HIGH GRADE UROTHELIAL NEOPLASIA Predominantly acute and chronic inflammation identified Signing Pathologist Direct Phone Line: [phone] signed by Myra Armenta MD on 04/13/2022 at 5:31 [id number] known medical history who was admitted to OSH on 04/02 for syncope, 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 Urine, Catheter.Received 3 cc color less fluid; prepared 4 cytospins.Performed. Formerly [facility], Department of Pathology, [address] [place], [place] [id number], [facility], [facility], [address] [place] [id number], [facility], [facility], [address] [place] [id number], DI, [id number] 16:53:00Unlisted Reason for Exam - Click Yes and Enter Reason Below->NoIs this for enterography?->NoWill this procedure require oral contrast?->No [facility] : 1955 Sex: MFINAL REPORT ABDOMINAL AND PELVIS CT DATED 04/13/2022 COMPARISON: April 09, 2022 CLINICAL INFORMATION: Abdominal pain, acute, nonlocalized TECHNIQUE: Axial images of the abdomen and pelvis were obtained from diaphragm to the pubic symphysis with intravenous contrast. This exam was performed according to our departmental dose-optimization program, which includes automated exposure control, adjustment of the mA and/or kV according to patient size and/or use of interactive reconstruction technique. COMMENT: A loculated heterogeneous collection seen in the right mid abdomen measuring at least to 10.5 x 14.3 x 13.8 cm, previously 10.8 x 15.2 x 15.1 cm. A percutaneous drainage catheter flo ins in place in the collection. Liver and spleen are normal in size without focal abnormality. Gallbladder is contracted. No gallstone or biliary dilatation is noted. Pancreas and adrenals are unremarkable. Both kidneys are normal in size and functioning. Bilateral hydronephrosis and hydroureters are seen. A 3 mm stone is seen in the midpole left kidney. A 1 mm stone is seen in the region of the distal right ureter. There is uroepithelial enhancement bilaterally suggestive of UTI. Soft tissue stranding is seen within the bilateral Gerota's fascia. The urinary bladder is contracted. There is marked wall thickening involving the urinary bladder suggestive of cystitis. The small and large bowel are unremarkable. Appendix is normal in caliber. Prostate is normal in size. IMPRESSION: 1. Interval decrease in size of the loculated complex collection in the right mid abdomen.2. Bilateral hydronephrosis and hydroureter with uroepithelial enhancement suggested UTI.3. Marked wall thickening involving the urinary bladder suggestive of cystitis.4. Left renal and possible distal right ureteral stones. Signed: Seth Calderon Verified Date/Time: 04/13/2022 16:53:11 Reading Location: [address] Body Reading Room COMPREHENSIVE METABOLIC [id number] 05:34:52 Test Item Value Reference Range Interpretation Comments TOTAL PROTEIN 6.0 gm/dL 6.0-8.3 (BEAKER) (test code = 770) ALBUMIN (BEAKER) 2.5 g/dL 3.5-5.0 L (test code = 1145) ALKALINE 190 U/L 40-150 H PHOSPHATASE (BEAKER) (test code = 346) BILIRUBIN TOTAL 0.2 mg/dL 0.2-1.2 (BEAKER) (test code = 377) SODIUM (BEAKER) 131 meq/L 136-145 L (test code = 381) POTASSIUM (BEAKER) 4.4 meq/L 3.5-5.1 (test code = 379) CHLORIDE (BEAKER) 102 meq/L 98-107 (test code = 382) CO2 (BEAKER) (test 24 meq/L 22-29 code = 355) BLOOD UREA 35 mg/dL 7-21 H NITROGEN (BEAKER) (test code = 354) CREATININE 2.77 mg/dL 0.57-1.25 H (BEAKER) (test code = 358) GLUCOSE RANDOM 84 mg/dL 70-105 (BEAKER) (test code = 652) CALCIUM (BEAKER) 9.3 mg/dL 8.4-10.2 (test code = 697) AST (SGOT) 20 U/L 5-34 (BEAKER) (test code = 353) ALT (SGPT) 14 U/L 6-55 (BEAKER) (test code = 347) EGFR (BEAKER) 24 Interpretatio n of eGFR (test code = 1092) mL/min/1.[address] age Description sq m Result G1 Iva l or high >=90 G2 Mildly decreased 60-89 G3a Mildl y to moderately 45-5 9 G3b Moderately to s everely 30-44 G4 Severl y decreased 15-29 G5 Kidney failure <15Reported eGF R is based on the CKD-EPI 202 equation that d oes not use a race coefficientEsti mated GFR is not as accur ate as Creatinine Gemma angela in predicting glom erular filtration rate . Estimated GFR is not appl icable for dialysis patien ts Bag Grader ID - YAMILE GCBC W/PLT COUNT & AUTO [id number] 05:10:44 Test Item Value Reference Range Interpretation Comments WHITE BLOOD CELL COUNT (BEAKER) 6.6 K/ L 3.5-10.5 (test code = 775) RED BLOOD CELL COUNT (BEAKER) 3.20 M/ L 4.63-6.08 L (test code = 761) HEMOGLOBIN (BEAKER) (test code = 8.5 GM/DL 13.7-17.5 L 410) HEMATOCRIT (BEAKER) (test code = 27.3 % 40.1-51.0 L 411) MEAN CORPUSCULAR VOLUME (BEAKER) 85.3 fL 79.0-92.2 (test code = 753) MEAN CORPUSCULAR HEMOGLOBIN 26.6 pg 25.7-32.2 (BEAKER) (test code = 751) MEAN CORPUSCULAR HEMOGLOBIN CONC 31.1 GM/DL 32.3-36.5 L (BEAKER) (test code = 752) RED CELL DISTRIBUTION WIDTH 15.5 % 11.6-14.4 H (BEAKER) (test code = 412) PLATELET COUNT (BEAKER) (test 418 K/CU MM 150-450 code = 756) MEAN PLATELET VOLUME (BEAKER) 9.5 fL 9.4-12.4 (test code = 754) NUCLEATED RED BLOOD CELLS 0 /100 WBC 0-0 (BEAKER) (test code = 413) NEUTROPHILS RELATIVE PERCENT 63 % (BEAKER) (test code = 429) LYMPHOCYTES RELATIVE PERCENT 16 % (BEAKER) (test code = 430) MONOCYTES RELATIVE PERCENT 10 % (BEAKER) (test code = 431) EOSINOPHILS RELATIVE PERCENT 7 % (BEAKER) (test code = 432) BASOPHILS RELATIVE PERCENT 2 % (BEAKER) (test code = 437) NEUTROPHILS ABSOLUTE COUNT 4.18 K/ L 1.78-5.38 (BEAKER) (test code = 670) LYMPHOCYTES ABSOLUTE COUNT 1.08 K/ L 1.32-3.57 L (BEAKER) (test code = 414) MONOCYTES ABSOLUTE COUNT (BEAKER) 0.66 K/ L 0.30-0.82 (test code = 415) EOSINOPHILS ABSOLUTE COUNT 0.48 K/ L 0.04-0.54 (BEAKER) (test code = 416) BASOPHILS ABSOLUTE COUNT (BEAKER) 0.11 K/ L 0.01-0.08 H (test code = 417) IMMATURE GRANULOCYTES-RELATIVE 2 % 0-1 H PERCENT (BEAKER) (test code = 2801) [id number] 19:18:49Medical Cytology Report Case: [id number] Authorizing Provider: Carla Brandi Collected: 04/08/2022 05:32 PM MD Saqib Ordering Location: [address] Received: 04/11/2022 09:37 AM Service Pathologist: Masood Hayes MD Specimen: Cyst, HEPATIC COMPLEX CYST FLUID HEPATIC COMPLEX CYST FLUID (CYTOSPINS AND CELL BLOCK): - NEGATIVE FOR MALIGNANCY Predominantly acute inflammation and blood present Signing Pathologist Direct Phone Line: [phone] signed by Masood Hayes MD on 04/12/2022 at 7:18 [id number], [id number] hepatic complex cyst. HEPATIC COMPLEX CYST FLUIDA. Cyst.Received 1100 mls dark bloody fluid; prepared 4 cytospins and cell block(A2)(collodion bag) - for the cell block we used cytorich red fixative to lyse the red blood cells and it was fixed in formalin at 3:38 pm on 04/11/2022erformed. Formerly [facility], Department of Pathology, [address] [place] [address], [facility], [address] [place] [address], [facility], [address] [place] [address], [id number] 12:03:52 Test Item Value Reference Range Interpretation Comments PROSTATE SPECIFIC ANTIGEN (BEAKER) 0.4 ng/mL 0.0-4.0 (test code = 844) Bag Grader ID - PIAYA LBASIC METABOLIC [id number] 06:13:51 Test Item Value Reference Range Interpretation Comments SODIUM (BEAKER) 132 meq/L 136-145 L (test code = 381) POTASSIUM 4.1 meq/L 3.5-5.1 (BEAKER) (test code = 379) CHLORIDE (BEAKER) 100 meq/L 98-107 (test code = 382) CO2 (BEAKER) 25 meq/L 22-29 (test code = 355) BLOOD UREA 34 mg/dL 7-21 H NITROGEN (BEAKER) (test code = 354) CREATININE 2.94 mg/dL 0.57-1.25 H (BEAKER) (test code = 358) GLUCOSE RANDOM 104 mg/dL 70-105 (BEAKER) (test code = 652) CALCIUM (BEAKER) 9.0 mg/dL 8.4-10.2 (test code = 697) EGFR (BEAKER) 23 Interpretatio n of eGFR (test code = mL/min/1.73 values Stage De scription 1092) sq m Result G1 Iva l or high >=90 G2 Mildly decreased 60-89 G3a Mildl y to moderately 45-5 9 G3b Moderately to s everely 30-44 G4 Severl y decreased 15-29 G5 Kidney failure <15Reported eGF R is based on the CKD-EPI 2020 equation that d oes not use a race coefficientEsti mated GFR is not as accur ate as Creatinine Gemma angela in predicting glom erular filtration rate . Estimated GFR is not appl icable for dialysis patien ts Bag Grader ID - PIAYA LBASIC METABOLIC [id number] 23:52:58 Test Item Value Reference Range Interpretation Comments SODIUM (BEAKER) 132 meq/L 136-145 L (test code = 381) POTASSIUM 4.2 meq/L 3.5-5.1 (BEAKER) (test code = 379) CHLORIDE (BEAKER) 99 meq/L 98-107 (test code = 382) CO2 (BEAKER) 22 meq/L 22-29 (test code = 355) BLOOD UREA 36 mg/dL 7-21 H NITROGEN (BEAKER) (test code = 354) CREATININE 3.03 mg/dL 0.57-1.25 H (BEAKER) (test code = 358) GLUCOSE RANDOM 96 mg/dL 70-105 (BEAKER) (test code = 652) CALCIUM (BEAKER) 9.0 mg/dL 8.4-10.2 (test code = 697) EGFR (BEAKER) 22 Interpretatio n of eGFR (test code = mL/min/1.73 values Stage De scription 1092) sq m Result G1 Iva l or high >=90 G2 Mildly decreased 60-89 G3a Mildl y to moderately 45-5 9 G3b Moderately to s everely 30-44 G4 Severl y decreased 15-29 G5 Kidney failure <15Reported eGF R is based on the CKD-EPI 2020 equation that d oes not use a race coefficientEsti mated GFR is not as accur ate as Creatinine Gemma angela in predicting glom erular filtration rate . Estimated GFR is not appl icable for dialysis patien ts Bag Grader ID - BSSODIUM, RANDOM [id number] 22:50:06 Test Item Value Reference Range Interpretation Comments SODIUM URINE (JESSICA) (test code = 43 meq/L 243) Reference Range: No NormalsOperator ID - BSOSMOLALITY, [id number] 22:41:50 Test Item Value Reference Range Interpretation Comments OSMOLALITY URINE 134 mOsm/kg See_Comment [Automated message] (JESSICA) (test code = The sy stem which 614) generated this result transmitted ref erence range: 50-1,200 mOsm/kg. The reference range was not used to int erpret this result as normal/abnormal . CT, [id number] 08:28:00Unlisted Reason for Exam - Click Yes and Enter Reason Below->NoIs this for enterography?->NoWill this procedure require oral contrast?->Yes [facility] : 1955 Sex: MFINAL REPORT CT, ABDOMEN \T\ PELVIS, WITHOUT IV CONTRAST HISTORY: Adnexal mass, malignancy suspected COMPARISON: Abdominal MRI 04/04/2022 TECHNIQUE: Computer tomography of the abdomen and pelvis without intravenous contrast. Dose modulation, iterative reconstruction, and/or weight-based adjustment of the mA/kV was utilized to reduce the radiation dose to as low as reasonably achievable. FINDINGS: Lack of intravenous contrast compromises evaluation of perfusion and for isodense lesions. Lower Thorax: Asymmetric elevation of right hemidiaphragm with mild right basilar atelectasis.Liver: Unremarkable.Gallbladder and bile ducts: Unremarkable.Spleen: Unremarkable.Pancreas: Unremarkable.Adrenals: UnremarkableKidneys and ureters: Moderate right and mild left hydronephrosis, bilateral hydroureter extending to the urinary bladder. A 3 mm calculus layering in the distal right ureter whichis nonobstructive. Two punctate nonobstructive left renal calculi measuring up to 3 mm. Left renal cysts, including a 4 cm parapelvic cyst, simple appearing, no follow-up imaging recommended. Thickening of the urothelium of the proximal right greater than left ureter, with surrounding fat stranding.Bowel: Unremarkable. Normal appendix.Bladder: Marked circumferential urinary bladder wall thickening, which is decompressed with Ordaz catheter.Reproductive organs: Mild prostatomegaly.Lymph nodes: Unremarkable.Peritoneum and retroperitoneum: A heterogeneous thick-walled fluid collection in the right midabdomen, in Morison's pouch, measures 15 x 14 x 15 cm, with a percutaneous drain in appropriate position, slightly decreased in size from 04/04/2022 when it measured 20 x 19 x 17 cm. Mild nonspecific presacral edema. Fat stranding adjacent to the right abdominal fluid collectionVessels: Minimal atherosclerotic calcifications.Abdominal wall: Unremarkable.Bones: Unremarkable. IMPRESSION: Lack of intravenous contrast compromises evaluation of perfusion and for isodense lesions. 1.Slightly decreased sizeof the heterogeneous thick-walled 15 cm right mid abdominal fluid collection, with a percutaneous drain in appropriate position. Was 20 cm on 04/04/2022. 2.Bilateral hydronephrosis and hydroureter. A nonobstructive punctate calculus layering in the dilated distal right ureter. Punctate nonobstructive left renal calculi. 3.Right greater than left urothelial thickening with surrounding edema, please correlate with urinalysis for ascending UTI. 4.Markedly thick-walled urinary bladder. Signed: Coby BullMDReport Verified Date/Time: 04/10/2022 08:28:44 BASIC METABOLIC [id number] 07:02:39 Test Item Value Reference Range Interpretation Comments SODIUM (BEAKER) 136 meq/L 136-145 (test code = 381) POTASSIUM 3.0 meq/L 3.5-5.1 L (BEAKER) (test code = 379) CHLORIDE (BEAKER) 101 meq/L 98-107 (test code = 382) CO2 (BEAKER) 28 meq/L 22-29 (test code = 355) BLOOD UREA 39 mg/dL 7-21 H NITROGEN (BEAKER) (test code = 354) CREATININE 3.05 mg/dL 0.57-1.25 H (BEAKER) (test code = 358) GLUCOSE RANDOM 81 mg/dL 70-105 (BEAKER) (test code = 652) CALCIUM (BEAKER) 8.9 mg/dL 8.4-10.2 (test code = 697) EGFR (BEAKER) 22 Interpretatio n of eGFR (test code = mL/min/1.73 values Stage De scription 1092) sq m Result G1 Iva l or high >=90 G2 Mildly decreased 60-89 G3a Mildl y to moderately 45-5 9 G3b Moderately to s everely 30-44 G4 Severl y decreased 15-29 G5 Kidney failure <15Reported eGF R is based on the CKD-EPI 2020 equation that d oes not use a race coefficientEsti mated GFR is not as accur ate as Creatinine Gemma angela in predicting glom erular filtration rate . Estimated GFR is not appl icable for dialysis patien ts Bag Grader ID - YAMILE GCBC W/PLT COUNT & AUTO [id number] 05:56:53 Test Item Value Reference Range Interpretation Comments WHITE BLOOD CELL COUNT (BEAKER) 6.9 K/ L 3.5-10.5 (test code = 775) RED BLOOD CELL COUNT (BEAKER) 3.18 M/ L 4.63-6.08 L (test code = 761) HEMOGLOBIN (BEAKER) (test code = 8.2 GM/DL 13.7-17.5 L 410) HEMATOCRIT (BEAKER) (test code = 26.1 % 40.1-51.0 L 411) MEAN CORPUSCULAR VOLUME (BEAKER) 82.1 fL 79.0-92.2 (test code = 753) MEAN CORPUSCULAR HEMOGLOBIN 25.8 pg 25.7-32.2 (BEAKER) (test code = 751) MEAN CORPUSCULAR HEMOGLOBIN CONC 31.4 GM/DL 32.3-36.5 L (BEAKER) (test code = 752) RED CELL DISTRIBUTION WIDTH 15.9 % 11.6-14.4 H (BEAKER) (test code = 412) PLATELET COUNT (BEAKER) (test 359 K/CU MM 150-450 code = 756) MEAN PLATELET VOLUME (BEAKER) 8.5 fL 9.4-12.4 L (test code = 754) NUCLEATED RED BLOOD CELLS 0 /100 WBC 0-0 (BEAKER) (test code = 413) NEUTROPHILS RELATIVE PERCENT 66 % (BEAKER) (test code = 429) LYMPHOCYTES RELATIVE PERCENT 12 % (BEAKER) (test code = 430) MONOCYTES RELATIVE PERCENT 13 % (BEAKER) (test code = 431) EOSINOPHILS RELATIVE PERCENT 6 % (BEAKER) (test code = 432) BASOPHILS RELATIVE PERCENT 1 % (BEAKER) (test code = 437) NEUTROPHILS ABSOLUTE COUNT 4.59 K/ L 1.78-5.38 (BEAKER) (test code = 670) LYMPHOCYTES ABSOLUTE COUNT 0.83 K/ L 1.32-3.57 L (BEAKER) (test code = 414) MONOCYTES ABSOLUTE COUNT (BEAKER) 0.91 K/ L 0.30-0.82 H (test code = 415) EOSINOPHILS ABSOLUTE COUNT 0.40 K/ L 0.04-0.54 (BEAKER) (test code = 416) BASOPHILS ABSOLUTE COUNT (BEAKER) 0.07 K/ L 0.01-0.08 (test code = 417) IMMATURE GRANULOCYTES-RELATIVE 2 % 0-1 H PERCENT (BEAKER) (test code = 2801) U/S, DRAINAGE, W/ CATH [id number] 11:45:00Reason for exam:->possible liver biopsy . pt with new diagnosis of metastatic disease , unknown promary [facility] : 1955 Sex: MFINAL REPORT USG guided drainage catheter placement, 04/08/2022. Clinical History: Complex hepatic fluid collection. Comparison: Outside CT 04/02/2022. Modality: USG. Casino Dealer: Gavi. Autos Disassembler: None. Sedation: None. Estimated Blood Loss: Less than 1 cc. Specimen: 1650 ml of dark bloody fluid. Samples sent to laboratory for analysis. Technique: After informed consent was obtained, which included the risks of bleeding, infection, injury to adjacent structures, adverse medication reaction, the patient's right upper quadrant was scanned. The fluid collection in the right lobe ofthe liver was localized. After the skin was prepped and draped in the usual sterile manner, and local anesthesia was achieved with 1% lidocaine, a 5 Monegasque one-step catheter was advanced into the fluidcollection under USG guidance. After a small skin incision was made, a guidewire was advanced into the fluid collection. Subsequently, a soft tissue tract was created with 8 Monegasque dilator. After the tract was dilated, an 8 Monegasque all-purpose drainage catheter was placed into the fluid collection. Thewire was then removed, and the pigtail of the catheter was locked. Approximately 1650 cc of dark oldappearing blood he fluid was drained. Evaluation of the area after the procedure reveals decreased size of the fluid collection. The catheter was then secured onto the skin with suture. A STEPHEN bulb was attached to the catheter, to drain via suction. The patient tolerated the procedure well, without immediate complications. The patient's vital signs remained stable throughout the procedure. Patient disposition: The patient was discharged from the department in stable condition. Impression: Successful and uncomplicated USG guided drainage catheter placement into right hepatic fluid collection. Signed: Reinaldo Gatica Verified Date/Time: 04/09/2022 11:45:26 Reading Location: [facility] Radiology Reading Room Urinalysis w/[id number] 22:10:30 Test Item Value Reference Range Interpretation Comments Color, UA (test code Colorless = 5778-6) Clarity, UA (test Clear code = 5767-9) Specific [place], UA 1.004 1.001-1.035 (test code = 5811-5) pH, UA (test code = 6.5 5.0-8.0 5803-2) Protein, UA (test 50 mg/dL Negative A code = 85555-3) Glucose, UA (test 30 mg/dL Negative A code = 365) Ketones, UA (test Negative Negative code = 2514-8) Bilirubin, UA (test Negative Negative code = 60781-4) Blood, UA (test code Large Negative A = 35504-7) Nitrite, UA (test Negative Negative code = 5802-4) Leukocytes, UA (test Small Negative A code = 5799-2) Urobilinogen, UA 0.2 mg/dL 0.2-1.0 (test code = 90717-8) RBC, UA (test code = 1 See_Comment [Autom ated 41608-5) message] The system which generated this result transmitted reference range : /HPF. The reference range was not used to interpret this result as normal/abnormal . WBC, UA (test code = 4 See_Comment [Autom ated 5821-4) message] The system which generated this result transmitted reference range : /HPF. The reference range was not used to interpret this result as normal/abnormal . Bacteria, UA (test Rare code = 52278-1) Crystals, Urine (test None Seen code = 32984-5) Specimen Source (test code = 2795) DILIP (test code = DILIP) Bag Grader ID - [auto]Bag Grader ID - tech Lab Interpretation Abnormal (test code = 10763-8) [facility] [id number] 22:10:30 Test Item Value Reference Range Interpretation Comments COLOR (BEAKER) (test code = 470) Colorless CLARITY (BEAKER) (test code = 469) Clear SPECIFIC GRAVITY UA (BEAKER) (test 1.004 1.001-1.035 code = 468) PH UA (BEAKER) (test code = 467) 6.5 5.0-8.0 PROTEIN UA (BEAKER) (test code = 50 mg/dL Negative A 464) GLUCOSE UA (BEAKER) (test code = 30 mg/dL Negative A 365) KETONES UA (BEAKER) (test code = Negative Negative 371) BILIRUBIN UA (BEAKER) (test code = Negative Negative 462) BLOOD UA (BEAKER) (test code = 461) Large Negative A NITRITE UA (BEAKER) (test code = Negative Negative 465) LEUKOCYTE ESTERASE UA (BEAKER) Small Negative A (test code = 466) UROBILINOGEN UA (BEAKER) (test code 0.2 mg/dL 0.2-1.0 = 463) RBC UA (BEAKER) (test code = 519) 1 /HPF WBC UA (BEAKER) (test code = 520) 4 /HPF BACTERIA (BEAKER) (test code = 517) Rare CRYSTALS, URINE (BEAKER) (test code None Seen = 1521) SOURCE(BEAKER) (test code = 2795) Bag Grader ID - [auto]Bag Grader ID - techU/S, RENAL, [id number] 11:09:00 staffingReason for exam:->hydronephrosis [facility] : 1955 Sex: MFINAL REPORT U/S, RENAL, COMPLETE CLINICAL HISTORY: hydronephrosis COMPARISON: None. TECHNIQUE: Real time grayscale and color Doppler imaging of the kidneys and urinary bladder was performed. FINDINGS: Right kidney:Length = 10.9 cmCortical thickness: Mild thinningEchogenicity: Diffusely increasedCollecting system: Mild hydronephrosisOther findings: None Left kidney:Length = 10.2 cmCortical thickness: NormalEchogenicity: NormalCollecting system: Moderate hydronephrosisOther findings:None Urinary bladder: Decompressed with a Ordaz catheter but is thick-walled Other: Renal artery andvein are patent bilaterally. There is large complex septated locule of fluid in the right upper quadrant of the abdomen, and something solid-appearing measuring 14.7 x 9.2 x 12.7 cm within this complexfluid collection IMPRESSION: 1.A large septated locule of fluid in the right upper quadrant abdomen,with apparent 14.7 cm central solid component or central clot. Recommend CT abdomen pelvis for follow- up. 2.Moderate left and mild right hydronephrosis. 3.Echogenic right renal parenchyma suggesting chronic kidney disease. 4.Urinary bladder is thick-walled, please correlate with urinalysis. Signed: Coby Bullort Verified Date/Time: 04/08/2022 11:09:52 IRON, TIBC, % SAT. (WITHOUT FERRITIN)2022-04-08 06:46:55 Test Item Value Reference Range Interpretation Comments IRON (BEAKER) (test code = 547) 17.0 ug/dL 40.0-160.0 L TOTAL IRON BINDING CAPACITY 108 ug/dL 250-450 L (BEAKER) (test code = 769) IRON % SATURATION (2) (BEAKER) 16 % 20-55 L (test code = 2590) Bag Grader ID Jojo POTTER [id number] 06:35:46 Test Item Value Reference Range Interpretation Comments FERRITIN (BEAKER) (test code = 1328.71 ng/mL 5.00-275.00 H 361) Bag Grader ID Jojo POTTER WCOMPREHENSIVE METABOLIC [id number] 06:35:16 Test Item Value Reference Range Interpretation Comments TOTAL PROTEIN 6.2 gm/dL 6.0-8.3 (BEAKER) (test code = 770) ALBUMIN (BEAKER) 2.5 g/dL 3.5-5.0 L (test code = 1145) ALKALINE 195 U/L 40-150 H PHOSPHATASE (BEAKER) (test code = 346) BILIRUBIN TOTAL 0.4 mg/dL 0.2-1.2 (BEAKER) (test code = 377) SODIUM (BEAKER) 134 meq/L 136-145 L (test code = 381) POTASSIUM (BEAKER) 3.7 meq/L 3.5-5.1 (test code = 379) CHLORIDE (BEAKER) 108 meq/L 98-107 H (test code = 382) CO2 (BEAKER) (test 15 meq/L 22-29 L code = 355) BLOOD UREA 55 mg/dL 7-21 H NITROGEN (BEAKER) (test code = 354) CREATININE 3.40 mg/dL 0.57-1.25 H (BEAKER) (test code = 358) GLUCOSE RANDOM 85 mg/dL 70-105 (BEAKER) (test code = 652) CALCIUM (BEAKER) 9.5 mg/dL 8.4-10.2 (test code = 697) AST (SGOT) 16 U/L 5-34 (BEAKER) (test code = 353) ALT (SGPT) 11 U/L 6-55 (BEAKER) (test code = 347) EGFR (BEAKER) 19 Interpretatio n of eGFR (test code = 1092) mL/min/1.[address] age Description sq m Result G1 Iva l or high >=90 G2 Mildly decreased 60-89 G3a Mildl y to moderately 45-5 9 G3b Moderately to s everely 30-44 G4 Severl y decreased 15-29 G5 Kidne y failure <15Reported eGF R is based on the CKD-EPI 2020 equation that d oes not use a race coefficientEsti mated GFR is not as accur ate as Creatinine Gemma miller in predicting glom erular filtration rate . Estimated GFR is not appl icable for dialysis patien ts Bag Grader ID - BSCBC W/PLT COUNT & AUTO [id number] 05:28:55 Test Item Value Reference Range Interpretation Comments WHITE BLOOD CELL COUNT (BEAKER) 8.3 K/ L 3.5-10.5 (test code = 775) RED BLOOD CELL COUNT (BEAKER) 3.11 M/ L 4.63-6.08 L (test code = 761) HEMOGLOBIN (BEAKER) (test code = 8.0 GM/DL 13.7-17.5 L 410) HEMATOCRIT (BEAKER) (test code = 25.5 % 40.1-51.0 L 411) MEAN CORPUSCULAR VOLUME (BEAKER) 82.0 fL 79.0-92.2 (test code = 753) MEAN CORPUSCULAR HEMOGLOBIN 25.7 pg 25.7-32.2 (BEAKER) (test code = 751) MEAN CORPUSCULAR HEMOGLOBIN CONC 31.4 GM/DL 32.3-36.5 L (BEAKER) (test code = 752) RED CELL DISTRIBUTION WIDTH 16.2 % 11.6-14.4 H (BEAKER) (test code = 412) PLATELET COUNT (BEAKER) (test 436 K/CU MM 150-450 code = 756) MEAN PLATELET VOLUME (BEAKER) 9.0 fL 9.4-12.4 L (test code = 754) NUCLEATED RED BLOOD CELLS 0 /100 WBC 0-0 (BEAKER) (test code = 413) NEUTROPHILS RELATIVE PERCENT 72 % (BEAKER) (test code = 429) LYMPHOCYTES RELATIVE PERCENT 9 % (BEAKER) (test code = 430) MONOCYTES RELATIVE PERCENT 9 % (BEAKER) (test code = 431) EOSINOPHILS RELATIVE PERCENT 7 % (BEAKER) (test code = 432) BASOPHILS RELATIVE PERCENT 1 % (BEAKER) (test code = 437) NEUTROPHILS ABSOLUTE COUNT 5.99 K/ L 1.78-5.38 H (BEAKER) (test code = 670) LYMPHOCYTES ABSOLUTE COUNT 0.77 K/ L 1.32-3.57 L (BEAKER) (test code = 414) MONOCYTES ABSOLUTE COUNT (BEAKER) 0.77 K/ L 0.30-0.82 (test code = 415) EOSINOPHILS ABSOLUTE COUNT 0.61 K/ L 0.04-0.54 H (BEAKER) (test code = 416) BASOPHILS ABSOLUTE COUNT (BEAKER) 0.09 K/ L 0.01-0.08 H (test code = 417) IMMATURE GRANULOCYTES-RELATIVE 1 % 0-1 PERCENT (BEAKER) (test code = 2801) BASIC METABOLIC [id number] 06:48:23 Test Item Value Reference Range Interpretation Comments SODIUM (BEAKER) 142 meq/L 136-145 (test code = 381) POTASSIUM 4.2 meq/L 3.5-5.1 (BEAKER) (test code = 379) CHLORIDE (BEAKER) 116 meq/L 98-107 H (test code = 382) CO2 (BEAKER) 18 meq/L 22-29 L (test code = 355) BLOOD UREA 58 mg/dL 7-21 H NITROGEN (BEAKER) (test code = 354) CREATININE 3.68 mg/dL 0.57-1.25 H (BEAKER) (test code = 358) GLUCOSE RANDOM 88 mg/dL 70-105 (BEAKER) (test code = 652) CALCIUM (BEAKER) 10.1 mg/dL 8.4-10.2 (test code = 697) EGFR (BEAKER) 17 Interpretatio n of eGFR (test code = mL/min/1.73 values Stage De scription 1092) sq m Result G1 Iva l or high >=90 G2 Mildly decreased 60-89 G3a Mildl y to moderately 45-5 9 G3b Moderately to s everely 30-44 G4 Severl y decreased 15-29 G5 Kidney failure <15Reported eGF R is based on the CKD-EPI 2020 equation that d oes not use a race coefficientEsti mated GFR is not as accur ate as Creatinine Gemma angela in predicting glom erular filtration rate . Estimated GFR is not appl icable for dialysis patien ts Bag Grader ID - JEWELL [id number] 06:46:41 Test Item Value Reference Range Interpretation Comments PHOSPHORUS (BEAKER) (test code = 3.1 mg/dL 2.3-4.7 604) Bag Grader ID - JEWELL LHEPATIC FUNCTION [id number] 06:46:41 Test Item Value Reference Range Interpretation Comments TOTAL PROTEIN (BEAKER) (test code = 6.4 gm/dL 6.0-8.3 770) ALBUMIN (BEAKER) (test code = 1145) 2.7 g/dL 3.5-5.0 L BILIRUBIN TOTAL (BEAKER) (test code 0.4 mg/dL 0.2-1.2 = 377) BILIRUBIN DIRECT (BEAKER) (test 0.3 mg/dL 0.1-0.5 code = 706) ALKALINE PHOSPHATASE (BEAKER) (test 194 U/L 40-150 H code = 346) AST (SGOT) (BEAKER) (test code = 16 U/L 5-34 353) ALT (SGPT) (BEAKER) (test code = 15 U/L 6-55 347) Bag Grader ID - JEWELL [id number] 06:46:40 Test Item Value Reference Range Interpretation Comments MAGNESIUM (BEAKER) (test code = 1.6 mg/dL 1.6-2.6 627) Bag Grader ID - PIAYA LCBC W/PLT COUNT & AUTO [id number] 05:48:19 Test Item Value Reference Range Interpretation Comments WHITE BLOOD CELL COUNT (BEAKER) 8.7 K/ L 3.5-10.5 (test code = 775) RED BLOOD CELL COUNT (BEAKER) 3.44 M/ L 4.63-6.08 L (test code = 761) HEMOGLOBIN (BEAKER) (test code = 8.9 GM/DL 13.7-17.5 L 410) HEMATOCRIT (BEAKER) (test code = 28.7 % 40.1-51.0 L 411) MEAN CORPUSCULAR VOLUME (BEAKER) 83.4 fL 79.0-92.2 (test code = 753) MEAN CORPUSCULAR HEMOGLOBIN 25.9 pg 25.7-32.2 (BEAKER) (test code = 751) MEAN CORPUSCULAR HEMOGLOBIN CONC 31.0 GM/DL 32.3-36.5 L (BEAKER) (test code = 752) RED CELL DISTRIBUTION WIDTH 15.9 % 11.6-14.4 H (BEAKER) (test code = 412) PLATELET COUNT (BEAKER) (test 491 K/CU MM 150-450 H code = 756) MEAN PLATELET VOLUME (BEAKER) 9.2 fL 9.4-12.4 L (test code = 754) NUCLEATED RED BLOOD CELLS 0 /100 WBC 0-0 (BEAKER) (test code = 413) NEUTROPHILS RELATIVE PERCENT 74 % (BEAKER) (test code = 429) LYMPHOCYTES RELATIVE PERCENT 9 % (BEAKER) (test code = 430) MONOCYTES RELATIVE PERCENT 9 % (BEAKER) (test code = 431) EOSINOPHILS RELATIVE PERCENT 7 % (BEAKER) (test code = 432) BASOPHILS RELATIVE PERCENT 1 % (BEAKER) (test code = 437) NEUTROPHILS ABSOLUTE COUNT 6.46 K/ L 1.78-5.38 H (BEAKER) (test code = 670) LYMPHOCYTES ABSOLUTE COUNT 0.76 K/ L 1.32-3.57 L (BEAKER) (test code = 414) MONOCYTES ABSOLUTE COUNT (BEAKER) 0.74 K/ L 0.30-0.82 (test code = 415) EOSINOPHILS ABSOLUTE COUNT 0.58 K/ L 0.04-0.54 H (BEAKER) (test code = 416) BASOPHILS ABSOLUTE COUNT (BEAKER) 0.11 K/ L 0.01-0.08 H (test code = 417) IMMATURE GRANULOCYTES-RELATIVE 1 % 0-1 PERCENT (BEAKER) (test code = 2801) PROTHROMBIN [id number] 05:13:49 Test Item Value Reference Range Interpretation Comments PROTIME (BEAKER) 17.1 seconds 11.9-14.2 H (test code = 759) INR (BEAKER) (test 1.42 See_Comment [Automat ed message] code = 370) The system [employer] generated this result transmitted ref erence range: <=5.90. The reference range was not used to int erpret this result as normal/abnormal . RECOMMENDED COUMADIN/WARFARIN INR THERAPY RANGESSTANDARD DOSE: 2.0 - 3.0 Includes: PROPHYLAXIS for venous thrombosis, systemic embolization; TREATMENT for venous thrombosis and/or pulmonary embolus.HIGH RISK: Target INR is 2.5-3.5 for patients with mechanical heart valves.
[2022-09-08] MEDS ORDERED: NA CHLORIDE 0.9% 500 ML ONE (12:07)
[2022-09-08 12:26] LABS: Absolute Lymphocytes (CBC) 0.9 K/uL (0.7-4.9); Hematocrit 27.1 % (39.6-49.0); Lymphocytes % 14.6 % (15.3-44.8); MCV 83.6 fL (80-100); MPV 6.7 fL (7.6-11.3); RBC Red Blood Cell Count 3.24 M/uL (4.33-5.43)
--- NOTE | 2022-09-08 12:34 | RAD REPORT ---
EXAM DESCRIPTION: CT - [id number] - 09/08/2022 12:18 pm CLINICAL HISTORY: Trauma, head and neck injury. syncopal fall, head injury COMPARISON: Head C Spine Mpr Wo Con dated 04/02/2022; Chest Abd Pelvis Wo Con dated 04/02/2022; Abdome n Wo Cont dated 04/04/2022; Renal Ultrasound-Complete dated 04/05/2022 TECHNIQUE: Axial 5 mm thick images of the head were obtained. Axial 2 mm thick images of the cervical spine were obtained with sagittal and coronal reconstruction images generated and reviewed. All CT scans are performed using dose optimization technique as appropriate and may include automated exposure control or mA/KV adjustment according to patient size. FINDINGS: CT HEAD WITHOUT CONTRAST: No acute hemorrhage, hydrocephalus or extra-axial collection is identified.No areas of brain edema or midline shift. The paranasal sinuses and mastoids are clear.The calvarium is intact. CT CERVICAL SPINE WITHOUT CONTRAST: No fracture or subluxation.No prevertebral soft tissues swelling is identified. Upper lobe pulmonary nodules which were also identified on the chest CT from 04/02/2022. IMPRESSION: No acute intracranial or cervical spine findings. Indeterminate upper lung pulmonary nodules which were also present on the 04/02/2022 CT and similar i n size.
[2022-09-08 12:50] LABS: Albumin 3.2 g/dL (3.4-5.0); Bilirubin Total 0.3 mg/dL (0.2-1.0); Magnesium 2.1 mg/dL (1.6-2.4); Potassium 3.6 mmol/L (3.5-5.1); Protein, Total 7.9 g/dL (6.4-8.2); Troponin High Sensitivity 11.8 pg/mL (<58.9)
--- NOTE | 2022-09-08 13:12 | ER ---
Nurse's Notes [facility] Name: Max Sandoval Age: 67 yrs Sex: Male : 1955 Arrival Date: 09/08/2022 Time: 11:22 Bed 13 Private MD: Diagnosis: Acute renal failure;Orthostatic hypotension;Syncope;Closed head injury;Bilateral hydroureteronephrosis;Bladder outlet obstruction Presentation: 09/08 11:14 Chief complaint: EMS states: Fall after syncopal episode at home. Patient stood up had db nausea and then "passed out". Fell to ground with positive LOC. Witnessed by home health nurse. Patient has right eye abrasion. Denies pain or any other complaints. Glucose for EMS was 106. Coronavirus screen: Vaccine status: Patient reports being unvaccinated. Client denies travel out of the [place] in the last 14 days. At this time, the client does not indicate any symptoms associated with coronavirus-19. Ebola Screen: Patient negative for fever greater than or equal to 101.5 degrees Fahrenheit, and additional compatible Ebola Virus Disease symptoms Patient denies exposure to infectious person. Patient denies travel to an Ebola-affected area in the 21 days before illness onset. No symptoms or risks identified at this time. Initial Sepsis Screen: Does the patient meet any 2 criteria? No. Patient's initial sepsis screen is negative. Does the patient have a suspected source of infection? No. Patient's initial sepsis screen is negative. Risk Assessment: Do you want to hurt yourself or someone else? Patient reports no desire to harm self or others. Onset of symptoms was September 08, 2022. Care prior to arrival: Glucose check: 106. Activity prior to arrival: loss of consciousness. Mechanism of Injury: Fall from standing position. 11:14 Method Of Arrival: EMS: [facility] db 11:14 Acuity: CECILIA 2 db 18:30 Care prior to arrival: None. Trauma event details: Injury occurred in the county of [facility]. 18:31 Mechanism of Injury: Fall from standing position. db Triage Assessment: 11:27 General: Appears in no apparent distress. comfortable, Behavior is calm, cooperative, db appropriate for age, quiet. Pain: Complains of pain in right eye. EENT: No deficits noted. No signs and/or symptoms were reported regarding the EENT system. Neuro: Level of Consciousness is awake, alert, obeys commands, Oriented to person, place, time, situation, Appropriate for age Speech is normal, Pupils are PERRLA. Cardiovascular: No deficits noted. Denies chest pain. Respiratory: No deficits noted. Airway is patent Respiratory effort is even, unlabored, Respiratory pattern is regular, symmetrical, Denies shortness of breath. GI: No deficits noted. No signs and/or symptoms were reported involving the gastrointestinal system. : No deficits noted. No signs and/or symptoms were reported regarding the genitourinary system. Derm: Wound noted right eye. Injury Description: Abrasion sustained to right eye. Trauma Activation: Not Applicable Physician: ED Physician; Name: ; Notified At: ; Arrived At: Physician: General Surgeon; Name: ; Notified At: ; Arrived At: Physician: Radiology; Name: ; Notified At: ; Arrived At: Physician: Respiratory; Name: ; Notified At: ; Arrived At: Physician: Lab; Name: ; Notified At: ; Arrived At: Historical: - Allergies: 11:25 No Known Allergies; db - Home Meds: 11:25 midodrine oral [Active]; tamsulosin oral [Active]; Ferrous Sulfate Oral [Active]; db - PMHx: 11:25 orthostatic hypotension; db - Immunization history:: Adult Immunizations unknown, Client reports having NOT received the Covid vaccine. - Social history:: Smoking status: Patient denies any tobacco usage or history of. - Immunization history: Last tetanus immunization: unknown. Screenin:29 [facility] ED Fall Risk Assessment (Adult) History of falling in the last 3 months, db including since admission Yes- physiologic fall (2 pts) Confusion or Disorientation No (0 pts) Intoxicated or Sedated No (0 pts) Impaired Gait No (0 pts) Mobility Assist Device Used No (0 pt) Altered Elimination No (0 pt) Score/Fall Risk Level 0 - 2 = Low Risk Oriented to surroundings. Abuse screen: Denies threats or abuse. Denies injuries from another. Nutritional screening: No deficits noted. Tuberculosis screening: No symptoms or risk factors identified. Primary Survey: 11:30 NO uncontrolled hemorrhage observed. Breathing/Chest: Spontaneous respiratory effort, db equal unlabored respirations, breath sounds clear bilaterally, regular pattern, symmetrical chest rise and fall. Respiratory effort: spontaneous, unlabored, Breath sounds: clear, bilaterally. Respiratory pattern: regular, Chest inspection: symmetrical rise and fall of the chest. Circulation: No external hemorrhage present. Regular and strong central pulse, skin warm/dry/normal color. Skin color: pink. Disability Pupils are equal, round, reactive to light and accommodation. Client is alert. Exposure/Environment:. Exposure/Environment: A warming method has been applied: A warm blanket has been provided to the patient. Reassessment Breathing: Spontaneous respiratory effort, equal unlabored respirations, breath sounds clear bilaterally, regular pattern with symmetrical chest rise and fall. Respiratory effort Spontaneous Unlabored Breath sounds Clear Respiratory pattern Regular Chest inspection Symmetrical Circulation: No external hemorrhage noted. Regular and strong central pulse, skin warm/dry/normal color. Disability: Pupils Pupils are equal, round, reactive to light and accomodation. Alert. Secondary Survey: 13:19 Injury Description: Abrasion sustained to right eye. db Assessment: 11:29 Reassessment: Patient appears in no apparent distress at this time. SEE TRIAGE FOR db INITIAL ASSESSMENT. 13:41 Reassessment: Patient appears in no apparent distress at this time. Patient and/or db family updated on plan of care and expected duration. Pain level reassessed. Patient is alert, oriented x 3, equal unlabored respirations, skin warm/dry/pink. patient has no complaints. General: Appears in no apparent distress. comfortable, Behavior is calm, cooperative, appropriate for age. Pain: Denies pain. Neuro: No deficits noted. Level of Consciousness is awake, alert, obeys commands, Oriented to person, place, time, situation, Appropriate for age. Cardiovascular: No deficits noted. Respiratory: No deficits noted. Airway is patent Respiratory effort is even, unlabored, Respiratory pattern is regular, symmetrical. GI: No deficits noted. No signs and/or symptoms were reported involving the gastrointestinal system. : No deficits noted. No signs and/or symptoms were reported regarding the genitourinary system. EENT: No deficits noted. No signs and/or symptoms were reported regarding the EENT system. Derm: No deficits noted. No signs and/or symptoms reported regarding the dermatologic system. 16:59 Reassessment: Patient appears in no apparent distress at this time. No changes from db previously documented assessment. Patient and/or family updated on plan of care and expected duration. Pain level reassessed. Patient is alert, oriented x 3, equal unlabored respirations, skin warm/dry/pink. FAMILY AT BEDSIDE. 17:30 Reassessment: Patient appears in no apparent distress at this time. PATIENT PROVIDED db FOOD. 18:00 Reassessment: NOTED BLOOD IN SMILEY CATHETER BAG. NOTIFIED DR. MAIN. REPOSITIONED db SMILEY. WILL MONITOR. 18:00 Reassessment: Patient appears in no apparent distress at this time. Patient and/or db family updated on plan of care and expected duration. Pain level reassessed. Patient is alert, oriented x 3, equal unlabored respirations, skin warm/dry/pink. 18:26 Reassessment: Patient appears in no apparent distress at this time. PATIENT LEAVING. db DR. UMANZOR AT PATIENT BEDSIDE SPEAKING WITH PATIENT. Vital Signs: 11:14 BP 149 / 85 Sitting; Pulse 66; Resp 18; Temp 98.4(O); Pulse Ox 99% on R/A; Weight 68.04 db kg; Height 5 ft. 10 in. (177.80 cm); Pain 0/10; 12:30 BP 119 / 79 LA Sitting; Pulse 80; bc6 12:33 BP 71 / 50 Standing; Pulse 87; bc6 12:35 BP 124 / 75 Supine; Pulse 66; bc6 13:00 BP 147 / 85; Pulse 64; Resp 18; Pulse Ox 100% on R/A; db 15:11 BP 143 / 90; Pulse 69; Resp 18; Pulse Ox 100% on R/A; db 16:30 BP 162 / 84; Pulse 69; Resp 18; Pulse Ox 100% on R/A; db 18:00 BP 157 / 88; Pulse 77; Resp 18; Pulse Ox 100% on R/A; db 11:14 Body Mass Index 21.52 (68.04 kg, 177.80 cm) db [place] Coma Score: 11:30 Eye Response: spontaneous(4). Verbal Response: oriented(5). Motor Response: obeys db commands(6). Total: 15. Trauma Score (Adult): 11:30 Eye Response: spontaneous(1); Verbal Response: oriented(1); Motor Response: obeys db commands(2); Systolic BP: > 89 mm Hg(4); Respiratory Rate: 10 to 29 per min(4); [place] Score: 15; Trauma Score: 12 ED Course: 11:22 Patient arrived in ED. db 11:25 Yamile Main MD is Attending Physician. sd2 11:25 Triage completed. db 11:27 Arm band placed on right wrist. Patient placed in an exam room, on a stretcher. db 11:30 Patient has correct armband on for positive identification. Bed in low position. Call db light in reach. Side rails up X 1. 11:31 Pulse ox on. NIBP on. db 11:31 Patient maintains SpO2 saturation greater than 95% on room air. db 11:56 Jessica Dockery, RN is Primary Nurse. db 12:12 Inserted saline lock: 20 gauge in right antecubital area, using aseptic technique. db Blood collected. 12:20 CT Head C Spine In Process Unspecified. EDMS 13:10 Edilberto Umanzor MD is Hospitalizing Provider. sd2 13:41 Bladder scan completed. 471. db 14:13 Abdomen In Process Unspecified. EDMS 15:30 Smiley cath inserted, using sterile technique, 16 Fr., by safemaker, balloon inflated, to db gravity drainage, urine specimen collected. 18:25 Smiley cath removed intact, balloon deflated, REMOVED PER PATIENT. PATIENT STATED DID db NOT WANT TO LEAVE WITH SMILEY CATHETER IN. 18:26 IV discontinued, intact, bleeding controlled, No redness/swelling at site. db 18:27 Thermoregulation: warm blanket given to patient. db 18:30 No provider procedures requiring assistance completed. db Administered Medications: 12:13 Drug: NS 0.9% 500 ml Route: IV; Rate: bolus; Site: right antecubital; db 13:27 Follow up: Response: No adverse reaction; IV Status: Completed infusion; IV Intake: db 500ml 13:25 Drug: NS 0.9% 1000 ml Route: IV; Rate: 1 bolus; Site: right antecubital; db 15:32 Follow up: Response: No adverse reaction; IV Status: Completed infusion; IV Intake: db 1000ml Medication: 18:25 VIS not applicable for this client. db Intake: 13:27 IV: 500ml; Total: 500ml. db 15:32 IV: 1000ml; Total: 1500ml. db Output: 16:57 Urine: 825ml (Smiley); Total: 825ml. db Outcome: 13:11 Decision to Hospitalize by Provider. sd2 17:19 ER care complete, transfer ordered by MD. sd2 17:57 Discharge ordered by MD. sd2 18:27 Discharged to home via wheelchair. db 18:27 Condition: stable 18:27 Discharge instructions given to patient, Instructed on discharge instructions, follow up and referral plans. the need for admit. 18:30 Patient's length of stay in the Emergency Department was greater than 2 hours. PATIENT db WITH KIDNEY INJURY AND WAS TO BE ADMITTED BUT REFUSEDPatient's length of stay extended due to 18:30 Discharged to PATIENT DID NOT SIGN AMA FORM PRIOR TO LEAVING. PATIENT LEFT IN db WHEELCHAIR WITH FAMILY. VERBALIZED UNDERSTANDING THE RISKS OF LEAVING AND EDUCATED PATIENT TO RETURN IF SYMPTOMS REMAIN OR WORSEN. NOTIFIED PHYSICIAN PATIENT WAS LEAVING. 18:45 Patient left the ED. db Signatures: Dispatcher [employer] Yamile Lindquist MD MD sd2 Jessica Dockery, RN RN db Sobia Rice 6 Corrections: (The following items were deleted from the chart) 18:45 18:31 Patient's length of stay in the Emergency Department was greater than 2 hours. db PATIENT WITH KIDNEY INJURY AND WAS TO BE ADMITTED BUT REFUSEDPatient's length of stay extended due to db
--- NOTE | 2022-09-08 13:12 | EDPHYS ---
Physician Documentation [facility] Name: Max Sandoval Age: 67 yrs Sex: Male : 1955 Arrival Date: 09/08/2022 Time: 11:22 Bed 13 Private MD: ED Physician Yamile Main HPI: 09/08 11:26 This 67 yrs old Male presents to ER via EMS with complaints of Fall Injury, Syncope. sd2 11:26 67 yo M presents via EMS with CC of syncope. Reports feeling weak and not eating well sd2 over the past week with the cold weather and then was having issues with lightheadedness upon standing. Pt was noted to have normal BPs when lying down but dropped to 60/30s with standing on scene with EMS with positive tilt. Pt reports prior issue with orthostatic hypotension and was started on midodrine but reports his Home Health nurse told him to stop it 2 months ago because his BPs were hypertensive. Pt reports however that BP was only taken when sitting or lying down. . Historical: - Allergies: 11:25 No Known Allergies; db - Home Meds: 11:25 midodrine oral [Active]; tamsulosin oral [Active]; Ferrous Sulfate Oral [Active]; db - PMHx: 11:25 orthostatic hypotension; db - Immunization history:: Adult Immunizations unknown, Client reports having NOT received the Covid vaccine. - Social history:: Smoking status: Patient denies any tobacco usage or history of. - Immunization history: Last tetanus immunization: unknown. ROS: 11:26 Constitutional: Negative for fever, chills, and weight loss, Eyes: Negative for injury, sd2 pain, redness, and discharge, Cardiovascular: Negative for chest pain, palpitations, and edema, Positive for syncope Respiratory: Negative for shortness of breath, cough, wheezing. Abdomen/GI: Negative for abdominal pain, nausea, vomiting, diarrhea. MS/Extremity: Negative for injury and deformity, Skin: Negative for injury, rash, and discoloration, Neuro: Negative for headache, numbness and tingling. Exam: 11:26 Constitutional: This is a well developed, well nourished patient who is awake, alert, sd2 and in no acute distress. Head/Face: Normocephalic, abrasion noted to R eyebrow from fall today Eyes: EOMI, normal conjunctiva bilaterally Chest/axilla: Normal chest wall appearance and motion. Nontender with no deformity. Cardiovascular: Regular rate and rhythm with a normal S1 and S2. No gallops, murmurs, or rubs. 2+ distal pulses. Respiratory: Lungs have equal breath sounds bilaterally, clear to auscultation and percussion. No rales, rhonchi or wheezes noted. No increased work of breathing, no retractions or nasal flaring. Abdomen/GI: Soft, non-tender, with normal bowel sounds. No guarding or rebound. No evidence of tenderness throughout. percutaneous drain in place to RLQ of abdomen Skin: Warm, dry with normal turgor. Normal color with no rashes, no lesions, and no evidence of cellulitis. MS/ Extremity: Pulses equal, no cyanosis. Neurovascular intact. Full, normal range of motion. Psych: Awake, alert, with orientation to person, place and time. Behavior, mood, and affect are within normal limits. 12:50 ECG was reviewed by the Attending Physician. NSR, rate 63, no STEMI criteria sd2 Vital Signs: 11:14 BP 149 / 85 Sitting; Pulse 66; Resp 18; Temp 98.4(O); Pulse Ox 99% on R/A; Weight 68.04 db kg; Height 5 ft. 10 in. (177.80 cm); Pain 0/10; 12:30 BP 119 / 79 LA Sitting; Pulse 80; bc6 12:33 BP 71 / 50 Standing; Pulse 87; bc6 12:35 BP 124 / 75 Supine; Pulse 66; bc6 13:00 BP 147 / 85; Pulse 64; Resp 18; Pulse Ox 100% on R/A; db 15:11 BP 143 / 90; Pulse 69; Resp 18; Pulse Ox 100% on R/A; db 16:30 BP 162 / 84; Pulse 69; Resp 18; Pulse Ox 100% on R/A; db 18:00 BP 157 / 88; Pulse 77; Resp 18; Pulse Ox 100% on R/A; db 11:14 Body Mass Index 21.52 (68.04 kg, 177.80 cm) db [place] Coma Score: 11:30 Eye Response: spontaneous(4). Verbal Response: oriented(5). Motor Response: obeys db commands(6). Total: 15. Trauma Score (Adult): 11:30 Eye Response: spontaneous(1); Verbal Response: oriented(1); Motor Response: obeys db commands(2); Systolic BP: > 89 mm Hg(4); Respiratory Rate: 10 to 29 per min(4); [place] Score: 15; Trauma Score: 12 MDM: 11:25 Patient medically screened. sd2 11:26 Differential diagnosis: Differential diagnosis includes but is not limited to: sd2 Vasovagal, cardiogenic, arrhythmia, anemia, electrolyte abnormality, ACS, orthostasis, dehydration among others. Data reviewed: vital signs, nurses notes, EMS record. 17:49 Data reviewed: lab test result(s), EKG, radiologic studies. Counseling: I had a sd2 detailed discussion with the patient and/or guardian regarding: the historical points, exam findings, and any diagnostic results supporting the discharge/admit diagnosis, lab results, radiology results, the need to transfer to another facility. ED course: I have had an extensive discussion with the patient and his sister and [id number] at bedside. We discussed the results including his acute renal failure as well as his chronic bladder outlet obstruction and prior issues regarding the liver mass that was seen and concerned that this may be involved once again. Transfer was recommended by our hospitalist as well to [place] for further evaluation. A Ordaz catheter was placed in the ER and the patient did have good urine output. The patient however is declining transfer. When speaking with his sister at bedside, she reports that the patient has refused to accept that he has cancer or to see an oncologist even when seen by a urologist who recommended the same after looking at his records as recently as 1 week ago. The patient states "I think I will be okay" when discussing going home. I have clearly advised him that he will not be okay and that his situation will only continue to worsen and deteriorate until he progresses to multisystem organ failure and even . The patient has verbalized multiple times throughout the conversation that he is willing to accept these risks at this time. I made it very clear to the patient that he can come back at any time if he changes his mind and would like further evaluation or if he worsens in any way. The patient reports that he has a doctor's appointment this upcoming Monday. I told him that he might not make it until that appointment and that if he does, they will send him directly back to the hospital as this cannot be managed outpatient. The patient verbalizes understanding and still chooses to go home at this time. He is awake, alert and oriented x3 and is capable of making rational decisions at this time. His sister was at bedside as well as his [id number] who witnessed the entire conversation as well. The patient has agreed to sign an informed refusal form and will be discharged home at this time.. 09/08 11:26 Order name: CBC with Diff; Complete Time: 12:37 sd2 09/08 11:26 Order name: CMP; Complete Time: 12:51 sd2 09/08 11:26 Order name: Magnesium; Complete Time: 12:51 sd2 09/08 11:26 Order name: Troponin High Sensitivity; Complete Time: 12:51 sd2 09/08 11:26 Order name: BNP; Complete Time: 12:51 sd2 09/08 13:18 Order name: Urine Microscopic Only; Complete Time: 15:57 sd2 09/08 11:26 Order name: EKG - Nurse/Tech; Complete Time: 12:54 sd2 09/08 11:26 Order name: CT Head C Spine; Complete Time: 12:37 sd2 09/08 14:02 Order name: Abdomen ; Complete Time: 14:55 EDMS 09/08 15:38 Order name: Urine Dipstick-Ancillary; Complete Time: 15:57 EDMS 09/08 11:26 Order name: Orthostatics; Complete Time: 12:39 sd2 09/08 13:18 Order name: Urine Dipstick-Ancillary (obtain specimen); Complete Time: 15:39 sd2 09/08 13:56 Order name: Ordaz; Complete Time: 15:39 sd2 Administered Medications: 12:13 Drug: NS 0.9% 500 ml Route: IV; Rate: bolus; Site: right antecubital; db 13:27 Follow up: Response: No adverse reaction; IV Status: Completed infusion; IV Intake: db 500ml 13:25 Drug: NS 0.9% 1000 ml Route: IV; Rate: 1 bolus; Site: right antecubital; db 15:32 Follow up: Response: No adverse reaction; IV Status: Completed infusion; IV Intake: db 1000ml Disposition Summary: 09/08/22 17:57 Discharge Ordered Location: Home(09/08/22 17:57) sd2 Problem: new(09/08/22 17:57) sd2 Symptoms: are unchanged(09/08/22 17:57) sd2 Condition: Serious(09/08/22 17:57) sd2 Diagnosis - Acute renal failure sd2 - Orthostatic hypotension sd2 - Syncope sd2 - Closed head injury sd2 - Bilateral hydroureteronephrosis sd2 - Bladder outlet obstruction sd2 Followup: sd2 - With: Private Physician - When: Upon discharge from the Emergency Department - Reason: Discharge Instructions: - Discharge Summary Sheet sd2 - Acute Urinary Retention, Male sd2 - Renal Mass sd2 - Indwelling Urinary Catheter Insertion, Care After sd2 Forms: - Medication Reconciliation Form sd2 - Thank You Letter sd2 - Antibiotic Education sd2 - Prescription Opioid Use sd2 Signatures: Dispatcher [employer] EDMS Yamile Main MD MD sd2 Jessica Dockery RN RN db Corrections: (The following items were deleted from the chart) 17:18 13:11 Inpatient Admission sd2 sd2 17:18 13:11 Edilberto Umanzor sd2 sd2 17:18 13:11 Telemetry/MedSurg (Inpatient) sd2 sd2 17:18 13:11 Stable sd2 sd2 17:18 13:11 new sd2 sd2 17:18 13:11 are unchanged sd2 sd2 17:18 13:11 Standard sd2 sd2 17:18 13:11 sd2 sd2 17:18 13:11 Acute renal failure sd2 sd2 17:18 13:11 Orthostatic hypotension sd2 sd2 17:18 13:11 Closed head injury sd2 sd2 17:18 13:11 Syncope sd2 sd2 17:56 17:49 ED course: I have had an extensive discussion with the patient and his sister and sd2 [id number] at bedside. We discussed the results including his acute renal failure as well as his chronic bladder outlet obstruction and prior issues regarding the liver mass that was seen and concerned that this may be involved once again. Transfer was recommended by our hospitalist as well to [place] for further evaluation. A Ordaz catheter was placed in the ER and the patient did have good urine output. The patient however is declining transfer. When speaking with his sister at bedside, she reports that the patient has refused to accept that. sd2 17:56 17:19 [facility]'s Physician sd2 sd2 17:56 17:19 [facility] sd2 sd2 17:56 17:19 Higher level of care sd2 sd2 17:56 17:19 Stable sd2 sd2 17:56 17:19 an ongoing problem sd2 sd2 17:56 17:19 have worsened sd2 sd2 17:56 17:19 Acute renal failure sd2 sd2 17:56 17:19 Orthostatic hypotension sd2 sd2 17:56 17:19 Syncope sd2 sd2 17:56 17:19 Closed head injury sd2 sd2 17:56 17:19 Bilateral hydrureteronephrosis sd2 sd2 17:56 17:19 Bladder outlet obstruction sd2 sd2
[2022-09-08] MEDS ORDERED: NA CHLORIDE 0.9% 1,000 ML ONE (13:25)
--- NOTE | 2022-09-08 14:43 | RAD REPORT ---
EXAM DESCRIPTION: CTAbdomen Pelvis Wo Contrast - 09/08/2022 2:11 pm CLINICAL HISTORY: biliary duct catheter/hydronephrosis COMPARISON: Abdomen Wo Cont dated 04/04/2022; Chest Abd Pelvis Wo Con dated 04/02/2022; Renal Ultrasou nd-Complete dated 04/05/2022 TECHNIQUE: CT of the abdomen and pelvis was performed without contrast. All CT scans are performed using dose optimization technique as appropriate and may include automated exposure control or mA/KV adjustment according to patient size. FINDINGS: Lower chest: Small right pleural effusion Liver: No focal liver masses. Biliary: No biliary ductal dilatation. Stomach: No significant focal abnormality. Duodenum: No significant focal abnormality. Pancreas: No significant abnormality. Spleen: No significant abnormality. Adrenal: No suspicious lesions. Kidney/ureter: Severe bilateral hydronephrosis. Bilateral renal cortical thinning. Perinephric strand ing. Nonobstructing stone left kidney. Retroperitoneum: No retroperitoneal adenopathy. Vascular: No aneurysm. Bowel: No significant focal abnormality. Peritoneum: No ascites or free air.Interval placement of a pigtail drainage catheter into the complex cystic mass at the identified at the right subhepatic recess. There is some hyperdense contents tish g the tip of the catheter. This may represent the residual complex components of the mass that were i dentified on the MRI from 04/04/2022. It could also reflect some interval hemorrhage. Bladder: Mild circumferential bladder wall thickening. Reproductive: TURP defect. Bones: No acute fracture. Other: n/a IMPRESSION: 1. Interval placement of a pigtail drainage catheter into the complex collection identif ied on the MRI from 04/04/2022 in the region of the subhepatic recess. Dense contents at the tip of t he catheter could be residua of the mass or some component of interval hemorrhage. 2. Severe bilateral hydroureteronephrosis. This may be secondary to chronic bladder outlet obstructio n.
[2022-09-08 15:38] LABS: Urine Blood 1+ (Negative); Urine Glucose Trace (Negative); Urine Protein 1+ (Negative); Urine Specific Gravity <=1.005 (1.005-1.030)
[2022-09-08 15:56] LABS: Urine Bacteria <20 /HPF (<20); Urine Mucus Slight /HPF (None Seen)
--- NOTE | 2022-09-08 16:34 | P.CNS ---
Date of Consult: 09/08/22 Reason for Consult: Medical management Requesting Physician: Yamile Main Chief Complaint: Syncope History of Present Illness: Pt is a 67-year-old gentleman who was in the hospital few months ago with a large abdominal mass that was thought to be malignant with metastatic disease. Patient had bilateral hydronephrosis and hydroureter. Patient was transferred to [facility]. Patient renal function slowly improved and patient was discharged from [facility] with a pigtail catheter into the mass which is possibly an abscess that is being drained. However, the catheter has been left there for over 3 months. Patient also has worsening renal failure and patient also has bilateral hydroureter and hydronephrosis. Patient looks to need nephrostomy tubes as well. Patient looks to have metastatic cancer and would benefit from oncology evaluation. The pigtail catheter probably also needs to be removed. He needs to be at a tertiary care facility and will recommend transfer. Allergies No Known Allergies Allergy (Unverified 04/02/22 20:58) Home Medications: Amlodipine [Norvasc*] 10 mg PO DAILY tab 04/06/22 Ensure Enlive 237 ml PO BID can 04/06/22 Hydralazine [Apresoline*] 25 mg PO BID tab 04/06/22 Hydrocodone 7.5/APAP 325 [[place] 7.5/325 mg*] 1 tab PO Q6H PRN tab 04/06/22 Sha [Sha*] 1 pkt PO BID 04/06/22 Labetalol HCl [Trandate*] 10 mg IV Q6H PRN syr 04/06/22 Ondansetron [Zofran*] 4 mg IV Q6HP PRN vial 04/06/22 Tamsulosin [Flomax*] 0.4 mg PO DAILY cap 04/06/22 carvediloL [Coreg*] 6.25 mg PO BIDWM tab 04/06/22 - Past Medical/Surgical History Diabetic: No -: Kidney Stone -: Abdominal mass -: Hypertension -: Chronic kidney failure with hydroureters and hydronephrosis -: pigtail catheter placed Psychosocial/ Personal History: Patient is retired, lives at home alone. - Family History Mother Medical History: Heart disease - Social History Alcohol use: No CD- Drugs: No Caffeine use: Yes Review of Systems 10-point ROS is otherwise unremarkable Physical Examination Reviewed General: Alert, In no apparent distress, Oriented x2, Confused HEENT: Atraumatic, PERRLA, Mucous membr. moist/pink, EOMI, Sclerae nonicteric Neck: Supple, 2+ carotid pulse no bruit, No LAD, Without JVD or thyroid abnormality Respiratory: Clear to auscultation bilaterally, Normal air movement Cardiovascular: Regular rate/rhythm, Normal S1 S2, No murmurs Gastrointestinal: Normal bowel sounds, Soft and benign, Non-distended, No rebound, No guarding, Tenderness Musculoskeletal: No clubbing, No swelling, No tenderness Integumentary: No rashes Neurological: Sensation intact, Cranial nerves 3-12 intact, Normal affect, Abnormal gait, Abnormal strength Lymphatics: No axilla or inguinal lymphadenopathy Laboratory Data (last 24 hrs) 09/08/22 12:12: Sodium 133 L, Potassium 3.6, BUN 63 H, Creatinine 7.38 H*, Glucose 87, Magnesium 2.1, Total Bilirubin 0.3, AST 17, ALT 19, Alkaline Phosphatase 126 H 09/08/22 12:12: WBC 6.00, Hgb 9.0 L, Hct 27.1 L, Plt Count 338 - Problems (1) Acute on chronic kidney failure Current Visit: Yes Status: Acute (2) Bilateral hydronephrosis Current Visit: Yes Status: Acute (3) Abdominal mass Current Visit: Yes Status: Acute (4) Intra-abdominal abscess Current Visit: Yes Status: Acute (5) Syncope Current Visit: Yes Status: Acute Conclusions/ Impression: 1. Plan to transfer to tertiary care facility for possible evaluation for nephrostomy tubes and evaluation of pigtail catheter placed many months ago into an abdominal abscess or mass. Patient needs IV antibiotics and hydration. We will recommend transfer to a tertiary care facility. Critical Care: No Time Spent Managing Pts care (In Minutes): 45
[2022-09-08 19:38] VITALS: TEMP 98.4
[2022-09-08 19:51] VITALS: O2SAT 100
[2022-09-08 19:54] VITALS: BP 157/88
== END 2022-09-08 18:45 | disposition home or self-care (01) ==
LOC: ER 10:52
DX: N17.9 Acute kidney failure, unspecified (principal); I95.1 Orthostatic hypotension; S09.90XA Unspecified injury of head, initial encounter; N13.30 Unspecified hydronephrosis; N32.0 Bladder-neck obstruction
CPT/HCPCS: 96361; 85025; 36415; 83735; 84484; 80053; 83880; 70450; 72125; 74176; 51702; 96360; 99285; J7040; J7030; 81003; 81015

== ENCOUNTER 2022-10-13 17:34 | Emergency (ER) | payer OTHER ==
--- OUTSIDE RECORDS SUMMARY | 2022-10-13 17:41 | XMS REPORT | Continuity of Care Document ---
:1955 Author Organization [facility] t Address [address] [place] [address] Care Team Providers Name Role Phone Kelley Rivera NP Primary Care Physician KELLEY RIVERA Attending Clinician Unavailable KELLEY RIVERA Attending Clinician Unavailable SKIP LANGFORD Attending Clinician Unavailable CRISTI NUNEZ Attending Clinician Unavailable RUBY AWAN Attending Clinician Unavailable Doctor Unassigned, [place] Attending Clinician Unavailable Sara Michael MD Attending Clinician [facility] Attending Clinician [phone] Brown Adame MD Attending Clinician BROWN ADAME Attending Clinician Unavailable Pob, [facility] Attending Clinician Unavailable Juancarlos Murphy LMSW Attending Clinician KALEB VELASQUEZ Attending Clinician Unavailable Kaleb Velasquez MD Attending Clinician BRANDI ROSALES Attending Clinician Unavailable Latha Grant MD Attending Clinician Brandi Rosales MD Attending Clinician [phone] Juancarlos Magana MD Attending Clinician JUANCARLOS MAGANA Admitting Clinician Unavailable Payers Payer Name Policy Type Policy Number Effective Date Expiration Date S ource MEDICARE PART A [id number] 2019 00:00:00 Problems Condition Condition Condition Status Onset Resolution Last Treating Co mments Source Name Details Category Date Date Treatment Clinician Date 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 0-03 it y of kidney kidney 00:00: [place] disease disease 00 Medical [facility] [place] [facility] Kidney Disease Active 2021-09 Univers stone stone 0-03 ity of 00:00: [place] [facility] Chronic Chronic Disease Active 2021-09 Univers kidney kidney 0-03 ity of disease, disease, 00:00: [place] unspecifie unspecifie 00 Me dical d 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 2021-09 [facility] prostatic prostatic 0-03 [place] hyper[place] 00 [facility] urinary urinary Branch retention retention Anemia, Anemia, Disease Active 2021-09 [facility] unspecifie unspecifie 0-03 it y of d type d type 00:00: [place] [address] [place] [address] Fall, Fall, Disease Active 2021-09 [facility] sequela sequela 0-03 ity of 00:00: [address] Metastatic Metastatic Disease Active [facility] neoplastic neoplastic 7- [facility] disease disease 00:00: Medical 00 Center LETY (acute LETY (acute Disease Active [facility] kidney kidney [facility]) 00:[facility]: Medical 00 Center Allergies, Adverse Reactions, Alerts Allergy Allergy Status Severity Reaction(s) Onset Inactive Treating Comm ents Source Name Type Date Date Clinician NO KNOWN Allergy Active [facility] NO KNOWN Drug Active Univers ALLERGIE Class ity of S [facility] Social History Social Habit Start Date Stop Date Quantity Comments Source History SDOH [facility] Alcohol Binge Medical [facility] ter History SDOH [facility] Alcohol Comment Medical C enter History SDOH [facility] Alcohol Std Medical Cent[facility] r Drinks Exposure to 2022-08-12 2022-08-22 Not sure University of SARS-CoV-2 00:00:00 15:13:00 [facility] [place] [facility] (event) [place] Tobacco use and 2022-04-28 2022-04-[address] [facility] kes exposure 00:00:00 00:00:00 Medical [place] Alcohol intake 2022-04-28 2022-04-[address] [facility] 00:00:00 00:00:00 [facility] SDOH 2022-04-28 2022-04-28 1 [place] Alcohol Frequency 00:00:00 00:00:00 [facility] Center Sex Assigned At [birth year] [place] 00:00:00 00:00:00 Medical Center Smoking Status Start Date Stop Date Source Tobacco smoking consumption [facility] Branch Never smoked tobacco [facility] Medications Ordered Filled Start Stop Current Ordering Indication Dosage Frequency Signature Comments Components Source Medication Medication Date Date Medication? Clinician (SIG) Name Name ondansetron Yes [id number] 4mg Take 1 Univers 4 mg 1-13 tablet by ity of disintegrat 00:00: mouth [place] ing tablet 00 every 8 Medica l (eight) Branch hours as needed for Nausea and Vomiting (N/V). ondansetron Yes [id number] 4mg Take 1 Univers 4 mg 1-13 tablet by ity of disintegrat 00:00: mouth [place] ing tablet 00 every 8 Medica l (eight) Branch hours as needed for Nausea and Vomiting (N/V). ondansetron Yes [id number] 4mg Take 1 Univers 4 mg 1-13 tablet by ity of disintegrat 00:00: mouth [place] ing tablet 00 every 8 Medica l (eight) Branch hours as needed for Nausea and Vomiting (N/V). cephALEXin 2022- Yes [id number] 500mg Take 1 Univers (KEFLEX) 09-23 capsule by ity of 500 mg 00:00: 05:59 mouth 4 [place] capsule 00 :00 (four) Medical times Branch daily for 10 days. cephALEXin 2022- Yes [id number] 500mg Take 1 Univers (KEFLEX) 09-23 capsule by ity of 500 mg 00:00: 05:59 mouth 4 [place] capsule 00 :00 (four) Medical times Branch daily for 10 days. cephALEXin 2022- Yes [id number] 500mg Take 1 Univers (KEFLEX) 09-23 capsule by ity of 500 mg 00:00: 05:59 mouth 4 [place] capsule 00 :00 (four) Medical times Branch daily for 10 days. sodium 2021-09 Yes [id number] 325mg Take 1 Uni vers bicarbonate 0-03 tablet by ity of 325 mg 00:00: mouth in [place] tablet 00 the Medical morning Branch and 1 tablet in the evening. midodrine 5 2021-09 Yes [id number] 5mg Take 1 [facility] mg tablet 0-03 tablet by ity o f 00:00: mouth 2 [place] (two) Medical times Branch daily as needed for Other (LOW BP READINGS). TAKE 1 TABLET BY MOUTH TWICE DAILY FOR SYSTOLIC BLOOD PRESSURE LESS THAN 120 tamsulosin 2021-09 Yes [id number] .4mg Take 1 [facility] 0.4 mg 24 0-03 capsule by ity of hr capsule 00:00: mouth in [place] 00 the Medical morning Branch and 1 capsule in the evening. ferrous 2021-09 Yes [id number] 325mg Take 1 Un jeffrey sulfate 0-03 tablet by ity of (FEROSUL) 00:00: [place] 325 mg (65 00 the Medical mg iron) morning. Branch tablet Sodium 2021-09 Yes [id number] 2{tbl} Take 2 Un jeffrey Chloride 0-03 tablets by ity o f 1,000 mg 00:00: mouth 3 [place] TbSO 00 (three) Medical times Branch daily. sodium 2021-09 Yes [id number] 325mg Take 1 Uni vers bicarbonate 0-03 tablet by ity of 325 mg 00:00: mouth in [place] tablet 00 the Medical morning Branch and 1 tablet in the evening. midodrine 5 2021-09 Yes [id number] 5mg Take 1 [facility] mg tablet 0-03 tablet by ity o f 00:00: mouth 2 [place] (two) Medical times Branch daily as needed for Other (LOW BP READINGS). TAKE 1 TABLET BY MOUTH TWICE DAILY FOR SYSTOLIC BLOOD PRESSURE LESS THAN 120 tamsulosin 2021-09 Yes [id number] .4mg Take 1 [facility] 0.4 mg 24 0-03 capsule by ity of hr capsule 00:00: mouth in [place] 00 the Medical morning Branch and 1 capsule in the evening. ferrous 2021-09 Yes [id number] 325mg Take 1 Un jeffrey sulfate 0-03 tablet by ity of (FEROSUL) 00:00: [place] 325 mg (65 00 the Medical mg iron) morning. Branch tablet Sodium 2021-09 Yes [id number] 2{tbl} Take 2 Un jeffrey Chloride 0-03 tablets by ity o f 1,000 mg 00:00: mouth 3 [place] TbSO 00 (three) Medical times Branch daily. sodium 2021-09 Yes [id number] 325mg Take 1 Uni vers bicarbonate 0-03 tablet by ity of 325 mg 00:00: mouth in [place] tablet 00 the Medical morning Branch and 1 tablet in the evening. midodrine 5 2021-09 Yes [id number] 5mg Take 1 Univers mg tablet 0-03 tablet by ity o f 00:00: mouth 2 (two) Medical times Branch daily as needed for Other (LOW BP READINGS). TAKE 1 TABLET BY MOUTH TWICE DAILY FOR SYSTOLIC BLOOD PRESSURE LESS THAN 120 tamsulosin 2021-09 Yes [id number] .4mg Take 1 Univers 0.4 mg 24 0-03 capsule by ity of hr capsule 00:00: mouth in [place] 00 the Medical morning Branch and 1 capsule in the evening. ferrous 2021-09 Yes [id number] 325mg Take 1 Un jeffrey sulfate 0-03 tablet by ity of (FEROSUL) 00:00: mouth [place] 325 mg (65 00 the Medical mg iron) morning. Branch tablet Sodium 2021-09 Yes [id number] 2{tbl} Take 2 Un jeffrey Chloride 0-03 tablets by ity o f 1,000 mg 00:00: mouth 3 [place] TbSO 00 (three) Medical times Branch daily. sodium 2021-09 Yes [id number] 325mg Take 1 Uni vers bicarbonate 0-03 tablet by ity of 325 mg 00:00: mouth in [place] tablet 00 the Medical morning Branch and 1 tablet in the evening. midodrine 5 2021-09 Yes [id number] 5mg Take 1 Univers mg tablet 0-03 tablet by ity o f 00:00: mouth 2 [place] (two) Medical times Branch daily as needed for Other (LOW BP READINGS). TAKE 1 TABLET BY MOUTH TWICE DAILY FOR SYSTOLIC BLOOD PRESSURE LESS THAN 120 tamsulosin 2021-09 Yes [id number] .4mg Take 1 Univers 0.4 mg 24 0-03 capsule by ity of hr capsule 00:00: mouth in [place] 00 the Medical morning Branch and 1 capsule in the evening. ferrous 2021-09 Yes [id number] 325mg Take 1 Un jeffrey sulfate 0-03 tablet by ity of (FEROSUL) 00:00: mouth [place] 325 mg (65 00 the Medical mg iron) morning. Branch tablet Sodium 2021-09 Yes [id number] 2{tbl} Take 2 Un jeffrey Chloride 0-03 tablets by ity o f 1,000 mg 00:00: mouth 3 [place] TbSO 00 (three) Medical times Branch daily. sodium 2021-09 Yes [id number] 325mg Take 1 Uni vers bicarbonate 0-03 tablet by ity of 325 mg 00:00: mouth in [place] tablet 00 the Medical morning Branch and 1 tablet in the evening. midodrine 5 2021-09 Yes [id number] 5mg Take 1 Univers mg tablet 0-03 tablet by ity o f 00:00: mouth 2 [place] (two) Medical times Branch daily as needed for Other (LOW BP READINGS). TAKE 1 TABLET BY MOUTH TWICE DAILY FOR SYSTOLIC BLOOD PRESSURE LESS THAN 120 tamsulosin 2021-09 Yes [id number] .4mg Take 1 Univers 0.4 mg 24 0-03 capsule by ity of hr capsule 00:00: mouth in [place] 00 the Medical morning Branch and 1 capsule in the evening. ferrous 2021-09 Yes [id number] 325mg Take 1 Un jeffrey sulfate 0-03 tablet by ity of (FEROSUL) 00:00: mouth [place] 325 mg (65 00 the Medical mg iron) morning. Branch tablet Sodium 2021-09 Yes [id number] 2{tbl} Take 2 Un jeffrey Chloride 0-03 tablets by ity o f 1,000 mg 00:00: mouth 3 [place] TbSO 00 (three) Medical times Branch daily. sodium 2021-09 Yes [id number] 325mg Take 1 Uni vers bicarbonate 0-03 tablet by ity of 325 mg 00:00: mouth in [place] tablet 00 the Medical morning Branch and 1 tablet in the evening. midodrine 5 2021-09 Yes [id number] 5mg Take 1 Univers mg tablet 0-03 tablet by ity o f 00:00: mouth 2 [place] 00 (two) Medical times Branch daily as needed for Other (LOW BP READINGS). TAKE 1 TABLET BY MOUTH TWICE DAILY FOR SYSTOLIC BLOOD PRESSURE LESS THAN 120 tamsulosin 2021-09 Yes [id number] .4mg Take 1 Univers 0.4 mg 24 0-03 capsule by ity of hr capsule 00:00: mouth in [place] 00 the Medical morning Branch and 1 capsule in the evening. ferrous 2021-09 Yes [id number] 325mg Take 1 Un jeffrey sulfate 0-03 tablet by ity of (FEROSUL) 00:00: mouth [place] 325 mg (65 00 the Medical mg iron) morning. Branch tablet Sodium 2021-09 Yes [id number] 2{tbl} Take 2 Un jeffrey Chloride 0-03 tablets by ity o f 1,000 mg 00:00: mouth 3 [place] TbSO 00 (three) Medical times Branch daily. sodium 2021-09 Yes [id number] 325mg Take 1 Uni vers bicarbonate 0-03 tablet by ity of 325 mg 00:00: mouth in [place] tablet 00 the Medical morning Branch and 1 tablet in the evening. midodrine 5 2021-09 Yes [id number] 5mg Take 1 Univers mg tablet 0-03 tablet by ity o f 00:00: mouth 2 [place] 00 (two) Medical times Branch daily as needed for Other (LOW BP READINGS). TAKE 1 TABLET BY MOUTH TWICE DAILY FOR SYSTOLIC BLOOD PRESSURE LESS THAN 120 tamsulosin 2021-09 Yes [id number] .4mg Take 1 Univers 0.4 mg 24 0-03 capsule by ity of hr capsule 00:00: mouth in [place] 00 the Medical morning Branch and 1 capsule in the evening. ferrous 2021-09 Yes [id number] 325mg Take 1 Un jeffrey sulfate 0-03 tablet by ity of (FEROSUL) 00:00: mouth [place] 325 mg (65 00 the Medical mg iron) morning. Branch tablet Sodium 2021-09 Yes [id number] 2{tbl} Take 2 Un jeffrey Chloride 0-03 tablets by ity o f 1,000 mg 00:00: mouth 3 [place] TbSO 00 (three) Medical times Branch daily. sodium 2021-09 Yes [id number] 325mg Take 1 Uni vers bicarbonate 0-03 tablet by ity of 325 mg 00:00: mouth in [place] tablet 00 the Medical morning Branch and 1 tablet in the evening. midodrine 5 2021-09 Yes [id number] 5mg Take 1 Univers mg tablet 0-03 tablet by ity o f 00:00: mouth 2 [place] (two) Medical times Branch daily as needed for Other (LOW BP READINGS). TAKE 1 TABLET BY MOUTH TWICE DAILY FOR SYSTOLIC BLOOD PRESSURE LESS THAN 120 tamsulosin 2021-09 Yes [id number] .4mg Take 1 Univers 0.4 mg 24 0-03 capsule by ity of hr capsule 00:00: mouth in [place] 00 the Medical morning Branch and 1 capsule in the evening. ferrous 2021-09 Yes [id number] 325mg Take 1 Un jeffrey sulfate 0-03 tablet by ity of (FEROSUL) 00:00: mouth [facility] mg (65 00 the Medical mg iron) morning. Branch tablet Sodium 2021-09 Yes [id number] 2{tbl} Take 2 Un jeffrey Chloride 0-03 tablets by ity o f 1,000 mg 00:00: mouth 3 [facility] (three) Medical times Branch daily. sodium 2021-09 Yes [id number] 325mg Take 1 Uni vers bicarbonate 0-03 tablet by ity of 325 mg 00:00: mouth in [place] tablet 00 the Medical morning Branch and 1 tablet in the evening. midodrine 5 2021-09 Yes [id number] 5mg Take 1 Univers mg tablet 0-03 tablet by ity o f 00:00: mouth 2 [place] (two) Medical times Branch daily as needed for Other (LOW BP READINGS). TAKE 1 TABLET BY MOUTH TWICE DAILY FOR SYSTOLIC BLOOD PRESSURE LESS THAN 120 tamsulosin 2021-09 Yes [id number] .4mg Take 1 Univers 0.4 mg 24 0-03 capsule by ity of hr capsule 00:00: mouth in [place] 00 the Medical morning Branch and 1 capsule in the evening. ferrous 2021-09 Yes [id number] 325mg Take 1 Un jeffrey sulfate 0-03 tablet by ity of (FEROSUL) 00:00: mouth [place] 325 mg (65 00 the Medical mg iron) morning. Branch tablet Sodium 2021-09 Yes [id number] 2{tbl} Take 2 Un jeffrey Chloride 0-03 tablets by ity o f 1,000 mg 00:00: mouth 3 [place] TbSO 00 (three) Medical times Branch daily. sodium 2021-09 Yes [id number] 325mg Take 1 Uni vers bicarbonate 0-03 tablet by ity of 325 mg 00:00: mouth in [place] tablet 00 the Medical morning Branch and 1 tablet in the evening. midodrine 2021-09 Yes [id number] 5mg Take 1 Univers mg tablet 0-03 tablet by ity o f 00:00: mouth 2 [place] 00 (two) Medical times Branch daily as needed for Other (LOW BP READINGS). TAKE 1 TABLET BY MOUTH TWICE DAILY FOR SYSTOLIC BLOOD PRESSURE LESS THAN 120 tamsulosin 2021-09 Yes [id number] .4mg Take 1 Univers 0.4 mg 24 0-03 capsule by ity of hr capsule 00:00: mouth in [place] 00 the Medical morning Branch and 1 capsule in the evening. ferrous 2021-09 Yes [id number] 325mg Take 1 Un jeffrey sulfate 0-03 tablet by ity of (FEROSUL) 00:00: mouth in [place] 325 mg (65 00 the Medical mg iron) morning. Branch tablet Sodium 2021-09 Yes [id number] 2{tbl} Take 2 Un jeffrey Chloride 0-03 tablets by ity o f 1,000 mg 00:00: mouth 3 [place] TbSO 00 (three) Medical times Branch daily. sodium 2021-09 Yes [id number] 325mg Take 1 Uni vers bicarbonate 0-03 tablet by ity of 325 mg 00:00: mouth in [place] tablet 00 the Medical morning Branch and 1 tablet in the evening. midodrine 2021-09 Yes [id number] 5mg Take 1 Univers mg tablet 0-03 tablet by ity o f 00:00: mouth 2 [place] (two) Medical times [place] daily as needed for Other (LOW BP READINGS). TAKE 1 TABLET BY MOUTH TWICE DAILY FOR SYSTOLIC BLOOD PRESSURE LESS THAN 120 tamsulosin 2021-09 Yes [id number] .4mg Take 1 Univers 0.4 mg 24 0-03 capsule by ity of hr capsule 00:00: mouth in [place] 00 the Medical morning Branch and 1 capsule in the evening. ferrous 2021-09 Yes [id number] 325mg Take 1 Un jeffrey sulfate 0-03 tablet by ity of (FEROSUL) 00:00: mouth in [place] 325 mg (65 00 the Medical mg iron) morning. Branch tablet Sodium 2021-09 Yes [id number] 2{tbl} Take 2 Un jeffrey Chloride 0-03 tablets by ity o f 1,000 mg 00:00: mouth 3 [place] TbSO 00 (three) Medical times Branch daily. sodium 2021-09 Yes [id number] 325mg Take 1 Uni vers bicarbonate 0-03 tablet by ity of 325 mg 00:00: mouth in [place] tablet 00 the Medical morning Branch and 1 tablet in the evening. midodrine 5 2021-09 Yes [id number] 5mg Take 1 Univers mg tablet 0-03 tablet by ity o f 00:00: mouth 2 [place] (two) Medical times Branch daily as needed for Other (LOW BP READINGS). TAKE 1 TABLET BY MOUTH TWICE DAILY FOR SYSTOLIC BLOOD PRESSURE LESS THAN 120 tamsulosin 2021-09 Yes [id number] .4mg Take 1 Univers 0.4 mg 24 0-03 capsule by ity of hr capsule 00:00: mouth in [place] 00 the Medical morning Branch and 1 capsule in the evening. ferrous 2021-09 Yes [id number] 325mg Take 1 Un jeffrey sulfate 0-03 tablet by ity of (FEROSUL) 00:00: mouth in [facility] s 325 mg (65 00 the Medical mg iron) morning. Branch tablet Sodium 2021-09 Yes [id number] 2{tbl} Take 2 Un jeffrey Chloride 0-03 tablets by ity o f 1,000 mg 00:00: mouth 3 [place] TbSO 00 (three) Medical times Branch daily. sodium 2021-09 Yes [id number] 325mg Take 1 Uni vers bicarbonate 0-03 tablet by ity of 325 mg 00:00: mouth in [place] tablet 00 the Medical morning Branch and 1 tablet in the evening. midodrine 5 2021-09 Yes [id number] 5mg Take 1 Univers mg tablet 0-03 tablet by ity o f 00:00: mouth 2 [place] (two) Medical times Branch daily as needed for Other (LOW BP READINGS). TAKE 1 TABLET BY MOUTH TWICE DAILY FOR SYSTOLIC BLOOD PRESSURE LESS THAN 120 tamsulosin 2021-09 Yes [id number] .4mg Take 1 Univers 0.4 mg 24 0-03 capsule by ity of hr capsule 00:00: mouth in [place] 00 the Medical morning Branch and 1 capsule in the evening. ferrous 2021-09 Yes [id number] 325mg Take 1 Un jeffrey sulfate 0-03 tablet by ity of (FEROSUL) 00:00: mouth in [place] 325 mg (65 00 the Medical mg iron) morning. Branch tablet Sodium 2021-09 Yes [id number] 2{tbl} Take 2 Un jeffrey Chloride 0-03 tablets by ity o f 1,000 mg 00:00: mouth 3 [place] TbSO 00 (three) Medical times Branch daily. sodium 2021-09 Yes [id number] 325mg Take 1 Uni vers bicarbonate 0-03 tablet by ity of 325 mg 00:00: mouth in [place] tablet 00 the Medical morning Branch and 1 tablet in the evening. midodrine 5 2021-09 Yes [id number] 5mg Take 1 Univers mg tablet 0-03 tablet by ity o f 00:00: mouth 2 [place] (two) Medical times Branch daily as needed for Other (LOW BP READINGS). TAKE 1 TABLET BY MOUTH TWICE DAILY FOR SYSTOLIC BLOOD PRESSURE LESS THAN 120 tamsulosin 2021-09 Yes [id number] .4mg Take 1 Univers 0.4 mg 24 0-03 capsule by ity of hr capsule 00:00: mouth in [place] the Medical morning Branch and 1 capsule in the evening. ferrous 2021-09 Yes [id number] 325mg Take 1 Un jeffrey sulfate 0-03 tablet by ity of (FEROSUL) 00:00: mouth in [place] 325 mg (65 00 the Medical mg iron) morning. Branch tablet Sodium 2021-09 Yes [id number] 2{tbl} Take 2 Un jeffrey Chloride 0-03 tablets by ity o f 1,000 mg 00:00: mouth 3 [place] TbSO 00 (three) Medical times Branch daily. sodium 2021-09 Yes [id number] 325mg Take 1 Uni vers bicarbonate 0-03 tablet by ity of 325 mg 00:00: mouth in [place] tablet 00 the Medical morning Branch and 1 tablet in the evening. midodrine 5 2021-09 Yes [id number] 5mg Take 1 Univers mg tablet 0-03 tablet by ity o f 00:00: mouth 2 [place] (two) Medical times Branch daily as needed for Other (LOW BP READINGS). TAKE 1 TABLET BY MOUTH TWICE DAILY FOR SYSTOLIC BLOOD PRESSURE LESS THAN 120 tamsulosin 2021-09 Yes [id number] .4mg Take 1 [facility] 0.4 mg 24 0-03 capsule by ity of hr capsule 00:00: mouth in [place] 00 the Medical morning Branch and 1 capsule in the evening. ferrous 2021-09 Yes [id number] 325mg Take 1 Un jeffrey sulfate 0-03 tablet by ity of (FEROSUL) 00:00: mouth in [place] 325 mg (65 00 the Medical mg iron) morning. Branch tablet Sodium 2021-09 Yes [id number] 2{tbl} Take 2 Un jeffrey Chloride 0-03 tablets by ity o f 1,000 mg 00:00: mouth 3 [place] TbSO 00 (three) Medical times Branch daily. sodium 2021-09 Yes [id number] 325mg Take 1 Uni vers bicarbonate 0-03 tablet by ity of 325 mg 00:00: mouth in [place] tablet 00 the Medical morning Branch and 1 tablet in the evening. midodrine 5 2021-09 Yes [id number] 5mg Take 1 Univers mg tablet 0-03 tablet by ity o f 00:00: mouth 2 [place] 00 (two) Medical times Branch daily as needed for Other (LOW BP READINGS). TAKE 1 TABLET BY MOUTH TWICE DAILY FOR SYSTOLIC BLOOD PRESSURE LESS THAN 120 tamsulosin 2021-09 Yes [id number] .4mg Take 1 [facility] 0.4 mg 24 0-03 capsule by ity of hr capsule 00:00: mouth in [place] 00 the Medical morning Branch and 1 capsule in the evening. ferrous 2021-09 Yes [id number] 325mg Take 1 Un jeffrey sulfate 0-03 tablet by ity of (FEROSUL) 00:00: mouth in [place] 325 mg (65 00 the Medical mg iron) morning. Branch tablet Sodium 2021-09 Yes [id number] 2{tbl} Take 2 Un jeffrey Chloride 0-03 tablets by ity o f 1,000 mg 00:00: mouth 3 [place] TbSO 00 (three) Medical times Branch daily. sodium 2021-09 Yes [id number] 325mg Take 1 Uni vers bicarbonate 0-03 tablet by ity of 325 mg 00:00: mouth in [place] tablet 00 the Medical morning Branch and 1 tablet in the evening. midodrine 5 2021-09 Yes [id number] 5mg Take 1 Univers mg tablet 0-03 tablet by ity o f 00:00: mouth 2 [place] 00 (two) Medical times Branch daily as needed for Other (LOW BP READINGS). TAKE 1 TABLET BY MOUTH TWICE DAILY FOR SYSTOLIC BLOOD PRESSURE LESS THAN 120 tamsulosin 2021-09 Yes [id number] .4mg Take 1 [facility] 0.4 mg 24 0-03 capsule by ity of hr capsule 00:00: mouth in [place] 00 the Medical morning Branch and 1 capsule in the evening. ferrous 2021-09 Yes [id number] 325mg Take 1 Un jeffrey sulfate 0-03 tablet by ity of (FEROSUL) 00:00: mouth in [place] 325 mg (65 00 the Medical mg iron) morning. Branch tablet Sodium 2021-09 Yes [id number] 2{tbl} Take 2 Un jeffrey Chloride 0-03 tablets by ity o f 1,000 mg 00:00: mouth 3 [facility] (three) Medical times Branch daily. sodium 2021-09 Yes [id number] 325mg Take 1 Uni vers bicarbonate 0-03 tablet by ity of 325 mg 00:00: mouth in [place] tablet 00 the Medical morning Branch and 1 tablet in the evening. midodrine 5 2021-09 Yes [id number] 5mg Take 1 Univers mg tablet 0-03 tablet by ity o f 00:00: mouth 2 [place] (two) Medical times Branch daily as needed for Other (LOW BP READINGS). TAKE 1 TABLET BY MOUTH TWICE DAILY FOR SYSTOLIC BLOOD PRESSURE LESS THAN 120 tamsulosin 2021-09 Yes [id number] .4mg Take 1 [facility] 0.4 mg 24 0-03 capsule by ity of hr capsule 00:00: mouth in [place] 00 the Medical morning Branch and 1 capsule in the evening. ferrous 2021-09 Yes [id number] 325mg Take 1 Un jeffrey sulfate 0-03 tablet by ity of (FEROSUL) 00:00: mouth in [place] 325 mg (65 00 the Medical mg iron) morning. Branch tablet ferrous 2021-09 Yes [id number] 325mg Take 1 Un jeffrey sulfate 0-03 tablet by ity of (FEROSUL) 00:00: mouth in [place] 325 mg (65 00 the Medical mg iron) morning. Branch tablet Sodium 2021-09 Yes [id number] 2{tbl} Take 2 Un jeffrey Chloride 0-03 tablets by ity o f 1,000 mg 00:00: mouth 3 [place] TbSO (three) Medical times Branch daily. sodium 2021-09 Yes [id number] 325mg Take 1 Uni vers bicarbonate 0-03 tablet by ity of 325 mg 00:00: mouth in [place] tablet 00 the Medical morning Branch and 1 tablet in the evening. midodrine 5 2021-09 Yes [id number] 5mg Take 1 [facility] mg tablet 0-03 tablet by ity o f 00:00: mouth 2 [place] 00 (two) Medical times Branch daily as needed for Other (LOW BP READINGS). TAKE 1 TABLET BY MOUTH TWICE DAILY FOR SYSTOLIC BLOOD PRESSURE LESS THAN 120 tamsulosin 2021-09 Yes [id number] .4mg Take 1 [facility] 0.4 mg 24 0-03 capsule by ity of hr capsule 00:00: mouth in [place] 00 the Medical morning Branch and 1 capsule in the evening. Sodium 2021-09 Yes [id number] 2{tbl} Take 2 Un jeffrey Chloride 0-03 tablets by ity o f 1,000 mg 00:00: mouth 3 [place] TbSO 00 (three) Medical times Branch daily. ferrous 2021-09 Yes [id number] 325mg Take 1 Un jeffrey sulfate 0-03 tablet by ity of (FEROSUL) 00:00: mouth in [place] 325 mg (65 00 the Medical mg iron) morning. Branch tablet Sodium 2021-09 Yes [id number] 2{tbl} Take 2 Un jeffrey Chloride 0-03 tablets by ity o f 1,000 mg 00:00: mouth 3 [place] TbSO 00 (three) Medical times Branch daily. sodium 2021-09 Yes [id number] 325mg Take 1 Uni vers bicarbonate 0-03 tablet by ity of 325 mg 00:00: mouth in [place] tablet 00 the Medical morning Branch and 1 tablet in the evening. midodrine 5 2021-09 Yes [id number] 5mg Take 1 Univers mg tablet 0-03 tablet by ity o f 00:00: mouth 2 [place] 00 (two) Medical times Branch daily as needed for Other (LOW BP READINGS). TAKE 1 TABLET BY MOUTH TWICE DAILY FOR SYSTOLIC BLOOD PRESSURE LESS THAN 120 tamsulosin 2021-09 Yes [id number] .4mg Take 1 [facility] 0.4 mg 24 0-03 capsule by ity of hr capsule 00:00: mouth in [place] 00 the Medical morning Branch and 1 capsule in the evening. sodium 2021-09 Yes [id number] 325mg Take 1 Uni vers bicarbonate 0-03 tablet by ity of 325 mg 00:00: mouth in [place] tablet 00 the Medical morning Branch and 1 tablet in the evening. ferrous 2021-09 Yes [id number] 325mg Take 1 Un jeffrey sulfate 0-03 tablet by ity of (FEROSUL) 00:00: [place] 325 mg (65 00 the Medical mg iron) morning. Branch tablet Sodium 2021-09 Yes [id number] 2{tbl} Take 2 Un jeffrey Chloride 0-03 tablets by ity o f 1,000 mg 00:00: mouth 3 [place] TbSO 00 (three) Medical times Branch daily. sodium 2021-09 Yes [id number] 325mg Take 1 Uni vers bicarbonate 0-03 tablet by ity of 325 mg 00:00: mouth in [place] tablet 00 the Medical morning Branch and 1 tablet in the evening. midodrine 2021-09 Yes [id number] 5mg Take 1 [facility] mg tablet 0-03 tablet by ity o f 00:00: mouth 2 [place] (two) Medical times Branch daily as needed for Other (LOW BP READINGS). TAKE 1 TABLET BY MOUTH TWICE DAILY FOR SYSTOLIC BLOOD PRESSURE LESS THAN 120 tamsulosin 2021-09 Yes [id number] .4mg Take 1 [facility] 0.4 mg 24 0-03 capsule by ity of hr capsule 00:00: mouth in [place] 00 the Medical morning Branch and 1 capsule in the evening. ferrous 2021-09 Yes [id number] 325mg Take 1 Un jeffrey sulfate 0-03 tablet by ity of (FEROSUL) 00:00: [place] 325 mg (65 00 the Medical mg iron) morning. Branch tablet midodrine 2021-09 Yes [id number] 5mg Take 1 [facility] mg tablet 0-03 tablet by ity o f 00:00: mouth 2 [place] (two) Medical times Branch daily as needed for Other (LOW BP READINGS). TAKE 1 TABLET BY MOUTH TWICE DAILY FOR SYSTOLIC BLOOD PRESSURE LESS THAN 120 Sodium 2021-09 Yes [id number] 2{tbl} Take 2 Un jeffrey Chloride 0-03 tablets by ity o f 1,000 mg 00:00: mouth 3 [place] TbSO 00 (three) Medical times Branch daily. sodium 2021-09 Yes [id number] 325mg Take 1 Uni vers bicarbonate 0-03 tablet by ity of 325 mg 00:00: mouth in [place] tablet 00 the Medical morning Branch and 1 tablet in the evening. midodrine 5 2021-09 Yes [id number] 5mg Take 1 [facility] mg tablet 0-03 tablet by ity o f 00:00: mouth 2 [place] 00 (two) Medical times Branch daily as needed for Other (LOW BP READINGS). TAKE 1 TABLET BY MOUTH TWICE DAILY FOR SYSTOLIC BLOOD PRESSURE LESS THAN 120 tamsulosin 2021-09 Yes [id number] .4mg Take 1 [facility] 0.4 mg 24 0-03 capsule by ity of hr capsule 00:00: mouth in [place] 00 the Medical morning Branch and 1 capsule in the evening. ferrous 2021-09 Yes [id number] 325mg Take 1 Un jeffrey sulfate 0-03 tablet by ity of (FEROSUL) 00:00: [place] 325 mg (65 00 the Medical mg iron) morning. Branch tablet tamsulosin 2021-09 Yes [id number] .4mg Take 1 [facility] 0.4 mg 24 0-03 capsule by ity of hr capsule 00:00: mouth in [place] 00 the Medical morning Branch and 1 capsule in the evening. Sodium 2021-09 Yes [id number] 2{tbl} Take 2 Un jeffrey Chloride 0-03 tablets by ity o f 1,000 mg 00:00: mouth 3 [place] TbSO 00 (three) Medical times Branch daily. sodium 2021-09 Yes [id number] 325mg Take 1 Uni vers bicarbonate 0-03 tablet by ity of 325 mg 00:00: mouth in [place] tablet 00 the Medical morning Branch and 1 tablet in the evening. midodrine 5 2021-09 Yes [id number] 5mg Take 1 [facility] mg tablet 0-03 tablet by ity o f 00:00: mouth 2 [place] 00 (two) Medical times Branch daily as needed for Other (LOW BP READINGS). TAKE 1 TABLET BY MOUTH TWICE DAILY FOR SYSTOLIC BLOOD PRESSURE LESS THAN 120 tamsulosin 2021-09 Yes [id number] .4mg Take 1 [facility] 0.4 mg 24 0-03 capsule by ity of hr capsule 00:00: mouth in [place] 00 the Medical morning Branch and 1 capsule in the evening. ferrous 2021-09 Yes [id number] 325mg Take 1 Un jeffrey sulfate 0-03 tablet by ity of (FEROSUL) 00:00: [place] 325 mg (65 00 the Medical mg iron) morning. Branch tablet Sodium 2021-09 Yes [id number] 2{tbl} Take 2 Un jeffrey Chloride 0-03 tablets by ity o f 1,000 mg 00:00: mouth 3 [place] TbSO 00 (three) Medical times Branch daily. sodium 2021-09 Yes [id number] 325mg Take 1 Uni vers bicarbonate 0-03 tablet by ity of 325 mg 00:00: mouth in [place] tablet 00 the Medical morning Branch and 1 tablet in the evening. midodrine 5 2021-09 Yes [id number] 5mg Take 1 [facility] mg tablet 0-03 tablet by ity o f 00:00: mouth 2 [place] (two) Medical times Branch daily as needed for Other (LOW BP READINGS). TAKE 1 TABLET BY MOUTH TWICE DAILY FOR SYSTOLIC BLOOD PRESSURE LESS THAN 120 tamsulosin 2021-09 Yes [id number] .4mg Take 1 [facility] 0.4 mg 24 0-03 capsule by ity of hr capsule 00:00: mouth in [place] 00 the Medical morning Branch and 1 capsule in the evening. ferrous 2021-09 Yes [id number] 325mg Take 1 Un jeffrey sulfate 0-03 tablet by ity of (FEROSUL) 00:00: mouth [place] 325 mg (65 00 the Medical mg iron) morning. Branch tablet Sodium 2021-09 Yes [id number] 2{tbl} Take 2 Un jeffrey Chloride 0-03 tablets by ity o f 1,000 mg 00:00: mouth 3 [place] TbSO 00 (three) Medical times Branch daily. sodium 2021-09 Yes [id number] 325mg Take 1 Uni vers bicarbonate 0-03 tablet by ity of 325 mg 00:00: mouth in [place] tablet 00 the Medical morning Branch and 1 tablet in the evening. midodrine 5 2021-09 Yes [id number] 5mg Take 1 [facility] mg tablet 0-03 tablet by ity o f 00:00: mouth 2 [place] (two) Medical times Branch daily as needed for Other (LOW BP READINGS). TAKE 1 TABLET BY MOUTH TWICE DAILY FOR SYSTOLIC BLOOD PRESSURE LESS THAN 120 tamsulosin 2021-09 Yes [id number] .4mg Take 1 [facility] 0.4 mg 24 0-03 capsule by ity of hr capsule 00:00: mouth in [place] 00 the Medical morning Branch and 1 capsule in the evening. ferrous 2021-09 Yes [id number] 325mg Take 1 Un jeffrey sulfate 0-03 tablet by ity of (FEROSUL) 00:00: mouth [place] 325 mg (65 00 the Medical mg iron) morning. Branch tablet Sodium 2021-09 Yes [id number] 2{tbl} Take 2 Un jeffrey Chloride 0-03 tablets by ity o f 1,000 mg 00:00: mouth 3 [place] TbSO 00 (three) Medical times Branch daily. sodium 2021-09 Yes [id number] 325mg Take 1 Uni vers bicarbonate 0-03 tablet by ity of 325 mg 00:00: mouth in [place] tablet 00 the Medical morning Branch and 1 tablet in the evening. midodrine 5 2021-09 Yes [id number] 5mg Take 1 [facility] mg tablet 0-03 tablet by ity o f 00:00: mouth 2 [place] (two) Medical times Branch daily as needed for Other (LOW BP READINGS). TAKE 1 TABLET BY MOUTH TWICE DAILY FOR SYSTOLIC BLOOD PRESSURE LESS THAN 120 tamsulosin 2021-09 Yes [id number] .4mg Take 1 [facility] 0.4 mg 24 0-03 capsule by ity of hr capsule 00:00: mouth in [place] 00 the Medical morning Branch and 1 capsule in the evening. ferrous 2021-09 Yes [id number] 325mg Take 1 Un jeffrey sulfate 0-03 tablet by ity of (FEROSUL) 00:00: mouth [place] 325 mg (65 00 the Medical mg iron) morning. Branch tablet Sodium 2021-09 Yes [id number] 2{tbl} Take 2 Un jeffrey Chloride 0-03 tablets by ity o f 1,000 mg 00:00: mouth 3 [place] TbSO 00 (three) Medical times Branch daily. sodium 2021-09 Yes [id number] 325mg Take 1 Uni vers bicarbonate 0-03 tablet by ity of 325 mg 00:00: mouth in [place] tablet 00 the Medical morning Branch and 1 tablet in the evening. midodrine 5 2021-09 Yes [id number] 5mg Take 1 [facility] mg tablet 0-03 tablet by ity o f 00:00: mouth 2 [place] 00 (two) Medical times Branch daily as needed for Other (LOW BP READINGS). TAKE 1 TABLET BY MOUTH TWICE DAILY FOR SYSTOLIC BLOOD PRESSURE LESS THAN 120 tamsulosin 2021-09 Yes [id number] .4mg Take 1 [facility] 0.4 mg 24 0-03 capsule by ity of hr capsule 00:00: mouth in [place] 00 the Medical morning Branch and 1 capsule in the evening. ferrous 2021-09 Yes [id number] 325mg Take 1 Un jeffrey sulfate 0-03 tablet by ity of (FEROSUL) 00:00: mouth [place] 325 mg (65 00 the Medical mg iron) morning. Branch tablet Sodium 2021-09 Yes [id number] 2{tbl} Take 2 Un jeffrey Chloride 0-03 tablets by ity o f 1,000 mg 00:00: mouth 3 [place] TbSO 00 (three) Medical times Branch daily. sodium 2021-09 Yes [id number] 325mg Take 1 Uni vers bicarbonate 0-03 tablet by ity of 325 mg 00:00: mouth in [place] tablet 00 the Medical morning Branch and 1 tablet in the evening. midodrine 5 2021-09 Yes [id number] 5mg Take 1 [facility] mg tablet 0-03 tablet by ity o f 00:00: mouth 2 [place] 00 (two) Medical times Branch daily as needed for Other (LOW BP READINGS). TAKE 1 TABLET BY MOUTH TWICE DAILY FOR SYSTOLIC BLOOD PRESSURE LESS THAN 120 tamsulosin 2021-09 Yes [id number] .4mg Take 1 [facility] 0.4 mg 24 0-03 capsule by ity of hr capsule 00:00: mouth in [place] 00 the Medical morning Branch and 1 capsule in the evening. ferrous 2021-09 Yes [id number] 325mg Take 1 Un jeffrey sulfate 0-03 tablet by ity of (FEROSUL) 00:00: mouth [place] 325 mg (65 00 the Medical mg iron) morning. Branch tablet Sodium 2021-09 Yes [id number] 2{tbl} Take 2 Un jeffrey Chloride 0-03 tablets by ity o f 1,000 mg 00:00: mouth 3 [place] TbSO 00 (three) Medical times Branch daily. sodium 2021-09 Yes [id number] 325mg Take 1 Uni vers bicarbonate 0-03 tablet by ity of 325 mg 00:00: mouth in [place] tablet 00 the Medical morning Branch and 1 tablet in the evening. midodrine 5 2021-09 Yes [id number] 5mg Take 1 [facility] mg tablet 0-03 tablet by ity o f 00:00: mouth 2 (two) Medical times [place] daily as needed for Other (LOW BP READINGS). TAKE 1 TABLET BY MOUTH TWICE DAILY FOR SYSTOLIC BLOOD PRESSURE LESS THAN 120 tamsulosin 2021-09 Yes [id number] .4mg Take 1 [facility] 0.4 mg 24 0-03 capsule by ity of hr capsule 00:00: mouth in [place] 00 the Medical morning Branch and 1 capsule in the evening. ferrous 2021-09 Yes [id number] 325mg Take 1 Un jeffrey sulfate 0-03 tablet by ity of (FEROSUL) 00:00: mouth [place] 325 mg (65 00 the Medical mg iron) morning. Branch tablet Sodium 2021-09 Yes [id number] 2{tbl} Take 2 Un jeffrey Chloride 0-03 tablets by ity o f 1,000 mg 00:00: mouth 3 [place] Tb[place] (three) Medical times Branch daily. sodium 2021-09 Yes [id number] 325mg Take 1 Uni vers bicarbonate 0-03 tablet by ity of 325 mg 00:00: mouth in [place] tablet 00 the Medical morning Branch and 1 tablet in the evening. midodrine 5 2021-09 Yes [id number] 5mg Take 1 [facility] mg tablet 0-03 tablet by ity o f 00:00: mouth 2 [place] (two) Medical times [place] daily as needed for Other (LOW BP READINGS). TAKE 1 TABLET BY MOUTH TWICE DAILY FOR SYSTOLIC BLOOD PRESSURE LESS THAN 120 tamsulosin 2021-09 Yes [id number] .4mg Take 1 [facility] 0.4 mg 24 0-03 capsule by ity of hr capsule 00:00: mouth in [place] 00 the Medical morning Branch and 1 capsule in the evening. ferrous 2021-09 Yes [id number] 325mg Take 1 Un jeffrey sulfate 0-03 tablet by ity of (FEROSUL) 00:00: mouth [place] 325 mg (65 00 the Medical mg iron) morning. Branch tablet Sodium 2021-09 Yes [id number] 2{tbl} Take 2 Un jeffrey Chloride 0-03 tablets by ity o f 1,000 mg 00:00: mouth 3 [place] TbSO 00 (three) Medical times Branch daily. tamsulosin 2021-09 No [id number] .4mg Take 1 [facility] 0.4 mg 24 0-03 10-03 capsule by ity of hr capsule 00:00: 00:00 mouth in [place] 00 :00 the Medical morning. Branch tamsulosin 2021-09- No [id number] .4mg Take 1 [facility] 0.4 mg 24 0-03 10-03 capsule by ity of hr capsule 00:00: 00:00 mouth in [place] 00 :00 the Medical morning. Branch tamsulosin 2021-09- No [id number] .4mg Take 1 [facility] 0.4 mg 24 0-03 10- capsule by ity of hr capsule 00:00: 00:00 mouth in [place] 00 :00 the Medical morning. Branch tamsulosin 2021-09- No [id number] .4mg Take 1 [facility] 0.4 mg 24 0-03 10- capsule by ity of hr capsule 00:00: 00:00 mouth in [place] 00 :00 the Medical morning. Branch tamsulosin 2021-09 No [id number] .4mg Take 1 [facility] 0.4 mg 24 0-03 10- capsule by ity of hr capsule 00:00: 00:00 mouth in [place] 00 :00 the Medical morning. Branch midodrine 5 2021- No 5mg Take 5 mg [facility] mg tablet 05-03 by mouth 2 ity of 00:00: 00:00 (two) [place] 00 :00 times Medical daily as Branch needed. TAKE 1 TABLET BY MOUTH TWICE DAILY FOR SYSTOLIC BLOOD PRESSURE OVER 120 Sodium 2021- No 2{tbl} Take 2 Univer s Chloride 05-03 tablets by ity of 1,000 mg 00:00: 00:00 mouth 3 [place] TbSO 00 :00 (three) Medical times Branch daily. midodrine 5 2021- No 5mg Take 5 mg [facility] mg tablet 05-03 by mouth 2 ity of 00:00: 00:00 (two) [place] 00 :00 times Medical daily as Branch [...] of 1,000 mg 00:00: 00:00 mouth 3 [place] TbSO 00 :00 (three) Medical times Branch daily. midodrine 5 2021- No 5mg Take 5 mg [facility] mg tablet 05-03 by mouth 2 ity of 00:00: 00:00 (two) [place] 00 :00 times Medical daily as Branch needed. TAKE 1 TABLET BY MOUTH TWICE DAILY FOR SYSTOLIC BLOOD PRESSURE OVER 120 Sodium 2021- No 2{tbl} Take 2 Univer s Chloride 05-03 tablets by ity of 1,000 mg 00:00: 00:00 mouth 3 [place] TbSO 00 :00 (three) Medical times Branch daily. midodrine 5 2021- No 5mg Take 5 mg [facility] mg tablet 05-03 by mouth 2 ity of 00:00: 00:00 (two) [place] 00 :00 times Medical daily as Branch [...] s gram/dose 00 Medical powder Branch polyethylen 2021-0 Yes 17g Take 17 g U nivers [...] s gram/dose 00 Medical powder Branch polyethylen 2021-0 Yes 17g Take 17 g U nivers e glycol 8-22 by mouth ity of 3350 17 00:00: [place]. [place] gram/dose 00 Medical powder Branch polyethylen 2021-0 Yes 17g Take 17 g U nivers e glycol 8-22 by mouth ity of 3350 17 00:00: [place] needed. [place] gram/dose 00 Medical powder Branch polyethylen 2021-0 Yes 17g Take 17 g U nivers e glycol 8-22 by mouth ity of 3350 17 00:00: as needed. [place] gram/dose 00 Medical powder Branch polyethylen 2021-0 Yes 17g Take 17 g U nivers e glycol 8-22 by mouth ity of 3350 17 00:00: [place]. [place] gram/dose 00 Medical powder Branch FEROSUL 325 2021-2021- No 325mg Take 325 [facility] mg (65 [...] and 325 mg in the evening. tamsulosin 2021-2021- No .4mg Take 0.4 Un jeffrey 0.4 mg 24 8-22 10-03 mg by ity of hr capsule 00:00: 00:00 mouth in [place] 00 :00 the Medical morning. Branch DEANOSSARAH 325 2022-0 2022- No 325mg Take 325 [...] [place] :[place] the Medical morning. Branch DEANOSSARAH 325 2022-0 2022- No 325mg Take 325 [...] [place] :00 the Medical morning. Branch DEANOSUL 325 2022-0 2022- No 325mg Take 325 [...] :00 the Medical morning. Branch FEROSUL 325 2021-2021- No 325mg Take 325 [facility] mg (65 mg 8- 10-03 mg by ity of iron) 00:00: 00:00 mouth in [place] tablet 00 :00 the Medical morning. Branch sodium 2021-0 2021- No 325mg Take 325 Unive rs bicarbonate 8- 10-03 mg by ity of 325 mg 00:00: 00:00 mouth in [place] tablet 00 :00 the Medical morning Branch and 325 mg in the evening. tamsulosin 2021-2021- No .4mg Take 0.4 Un jeffrey 0.4 mg 24 8- 10-03 mg by ity of hr capsule 00:00: 00:00 mouth in [place] 00 :00 the Medical morning. Branch sodium 2021-2021- No 650mg Q.5D Take [address] [facility] bicarbonate 04-29-18 tablets [facility] 325 MG 00:00: 23:59 (650 mg Medical tablet 00 :00 total) by Center mouth 2 (two) times daily for 30 days. sodium 2021-0 2021- No 650mg Q.5D Take [address] [facility] bicarbonate 04-29-18 tablets [facility] 325 MG 00:00: 23:59 (650 mg Medical tablet 00 :00 total) by Center mouth 2 (two) times daily for 30 days. sodium 2021-0 2022- No 2g Take [address] [facility] chloride 1 8-10 08-10 tablets (2 Charlene kes gram tablet 00:00: 23:59 g total) M edical 00 :00 by mouth 3 Center (three) times daily with meals. sodium 2021-0 2022- No 2g Take [address] [facility] chloride 1 8-10 08-10 tablets (2 Charlene kes gram tablet 00:00: 23:59 g total) M edical 00 :00 by mouth 3 Center (three) times daily with meals. ferrous 2021-0 2022- No 325mg QD Take [address] [facility] sulfate 325 04-19-09 tablet [facility] (65 FE) MG 00:00: 23:59 (325 mg Med ical tablet 00 :00 total) by Center mouth daily. ferrous 2-0 3- No 325mg QD Take [address] [facility] sulfate 325 8-09 08-09 tablet [facility] (65 FE) MG 00:00: 23:59 (325 mg Med ical tablet 00 :00 total) by Center mouth daily. tamsulosin 2021-0 2021- No .4mg QD Take [address] [facility] (FLOMAX) 04-19 capsule [facility] 0.4 mg Cap 00:00: 23:59 (0.4 mg Med ical 24 hr 00 :00 total) by Center capsule mouth daily for 30 days. tamsulosin 2021-0 2021- No .4mg QD Take [address] [facility] (FLOMAX) 04-19 capsule [facility] 0.4 mg Cap 00:00: 23:59 (0.4 mg Med ical 24 hr 00 :00 total) by Center capsule mouth daily for 30 days. sodium 2021-0 2021- No 1g Take [address] [facility] chloride 1 04-19 tablet (1 Patricia es gram tablet 00:00: 00:00 g total) M edical 00 :00 by mouth 3 Center (three) times daily with meals. sodium 2021-0 2021- No 1g Take [address] [facility] chloride 1 04-19 tablet (1 Patricia es gram tablet 00:00: 00:00 g total) M edical 00 :00 by mouth 3 Center (three) times daily with meals. polyethylen 2021-0 2021- No 17g Take [address] [facility] e glycol 04-18 by mouth [facility] (GLYCOLAX) 00:00: 23:59 daily as Me dical 17 gram 00 :00 needed Center packet (Constipat ion) for up to 3 days. polyethylen 2021-0 2021- No 17g Take [address] [facility] e glycol 04-18 by mouth [facility] (GLYCOLAX) 00:00: 23:59 daily as Me dical 17 gram 00 :00 needed Center packet (Constipat ion) for up to 3 days. sodium 2021-0 2021- No 1300mg Q.5D Take [address] [facility] bicarbonate 04-18 tablets [facility] 650 MG 00:00: 00:00 (1,300 mg Medic al tablet 00 :00 total) by Center mouth 2 (two) times daily for 90 days. sodium 2-0 2021- No 1300mg Q.5D Take [address] [facility] bicarbonate 04-18 tablets [facility] 650 MG 00:00: 00:00 (1,300 mg Medic al tablet 00 :00 total) by Center mouth 2 (two) times daily for 90 days. Vital Signs Vital Name Observation Time Observation Value Comments Source Systolic blood 2022-09-14 17:44:00 118 mm[Hg] Univer sity of pressure [place] [facility] [place] Diastolic blood 2022-09-14 17:44:00 76 mm[Hg] Unive rsity of [facility] Heart rate 2022-09-14 17:44:00 73 /min Universi ty of [place] [facility] [place] Body temperature 2022-09-14 17:44:00 35.61 Linda Univ ersity [facility] Respiratory rate 2022-09-14 17:44:00 18 /min Univ ersity of [facility] Body height 2022-09-14 17:44:00 177.8 cm Universi ty of [place] [facility] [place] Body weight 2022-09-14 17:44:00 65.59 kg Universi ty of [place] [facility] BMI 2022-09-14 17:44:00 20.75 kg/m2 [facility]i ty [facility] [place] [facility] Oxygen saturation in 2022-09-14 17:44:00 99 /min University of Arterial blood by [facility] Pulse oximetry Branch Systolic blood 2022-08-22 21:36:00 156 mm[Hg] Univer sity of [facility] [place] Diastolic blood 2022-08-22 21:36:00 93 mm[Hg] Unive rsity of [facility] Heart rate 2022-08-22 21:36:00 77 /min Universi ty [facility] [place] [facility] Body temperature 2022-08-22 21:35:00 35.94 Linda Univ ersity [facility] Branch Respiratory rate 2022-08-22 21:35:00 18 /min Univ ersity [facility] Body height 2022-08-22 21:35:00 177.8 cm Universi ty [facility] [place] [facility] Body weight 2022-08-22 21:35:00 68.04 kg [facility]i ty [facility] [place] [facility] BMI 2022-08-22 21:35:00 21.52 kg/m2 [facility] [place] [facility] Oxygen saturation in 2022-08-22 21:35:00 99 /min University of Arterial blood by [facility] Pulse oximetry Branch Systolic blood 2022-06-13 18:18:00 134 mm[Hg] Univer sity of pressure [facility] Diastolic blood 2022-06-13 18:18:00 81 mm[Hg] Unive rsity of [facility] Heart rate 2022-06-13 18:18:00 83 /min Universi ty [facility] Body temperature 2022-06-13 18:18:00 36.44 Linda [facility] Respiratory rate 2022-06-13 18:18:00 18 /min [facility] Body height 2022-06-13 18:18:00 177.8 cm Universi ty [facility] Body weight 2022-06-13 18:18:00 63.504 kg Universi ty [facility] BMI 2022-06-13 18:18:00 20.09 kg/m2 Universi [facility] Oxygen saturation in 2022-06-13 18:18:00 100 /min [facility] Arterial blood by [facility] Pulse oximetry Branch HEIGHT 2022-04-07 00:04:00 177.8 cm WEIGHT 2022-04-07 00:04:00 61.236 kg HEIGHT 2022-04-07 00:04:00 177.8 cm WEIGHT 2022-04-07 00:04:00 61.236 kg HEIGHT 2022-04-07 00:04:00 177.8 cm WEIGHT 2022-04-07 00:04:00 61.236 kg Systolic blood 2022-04-28 23:48:00 132 mm[Hg] [facility] Diastolic blood 2022-04-28 23:48:00 74 mm[Hg] [facility] S [facility] Heart rate 2022-04-28 23:48:00 85 /min [facility] Body temperature 2022-04-28 23:48:00 37.56 Linda [facility] Respiratory rate 2022-04-28 23:48:00 16 /min [facility] Oxygen saturation in 2022-04-28 23:48:00 99 /min [facility] Arterial blood by Medical nter Pulse oximetry Body height 2022-04-07 00:04:00 177.8 cm [facility] Body weight 2022-04-07 00:04:00 61.236 kg [facility] BMI 2022-04-07 00:04:00 19.37 kg/m2 [facility] Procedures Procedure Date / Time Performing Clinician Source Performed HOME HEALTH - OTHER 2022-09-20 06:01:00 [facility] Name Medical Branch HOME HEALTH - OTHER 2022-08-31 06:01:00 [facility] Name Medical [place] POCT URINALYSIS AUTO 2022-08-22 21:53:00 Brown Adame [facility] Medical Branch PATIENT QUESTIONNAIRE 2022-08-22 06:01:00 Doctor Dede [facility] Name Medical Branch HOME HEALTH - OTHER 2022-08-11 06:01:00 Doctor [facility] Name Medical [place] HOME HEALTH 485 2022-07-02 05:01:00 Doctor Dede, [facility] Name Medical [place] CONSENT/REFUSAL FOR 2022-06-13 17:45:35 Doctor [facility] DIAGNOSIS AND TREATMENT [place] [facility] [place] SARS-COV2/RT-PCR ([facility] & 2022-04-29 00:59:00 Kaleb Velasquez [facility] REF LABS) Center CBC W/PLT COUNT & AUTO 2022-04-29 00:57:00 [facility] COMPREHENSIVE METABOLIC 2022-04-29 00:57:[address] [facility]EL Center MAGNESIUM 2022-04-29 00:57:00 [facility]OT[facility]/INR 2022-04-29 00:57:00 Velasquez [facility] PT/APTT 2022-04-29 00:57:00 Velasquez [facility] TYPE AND SCREEN, 2022-04-29 00:57:00 [facility] CBC W/PLT COUNT & AUTO 2022-04-29 00:57:00 Kaleb Velasquez [facility] Center US RENAL COMPLETE 2022-04-20 09:30:00 Gaston Doritahannah Marie [facility] BASIC METABOLIC PANEL 2022-04-20 04:29:00 Dorita Feldman [facility] LIMITED 2D ECHOCARDIOGRAM 2022-04-19 15:04:14 Dorita Feldman id [facility] CORTISOL 2022-04-19 03:28:00 Dorita Feldman [facility] PROTEIN ELECTROPHORESIS, 2022-04-18 20:29:00 Dorita Feldman [facility] KAPPA / LAMBDA LIGHT 2022-04-18 20:29:00 Dorita Feldman [facility] SERUM Center MISCELLANEOUS LAB ORDER 2022-04-18 19:32:00 Brandi [facility]ales [facility] W[facility] PULSED DOPPLER 2022-04-18 18:41:46 Dorita Feldman [facility] OSMOLALITY, SERUM 2022-04-18 10:38:00 Gaston [facility] CHLORIDE, RANDOM URINE 2022-04-18 10:32:00 [facility] SODIUM, RANDOM URINE 2022-04-18 10:32:00 Dorita Feldman [facility] OSMOLALITY, URINE 2022-04-18 10:32:00 Gaston [facility] CALCIUM, IONIZED 2022-04-18 04:40:00 [facility] COMPREHENSIVE METABOLIC 2022-04-18 04:40:00 [facility] PANEL Center MAGNESIUM 2022-04-18 04:40:00 [facility] PHOSPHORUS 2022-04-18 04:40:00 [facility] CBC W/PLT COUNT & AUTO 2022-04-18 04:40:00 [facility] BLOOD GAS, VENOUS 2022-04-18 04:40:00 [facility] CBC W/PLT COUNT & AUTO 2022-04-18 04:40:00 [facility] SARS-COV2/RT-PCR ([facility] & 2022-04-17 16:59:00 Brandi Rosales [facility] REF LABS) [facility] SODIUM, RANDOM URINE 2022-04-17 05:49:00 Dorita Feldman CH I [facility] CHLORIDE, RANDOM URINE 2022-04-17 05:49:00 Gaston Doritahannah Marie [facility] OSMOLALITY, URINE 2022-04-17 05:49:00 [facility]aston [facility] CALCIUM, IONIZED 2022-04-17 04:56:00 [facility] COMPREHENSIVE METABOLIC 2022-04-17 04:56:00 [facility] PANEL Center MAGNESIUM 2022-04-17 04:56:00 [facility] PHOSPHORUS 2022-04-17 04:56:00 [facility] CBC W/PLT COUNT & AUTO 2022-04-17 04:56:00 [facility] CBC W/PLT COUNT & AUTO 2022-04-17 04:56:00 [facility] CBC W/PLT COUNT & AUTO 2022-04-16 04:49:00 Gaston Dorita paradise [facility] BASIC METABOLIC PANEL 2022-04-16 04:49:00 Dorita Feldman [facility] CORTISOL 2022-04-16 04:49:00 Gaston, Dorita paradise [facility] CBC W/PLT COUNT & AUTO 2022-04-16 04:49:00 Gaston Doritahannah Marie [facility] BASIC METABOLIC PANEL 2022-04-15 04:47:00 Dorita Feldman [facility] SODIUM 2022-04-14 18:31:00 Dorita Feldman [facility] SARS-COV2/RT-PCR ([facility] & 2022-04-14 18:24:00 Brandi Rosales [facility] REF LABS) [facility] ALPHA FETOPROTEIN (AFP), 2022-04-14 14:13:00 Jeff Banner [facility] TUMOR MARKER [facility] CARBOHYDRATE ANTIGEN 19-9 2022-04-14 14:13:00 Chika Aguilar [facility] ([place] 19-9) [facility] URINE CULTURE 2022-04-13 23:59:00 Gaston Dorita paradise [facility] URINALYSIS W/ REFLEX 2022-04-13 23:59:00 Dorita Feldman [facility] URINE CULTURE Center CT ABDOMEN/PELVIS WITH IV 2022-04-13 14:45:00 [facility] COMPREHENSIVE METABOLIC 2022-04-13 03:37:00 Dorita Feldman [facility] PANEL Center CBC W/PLT COUNT & AUTO 2022-04-13 03:37:00 Gaston Dorita [facility] DIFFERENTIAL Center CBC W/PLT COUNT & AUTO 2022-04-13 03:37:00 Gaston [facility] DIFFERENTIAL Center CYTOLOGY 2022-04-12 17:05:00 Marcus Mcnally [facility] PSA 2022-04-12 10:56:00 Brandi Rosales [facility] BASIC METABOLIC PANEL 2022-04-12 04:12:00 Dorita Feldman [facility] BASIC METABOLIC PANEL 2022-04-11 22:25:00 Dorita Feldman [facility] SODIUM, RANDOM URINE 2022-04-11 22:19:00 Dorita Feldman [facility] OSMOLALITY, URINE 2022-04-11 22:18:00 Dorita Feldman [facility] CBC W/PLT COUNT & AUTO 2022-04-10 05:41:00 Be Miller [facility] CBC W/PLT COUNT & AUTO 2022-04-10 05:41:[address] [facility] BASIC METABOLIC PANEL 2022-04-10 05:40:00 Be Miller CH I [facility] CT ABDOMEN/PELVIS WITHOUT 2022-04-09 11:45[facility]00 [facility] URINALYSIS W/ MICROSCOPIC 2022-04-08 21:46:00 [facility] Charlotteaime castro [facility] US DRAINAGE WITH CATH 2022-04-08 17:56:00 [facility] CYT[facility] 2022-04-08 17:32:00 [facility] IRON, TIBC, % SAT. 2022-04-08 04:31:00 [facility] (WITHOUT FERRITIN) Center FERRITIN 2022-04-08 04:31:00 Gaston [facility] COMPREHENSIVE METABOLIC 2022-04-08 04:31:00 Dorita Feldman paradise [facility] PANEL Center CBC W/PLT COUNT & AUTO 2022-04-08 04:31:00 Gaston [facility] CBC W/PLT COUNT & AUTO 2022-04-08 04:31:00 Dorita Feldman [facility] US RENAL COMPLETE 2022-04-08 00:52:00 RaJaime dillon [facility] BASIC METABOLIC PANEL 2022-04-07 04:22:00 Juancarlos Magana [facility] HEPATIC FUNCTION PANEL 2022-04-07 04:22:00 Juancarlos Magana [facility] MAGNESIUM 2022-04-07 04:22:00 Juancarlos Magana [facility] PHOSPHORUS 2022-04-07 04:22:00 Juancarlos Magana [facility] PROTHROMBIN TIME/INR 2022-04-07 04:22:00 Juancarlos Magana [facility] CBC W/PLT COUNT & AUTO 2022-04-07 04:22:00 Juancarlos Magana [facility] DIFFERENTIAL Center TYPE AND SCREEN, 2022-04-07 04:22:00 Juancarlos Magana [facility] AUTOMATED [place] CBC W/PLT COUNT & AUTO 2022-04-07 04:22:00 Juancarlos Magana [facility] DIFFERENTIAL Center Plan of Care Planned Activity Planned Date Details Comments Source Future Scheduled 2023-04-[address] [facility] Test 00:00:00 [facility] Screening (12+) [code = Tobacco Cessation Counseling and Screening (12+)] Future Scheduled 2023-04-[address] [facility] Test 00:00:00 [facility] Cent[facility] r Screening (12+) [code = Tobacco Cessation Counseling and Screening (12+)] Future Scheduled 2022-09-[address] [facility] Test 00:00:00 (12+) [code = [facility] Center DEPRESSION SCREENING (12+)] Future Scheduled 2022-09-11 FALLS RISK SCREENING [facility] Test 00:00:00 [code = FALLS RISK Medical C enter SCREENING] Future Scheduled 2022-05-12 INFLUENZA VACCINE (#1) [facility]00 [code = INFLUENZA Medical Ce nter VACCINE (#1)] Future Scheduled 2022-05-12 INFLUENZA VACCINE (#1) C [...] [facility] Test 00:00:00 2) [code = SHINGLES [facility] Center VACCINES (1 of 2)] Future Scheduled 2004-01-05 SHINGLES VACCINES ([address] [facility] Test 00:00:00 2) [facility] 2[facility] Future Scheduled 1973 DTAP/TDAP/TD VACCINES [facility] 00:00:00 (1 - Tdap) [code = Medical C enter DTAP/TDAP/TD VACCINES (1 - Tdap)] Future Scheduled 1973 DTAP/TDAP/TD VACCINES [facility] 00:00:00 (1 - Tdap) [code = Medical C enter DTAP/TDAP/TD VACCINES (1 - Tdap)] Future Scheduled 1972-01-05 HEPATITIS C [facility]CREENING [facility] 00:00:00 [code = HEPATITIS C Medical Center SCREENING] Future Scheduled 1972-01-05 HEPATITIS C [facility]CRE[facility]ING [facility] 00:00:00 [code = HEPATITIS C Medical Center SCREENING] Future Scheduled 1960-01-05 PNEUMOCOCCAL 65+ YRS ([address] [facility] Test 00:00:00 - PCV) [code = Medical Cente r PNEUMOCOCCAL 65+ YRS (1 - PCV)] Future Scheduled 1960-01-05 PNEUMOCOCCAL 65+ YRS ([address] [facility] Test 00:00:00 - PCV) [code = Medical Cente r PNEUMOCOCCAL 65+ YRS (1 - PCV)] Future Scheduled 1954 COVID-19 VACCINE (#1) [facility] 00:00:00 [code = COVID-[address] VACCINE (#1)] Future Scheduled 1955 COVID-19 VACCINE (#1) [facility] 00:00:00 [code = COVID-[address] VACCINE (#1)] Future Scheduled 1954 CT Colonography (combo) [facility] Test 00:00:00 [code = CT Colonography [facility] Center (combo)] Future Scheduled 1954 Screening for malignant [facility] Test 00:00:00 neoplasm of colon Medical Ce nter (procedure) [code = 790363280] Future Scheduled 1954 Screening for malignant [facility] Test 00:00:00 neoplasm of colon Medical Ce nter (procedure) [code = 892841860] Future Scheduled 1954 Screening for malignant [facility] Test 00:00:00 neoplasm of colon Medical Ce nter (procedure) [code = 861596900] Future Scheduled 1954 Screening for malignant [facility] Test 00:00:00 neoplasm of colon Medical Ce nter (procedure) [code = 545576149] Future Scheduled 1955 Sigmoidoscopy [code = [facility] Sigmoidoscopy] Medical Cente r Future Scheduled 1954 CT Colonography (combo) [facility] Test 00:00:00 [code = CT Colonography [facility] (combo)] Future Scheduled 1954 Screening for malignant [facility] Test 00:00:00 neoplasm of colon Medical Ce nter (procedure) [code = 414766016] Future Scheduled 1954 Screening for malignant [facility] Test 00:00:00 neoplasm of colon Medical Ce nter (procedure) [code = 867021356] Future Scheduled 1954 Screening for malignant [facility] Test 00:00:00 neoplasm of colon Medical Ce nter (procedure) [code = 542954082] Future Scheduled 1954 Screening for malignant [facility] Test 00:00:00 neoplasm of colon Medical Ce nter (procedure) [code = 647981618] Future Scheduled 1955 Sigmoidoscopy [code = [facility] S[facility]oidoscopy] Medical Cente r Encounters Start End Encounter Admission Attending Care Care Encounter Source Date/Time Date/Time Type Type Clinicians Facility Department ID 2022-09-08 Inpatient ER [facility] Nephrology [id number] 17:49:21 [facility] 2022-09-[address] [facility] [id number] [facility] 00:00:00 Encounter [facility] 2022-12-13 2022-12-13 Outpatient R KELLEY RIVERA [facility] [id number] Univers 11:30:00 11:30:[address] [facility] 2022-11-29 2022-11-29 Outpatient R PRIMITIVO [facility] [id number] Univers 15:00:00 15:00:[address] [facility] 2022-09-232022-09-23 Telephone IZABEL Rivera 1.2.840.114 [id number] Univers 00:00:00 00:00:00 Kileyalejandra HEBERT [id number] ity [facility] [place] [phone] Md jeff SIMMONS [address] [place] [address] 2022-09-23 2022-09-23 Telephone Khang [facility] 1.2.840.114 [id number] Univers 00:00:00 00:00:00 Kileyalejandra HEBERT [id number] ity of [facility] [place] [id number] Md jeff [address] 2022-09-20 2022-09-20 Orders Doctor ROXANN 1.2.840.114 [id number] Univers 00:00:00 00:00:00 Only Unassigned, TAI 350.1.13.10 ity of [place] [facility] 4.2.7.2.686 Omar as [phone] [place] [address] [address] 2022-09-14 2022-09-14 Outpatient R KELLEY RIVERA [facility] [id number] Univers 11:30:00 12:49:01 KELLEY RIVERA ity of [facility] 2022-09-14 2022-09-14 Office Khang [facility] 1.2.840.114 [id number] Univers 11:30:00 12:49:01 Visit Kelley HEBERT 350.1.13.10 ity of [facility] [place] [id number] Md jeff SIMMONS [address] [place] [address] 2022-09-14 2022-09-14 Telephone Alec [facility] [id number] Univers 00:00:00 00:00:00 Sara MULTISPEC 350.1.13.10 it[place] of [place].2.[place] C[place] [id number] [facility] [place] [address] [address] [facility] 2022-09-09 2022-09-09 Telephone Khang ALALICIA 1.2.840.114 [id number] Univers 00:00:00 00:00:00 Kelley AMBROSIOJACQUELINE 350.1.13.10 ity of [facility] [place] [id number] Md dical NAL 044 [facility] 2022-09-01 2022-09-01 [facility] 1.2.840.114 [id number] Univers 00:00:00 00:00:00 (Out) Rust SPECIALTY 350.1.13.10 ity of [facility]astro[facility] CARE 4.2.7.2.686 [facility] AT [phone] Md dical WAQAR 072 [facility] 2022-08-31 2022-08-31 Orders Doctor ROXANN 1.2.840.114 [id number] Univers 00:00:00 00:00:00 Only Unassigned, TAI 350.1.13.10 ity of [place] [facility] 4.2.7.2.686 Omar as [phone] [address] 2022-08-22 2022-08-22 Office [facility] 1.2.840.114 [id number] Univers 15:30:00 16:00:00 Visit Brown HEBERT 350.1.13.10 i ty of [facility] [place] [id number] Md dical NAL 204 [facility] 2022-08-22 2022-08-22 Outpatient R BILLY [facility] [id number] Univers 15:30:00 15:30:00 BROWN ity of [facility] 2022-08-22 2022-08-22 Orders Doctor ROXANN 1.2.840.114 [id number] Univers 00:00:00 00:00:00 Only Unassigned, TAI 350.1.13.10 ity of [place] [facility] 4.2.7.2.686 Omar as [id number] [facility] [address] [place] 2022-08-11 2022-08-11 Orders Doctor ROXANN 1.2.840.114 [id number] Univers 00:00:00 00:00:00 Only Unassigned, TAI 350.1.13.10 ity of [place] [facility] 4.2.7.2.686 Omar as [phone] [facility] [address] [place] 2022-07-02 2022-07-02 Orders Doctor ROXANN 1.2.840.114 [id number] Univers 00:00:00 00:00:00 Only Unassigned, TAI 350.1.13.10 ity of [place] [facility] 4.2.7.2.686 Omar as [id number] [facility] [address] [place] 2022-07-01 2022-07-01 Telephone [facility] 1.2.840.114 [id number] Univers 00:00:00 00:00:00 Kelley HEBERT 350.1.13.10 ity of [place] [id number] Md dical NAL 044 [facility] 2022-06-22 2022-06-[address] [facility] 1.2.840.114 [id number] Univers 00:00:00 00:00:00 Kelley HEBERT 350.1.13.10 ity of [place] [id number] Md dical NAL 044 [facility] 2022-06-17 2022-06-17 Floor Scraper Rika, Lisa Lab Main [facility] 1.2.8 40.114 [id number] Univers 13:30:00 13:45:00 Visit Khang Kelley ANUP 350.1.13.1 0 ity of [place] 4[place]2.7.2.[place] [phone] Md dical NAL 353 [facility] 2022-06-17 2022-06-17 Outpatient R KELLEY RIVERA [facility] [id number] Univers 13:30:00 13:30:00 KELLEY RIVERA ity [facility] 2022-06-17 2022-06-17 Outpatient R KELLEY RIVERA [facility] [id number] Univers 13:15:00 13:15:00 KELLEY RIVERA ity [facility] 2022-06-17 2022-06-17 Telephone Khang [facility] 1.2.840.114 [id number] Univers 00:00:00 00:00:00 Kelley HEBERT 350.1.13.10 ity of [facility] 4.2.[place] [id number] Md dical NAL 231 [facility] 2022-06-16 2022-06-16 Telephone Khang [facility] 1.2.840.114 [id number] Univers 00:00:00 00:00:00 Kelley HEBERT 350.1.13.10 ity of [place] [id number] Md dical NAL 044 [facility] 2022-06-14 2022-06-14 Patient Jeffrey [facility] 1.2.840.114 [id number] Univers 00:00:00 00:00:00 Outreach Juancarlos [facility] 350.1.13.10 i ty [facility] [place] [phone] [facility] PRIMARY & [address] SPECIALTY CARE 2022-06-13 2022-06-13 Outpatient R KELLEY RIVERA [facility] [id number] Univers 13:00:00 14:32:00 KELLEY RIVERA ity of [facility] 2022-06-13 2022-06-13 Office Khang [facility] 1.2.840.114 [id number] Univers 13:00:00 14:32:00 Visit Kelley HEBERT 350.1.13.10 ity of [facility] 4.2.[place].2.[place] [id number] Md dical NAL 044 [facility] 2022-06-13 2022-06-13 Patient Jeffrey [facility] 1.2.840.114 [id number] Univers 00:00:00 00:00:00 Outreach [facility]arlos [facility] 350.1.13.10 ity of [facility] 4.2.7.2.[place] [id number] Md dical NAL 044 [facility] 2022-06-13 2022-06-13 Orders Doctor ROXANN 1.2.840.114 [id number] Univers 00:00:00 00:00:00 Only Unassigned, TAI 350.1.13.10 ity of [place] [facility] 4.2.7.2.686 Omar as [phone] [place] [address] [address] 2022-04-28 2022-04-29 Emergency ER [facility] Emergency [id number] SLE 23:57:00 04:25:00 [facility] 2022-04-28 2022-04-29 Emergency ER [facility] [id number] 23:57:00 04:25:00 [facility] 2022-04-28 2022-04-29 Emergency [facility] [id number] 23:57:00 04:25:00 [facility] 2022-04-06 2022-04-20 Inpatient UR CARLA, [facility] Gastro [id number] SLE 23:57:00 13:42:00 BRANDI 2022-04-06 2022-04-20 [facility] [id number] 23:57:00 13:42:00 Encounter Jorgito Rosalesal Saqib rosario [facility] 2022-04-06 2022-04-20 [facility] [id number] 23:57:00 13:42:00 Encounter Carla Brandi Saqib Fregoso [facility] Results Test Description Test Time Test Comments [...] U APPEAR (test code = 3267) clear [facility] [id number] 21:55:00 Test Item Value Reference Range Interpretation [...] U APPEAR (test code = clear 3267) [facility]LECTROPHORESIS, SERUM WITH REFLEX TO [id number] 15:26:00 Test Item Value Reference Range Interpretation [...] response to infection, inflammation or tissue injury. [id number] Gigi Camarillo M.D. (BEAKER) (test code = 2616) PROTEIN TOTAL SERUM, 5.5 gm/dL 6.0-8.3 L SPEP (BEAKER) (test code = 2660) Loss Prevention Guard ID - BSOperator ID - ADMSARS-CoV2/RT-PCR (Asymptomatic ONLY)2022-04-29 02:43:05 Test Item Value Reference Interpretation Comments Range SARS-COV2/RT-PCR Negative Negative The SARS-Co V-2 (test code = target nucleic 17135-0) acids are not detected in thi s [...] revoked sooner. Fact Sheet for Healthcare Providers: https://www.[employer].com/Documents/Xp ert%20Xpress%20SAR S%20CoV-2/Fact%20S heets/3023802%20S ARS-COV-2%20HEALTH CARE%20PROVIDERS%2 0FACT%20SHEET.pdf Fact Sheet for Healthcare Patients: https://www.[employer]/Documents/Xp ert%20Xpress%20SAR S%20CoV-2/Fact%20S heets/302-3801%20S ARS-COV-2%20PATIEN T%20FACT%20SHEET.p df Lab Interpretation Normal (test code = 20626-6) [facility]2022-04-29 02:43:05 Test Item Value Reference Interpretation Comments Range SARS-COV2/RT-PCR Negative Negative The SARS-Co V-2 (test code = target nucleic 86413-8) acids are not detected in thi s [...] revoked sooner. Fact Sheet for Healthcare Providers: https://www.[employer]/Documents/Xp ert%20Xpress%20SAR S%20CoV-2/Fact%20S heets/3023802%20S ARS-COV-2%20HEALTH CARE%20PROVIDERS%2 0FACT%20SHEET.pdf Fact Sheet for Healthcare Patients: https://www.[employer]/Documents/Xp ert%20Xpress%20SAR S%20CoV-2/Fact%20S heets/302-3801%20S ARS-COV-2%20PATIEN T%20FACT%20SHEET.p df Lab Interpretation Normal (test code = 86036-5) [facility])2022-04-29 02:43:05 Test Item Value Reference Range Interpretation Comments SARS-COV2/RT-PCR Negative Negative The SARS-Co V-2 target (test code = nucleic acids a re not 8915730) detected in thi s specimen. Negative result [...] revoked sooner. Fact Sheet for Healthcare Providers: https://www.[employer]/Documents/Xpert%20Xpress%20SARS%20CoV-2/Fact%20Sheets/302-3802%84NEJR-JRG-3%20 HEALTHCARE%20PROVIDERS%20FACT%20SHEET.pdf Fact Sheet for Healthcare Patients: https://www.[place] [employer]/Documents/Xpert%20Xp ress%20SARS%20CoV-2/Fact%20Sheets/302-3801%64IIAR-INN-0%20PATIENT%20FACT%20SHEET .pdfCOMPREHENSIVE METABOLIC [id number] 01:47:21 Test Item Value Reference Range Interpretation [...] G3b Moderately to s everely 30-44 G4 Sever ly decreased 15-29 G5 Kidney failure <15Repo rted eGFR is based on the CKD-EPI 2020 equation t hat does not use a race coefficientEsti mated GFR is not as accur ate as Creatinine Gemma miller in predicting glom erular filtration rate . Estimated GFR is not appl icable for dialysis patien ts Loss Prevention Guard ID - PIKRZYSZTOF [id number] 01:37:34 Test Item Value Reference Range Interpretation Comments MAGNESIUM (BEAKER) (test code = 1.9 mg/dL 1.6-2.6 627) Loss Prevention Guard ID - JEWELL LPT/[id number] 01:29:35 Test Item Value Reference Range Interpretation [...] 2.5-3.5 for patients with mechanical heart valves.PROTHROMBIN TIME/[id number] 01:28:54 Test Item Value Reference Range Interpretation Comments PROTIME (BEAKER) 16.3 seconds 11.9-14.2 H (test code = 759) INR (BEAKER) (test 1.40 See_Comment [Automat ed message] code = 370) The system [employer] h generated this result transmitted ref erence range: <=5.90. The reference range was not used to int erpret this result as normal/abnormal . RECOMMENDED COUMADIN/WARFARIN INR THERAPY RANGESSTANDARD DOSE: 2.0 - 3.0 Includes: PROPHYLAXIS for venous thrombosis, systemic embolization; TREATMENT for venous thrombosis and/or pulmonary embolus.HIGH RISK: Target INR is 2.5-3.5 for patients with mechanical heart valves.CBC W/PLT COUNT & AUTO [id number] 01:15:14 Test Item Value Reference Range Interpretation [...] 0-1 PERCENT (BEAKER) (test code = 2801) [id number] 13:48:54 Test Item Value Reference Range Interpretation Comments Scan Result (test code = See Scanned Report [id number]) [facility] 13:48:54 Test Item Value Reference Range Interpretation Comments Scan Result (test code = See Scanned Report [id number]) [facility] [id number] 13:48:54 Test Item Value Reference Range Interpretation Comments SCAN RESULT (test code = See Scanned Report [id number]) U/S, RENAL, [id number] 11:13:00Reason for exam:->[facility] ÁLVARO HENRIQUEZ : 1955 Sex: MFINAL REPORT [...] MDReport Verified Date/Time: 04/20/2022 11:13:05 BASIC METABOLIC [id number] 06:10:50 Test Item Value Reference Range Interpretation [...] not appl icable for dialysis patien ts Loss Prevention Guard ID - ALECIA MLimited 2D [id number] 17:56:18Ejection FractionSLEH ECHO HEARTLAB MKCKESSON [facility] CampusLimited 2D [id number] 17:56:18Ejection FractionSLEH ECHO HEARTLAB MKCKESSON [facility]CORT[facility]OL2022-08-09 04:58:49 Test Item Value Reference Range Interpretation Comments CORTISOL, TOTAL (BEAKER) (test code 5.2 ug/dL 3.7-19.4 = 2755) Loss Prevention Guard ID - JEEWLL Randall, [id number] 13:02:59 Test Item Value Reference Range Interpretation Comments Osmolality, Ur (test code 125 See_Comment [ Automated message] = 2695-5) The system [employer] generated this result transmitted ref erence range: 50-1,200 mOsm/kg mOsm/kg . The reference range was not used to int erpret this result as normal/abnormal . Lab Interpretation (test Normal code = 04712-3) [facility] CenterOsmolality, [id number] 13:02:59 Test Item Value Reference Range Interpretation Comments Osmolality, Ur (test code 125 See_Comment [ Automated message] = 2695-5) The system [employer] generated this result transmitted ref erence range: 50-1,200 mOsm/kg mOsm/kg . The reference range was not used to int erpret this result as normal/abnormal . Lab Interpretation (test Normal code = 14502-0) [facility], [id number] 13:02:59 Test Item Value Reference Range Interpretation Comments OSMOLALITY URINE 125 mOsm/kg See_Comment [Automated message] (BEAKER) (test code = The sy stem which 614) generated this result transmitted ref erence range: 50-1,200 mOsm/kg. The reference range was not used to int erpret this result as normal/abnormal . Sodium, random [id number] 12:21:46 Test Item Value Reference Range Interpretation Comments Sodium Urine (test 23 meq/L code = 2955-3) DILIP (test code = Reference Range: No DILIP) NormalsOperator ID - [facility] [id number] 12:21:46 Test Item Value Reference Range Interpretation Comments Sodium Urine (test 23 meq/L code = 2955-3) DILIP (test code = Reference Range: No DILIP) NormalsOperator ID - [facility] CenterODIUM, RANDOM [id number] 12:21:46 Test Item Value Reference Range Interpretation Comments SODIUM URINE (BEAKER) (test code = 23 meq/L 243) Reference Range: No NormalsOperator ID - MOChloride, random [id number] 12:15:03 Test Item Value Reference Range Interpretation Comments Chloride, Urine 23 meq/L (test code = 21420-2) DILIP (test code = Reference Range: No DILIP) NormalsOperator ID - MO [facility] [id number] 12:15:03 Test Item Value Reference Range Interpretation Comments Chloride, Urine 23 meq/L (test code = 31828-1) DILIP (test code = Reference Range: No DILIP) NormalsOperator ID - MO [facility]CH[facility] RANDOM [id number] 12:15:03 Test Item Value Reference Range Interpretation Comments CHLORIDE URINE (BEAKER) (test code = 23 meq/L 682) Reference Range: No NormalsOperator ID - MOOSMOLALITY, [id number] 11:38:18 Test Item Value Reference Range Interpretation Comments OSMOLALITY, SERUM (BEAKER) (test 285 mOsm/kg 275-295 code = 615) SARS-COV2/RT-PCR ([facility])2022-04-18 07:40:10 Test Item Value Reference Range Interpretation Comments SARS-COV2/RT-PCR Negative Negative The SARS-Co V-2 target (test code = nucleic acids a re not 4868768) detected in thi s specimen. Negative result s do not preclude SARS-C oV-2 infection and s hould not be used as the onel e basis for patient managem ent decisions. Nega tive results must be combine d with clinical observ ations, patient history , and epidemiological information. A false negativ e result may occur if a spec imen is improperly gonázlez ected, transported or handled. This SARS CoV-2 [...] revoked sooner. Fact Sheet for Healthcare Providers: https://www.[employer]/Documents/Xpert%20Xpress%20SARS%20CoV-2/Fact%20Sheets/302-3802%90YYOJ-HVO-5%20 HEALTHCARE%20PROVIDERS%20FACT%20SHEET.pdf Fact Sheet for Healthcare Patients: https://www.[employer] [place]/Documents/Xpert%20Xp ress%20SARS%20CoV-2/Fact%20Sheets/302-3801%03TCCE-ZBG-5%20PATIENT%20FACT%20SHEET .pdfCOMPREHENSIVE METABOLIC [id number] 06:37:57 Test Item Value Reference Range Interpretation [...] not appl icable for dialysis patien ts Loss Prevention Guard ID - JEWELL [id number] 06:28:56 Test Item Value Reference Range Interpretation Comments PHOSPHORUS (BEAKER) (test code = 4.6 mg/dL 2.3-4.7 604) Loss Prevention Guard ID - JEWELL [id number] 06:28:55 Test Item Value Reference Range Interpretation Comments MAGNESIUM (BEAKER) (test code = 1.9 mg/dL 1.6-2.6 627) Loss Prevention Guard ID - JEWELL LBLOOD GAS, [id number] 05:41:04 Test Item Value Reference Range Interpretation [...] (BEAKER) 37.0 (test code = 1818) CALCIUM, [id number] 05:40:16 Test Item Value Reference Range Interpretation Comments CALCIUM IONIZED (BEAKER) (test 1.26 mmol/L 1.12-1.27 code = 698) PH, BLOOD (BEAKER) (test code = 7.31 1810) CBC W/PLT COUNT & AUTO [id number] 05:36:28 Test Item Value Reference Range Interpretation [...] PERCENT (BEAKER) (test code = 2801) OSMOLALITY, [id number] 11:10:49 Test Item Value Reference Range Interpretation Comments OSMOLALITY URINE 138 mOsm/kg See_Comment [Automated message] (BEAKER) (test code = The sy stem which 614) generated this result transmitted ref erence range: 50-1,200 mOsm/kg. The reference range was not used to int erpret this result as normal/abnormal . CALCIUM, [id number] 08:10:56 Test Item Value Reference Range Interpretation Comments CALCIUM IONIZED (BEAKER) (test 1.25 mmol/L 1.12-1.27 code = 698) PH, BLOOD (BEAKER) (test code = 7.28 1810) SODIUM, RANDOM [id number] 06:43:18 Test Item Value Reference Range Interpretation Comments SODIUM URINE (BEAKER) (test code = 34 meq/L 243) Reference Range: No NormalsOperator ID - ALECIA MCHLORIDE, RANDOM [id number] 06:43:17 Test Item Value Reference Range Interpretation [...] not appl icable for dialysis patien ts Loss Prevention Guard ID - ALECIA [id number] 05:43:31 Test Item Value Reference Range Interpretation Comments MAGNESIUM (BEAKER) (test code = 1.9 mg/dL 1.6-2.6 627) Loss Prevention Guard ID - ALECIA [id number] 05:43:31 Test Item Value Reference Range Interpretation Comments PHOSPHORUS (BEAKER) (test code = 4.3 mg/dL 2.3-4.7 604) Loss Prevention Guard ID - ALECIA MCBC W/PLT COUNT & AUTO [id number] 05:31:30 Test Item Value Reference Range Interpretation [...] 0-1 PERCENT (BEAKER) (test code = 2801) [id number] 06:13:07 Test Item Value Reference Range Interpretation Comments CORTISOL, TOTAL (BEAKER) (test code 8.6 ug/dL 3.7-19.4 = 9975) Loss Prevention Guard ID - BSBASIC METABOLIC [id number] 06:06:58 Test Item Value Reference Range Interpretation [...] not appl icable for dialysis patien ts Loss Prevention Guard ID - ALECIA MCBC W/PLT COUNT & AUTO [id number] 05:20:20 Test Item Value Reference Range Interpretation [...] (BEAKER) (test code = 2801) BASIC METABOLIC [id number] 06:29:33 Test Item Value Reference Range Interpretation [...] is not as accur ate as Creatinine Gemam angela in predicting glom erular filtration rate . Estimated GFR is not appl icable for dialysis patien ts Loss Prevention Guard ID - PIAYA LSARS-COV2/RT-PCR ([facility])2022-04-15 03:24:59 Test Item Value Reference Range Interpretation Comments SARS-COV2/RT-PCR (test Negative Not Detected, Negative, code = 2632488) See external report for linked test SARS-COV-2 PERFORMING LAB [facility] (test code = 9363571) Negative result for this test determines that [...] of the Act.Fact Sheet for Healthcare Prov iders:https://www.[employer]/sites/default/files/product/documents/Fact_Sheet_HC _Knztrbkwi_Zcdm_FEXB-QtB-1.pdfFact Sheet for Healthcare Patients:https://www.[employer]/sites/default/files/product/docume nts/Zvfo_Ruuor_Ndeeucix_Ssbw_YSRC-IqQ-4.pdfPerforming Laboratory:[place] [address] [address] [place], [place] [id number] 18:53:54 Test Item Value Reference Range Interpretation Comments SODIUM (BEAKER) (test code = 381) 131 meq/L 136-145 L Loss Prevention Guard ID - BSALPHA FETOPROTEIN (AFP), TUMOR [id number] 16:11:12 Test Item Value Reference Range Interpretation Comments ALPHA-FETOPROTEIN (BEAKER) (test code < ng/mL <10.0 = 1094) Loss Prevention Guard ID - ALECIA MUrinalysis w/Microscopic + Reflex to [id number] 02:06:00 Test Item Value Reference Range Interpretation Comments Color, UA (test code Colorless = 5778-6) Clarity, UA (test Clear code = 5767-9) Specific [place], UA 1.009 1.001-1.035 (test code = 5811-5) pH, UA (test code = 7.0 5.0-8.0 5803-2) Protein, UA (test 20 mg/dL Negative A code = 58556-8) Glucose, UA (test Negative Negative code = 365) Ketones, UA (test Negative Negative code = 2514-8) Bilirubin, UA (test Negative Negative code = 68628-3) Blood, UA (test code Small Negative A = 44384-8) Nitrite, UA (test Negative Negative code = 5802-4) Leukocytes, UA (test Large Negative A code = 5799-2) Urobilinogen, UA 0.2 mg/dL 0.2-1.0 (test code = 97601-1) RBC, UA (test code = 3 See_Comment [Autom ated 80521-1) message] The system which generated this result [...] . Bacteria, UA (test Rare code = 21485-3) Crystals, Urine (test Rare code = 60930-9) Specimen Source (test code = 2795) DILIP (test code = DILIP) Loss Prevention Guard ID - [auto]Loss Prevention Guard ID - tech Lab Interpretation Abnormal (test code = 82616-9) [facility] Reflex to Culture 2022-04-14 02:06:00 Test Item Value Reference Range Interpretation Comments Color, UA (test code Colorless = 5778-6) Clarity, UA (test Clear code = 5767-9) Specific [place], UA 1.009 1.001-1.035 (test code = 5811-5) pH, UA (test code = 7.0 5.0-8.0 5803-2) Protein, UA (test 20 mg/dL Negative A code = 07781-7) Glucose, UA (test Negative Negative code = 365) Ketones, UA (test Negative Negative code = 2514-8) Bilirubin, UA (test Negative Negative code = 86423-5) Blood, UA (test code Small Negative A = 13721-5) Nitrite, UA (test Negative Negative code = 5802-4) Leukocytes, UA (test Large Negative A code = 5799-2) Urobilinogen, UA 0.2 mg/dL 0.2-1.0 (test code = 62985-0) RBC, UA (test code = 3 See_Comment [Autom ated 91253-5) message] The system which generated this result [...] . Bacteria, UA (test Rare code = 85085-7) Crystals, Urine (test Rare code = 18266-1) Specimen Source (test code = 2795) DILIP (test code = DILIP) Loss Prevention Guard ID - [auto]Loss Prevention Guard ID - tech Lab Interpretation Abnormal (test code = 35359-5) [facility] URINE [id number] 02:06:00 Test Item Value Reference Range Interpretation [...] = 1521) SOURCE(BEAKER) (test code = 2795) Loss Prevention Guard ID - [auto]Loss Prevention Guard ID - nfvgHrkxibpz9982-16-83 17:31:25 Test Item Value Reference Range Interpretation Comments Case Report (test code Medical Cytology = 104) Report Case: [id number] Authorizing Provider: Gadicherla, Brandi Collected: 04/12/2022 05:05 PM MD Saqib Ordering Location: [address] Received: 04/13/2022 09:37 AM Service Pathologist: Myra Armenta MD Specimen: Urine, Catheter DIAGNOSIS (test code = z1clwPRgCNZuk4eiROZxdJ 3220) FuZzEwMzNcZnRuYmpcdWMx IHtccnRmMVxlcGljOTYwMl lxyxCeMRXrmUNdL8Wtugiz HDvwFD1dKA0vuYqwmVXwrT YoWULsTpCxw2iiz246mHXv t0nhUEWFhdjtnEt1wXuzU9 2gz9X8WhahO46qySChUDT1 WFCsVRUuzKArKNHtPMM6MN OrnEIiA5baZAAfOS5dofoc JFxxMCkaVLMogKG0QFTjkM RxH5ZtEPHbHCdiDHXwlvd4 GlAfLh7dqZFykGjyCFfwHN NuTHVxDUzfEYYbEpXhH8BB TFNGUREUArYCABWZAY1YGS EWMNARCD4SFFVpH0oIT1BG AD4FHRxypAuzGOKvLMJqPL 3RQ5GBZLIGPBQGKoHVGZhT JWrHYGGLGOSLW6HLLScXDQ jzKmAFQVrUF3mIMEIrhkJa SPGkOFCyVXWxkGcrOL61mG djZLX2dUDvCS0mBANqay9u dURcaB1rqLSjhID3jN7aKN rcVW99wIGxZYWsmQXafMse rrBwKJdsv3EoKQjtVKDgBO 3alIloFYIiEJ3bCKDgR5km rO6angi5XnTgUFDlSaY7TR ThrkO1Wda2LVJrGJnpb7nk b4MyXITtWYe6dHuwQkEcDA Idc1uujgEyIoGyKWXrHSUb AYOvsBCfK837t5ahw3ivhc EhdTK3IJEnCRS3CDxehdDq kpF8CNeneSQkYmI8IKrewr WdDScsxwIefwKsFxh1VHXl H103SGT9hKgxh3lqXHY3GF TxZNNwJcSuWt1mmVNgH966 ZCGmJEIWKLQbjAq8WQKxqu VmxtPvhSQRd969Y535q1xp OGWmdqVjuRvFkuevj2ujB0 19XHBhcGVydzEyMjQwXHBh aWJhmKS6QBLbJJ9wlxuiNB dmXDmlUZDkfdY7QBZkqNVk F7HmYVKoEW4piaiaTZW4WB mnGPEdGNL6GeOqAFKul5Ck hjd6LrHqhn9kxj75JPU9u7 WuvFdfZPJ7FMO1RnVfOa0s rGHkYIEgWJ9gXcZedGMlIM Qqdr81jFfzZMcgXMP0OTYu iaCye2Lkv1znZmJqntJoL6 piF2UfMVOzJZQxJXRdDlJb qlTec5Szh0QymBLyiVl0w5 ykEFJhKFTsqXvly6ruGHL6 TDXlpNUtL8hwbQ7cTJXvWS 2jnijnt6caHGxkHPypJGYz lKV5nkJ1BYLfsLPqX5YdwX 6xWOGkSPmeXQZyljd6FwCi Tk6uyWRnhRetAPeaDoobAP dlXHBnbmNvbnRccGduZGVj XHBsYWluXHBsYWluXGYwXG ZzMjRccWxcbGFuZzEwMzNc aGljaFxmMVxkYmNoXGYxXG dsA3iqSdGpZsXwQmt4ONMv bDUuBSUxHsc7HLTolNYwRE JRlAvdjR7jEXKkpQkgyI7g aDN0NQRmhsGpdWTZjL6dYG MTkD2wLkY3EJBgWtr6IDQ2 DyRKCQCpfo72 CPT Code(s) (test code j6uniYYzHVByrWR2TpQqWN = 3357) Klw5moa8RmdRUxoGTtPPgo tHMypvMupt11wQT6jN88XA 5rDIYyZbJ0TSGyiaL7Nms7 KAXhTSGwpVWpS364t5rpc9 sfsfAjzUU6sEhxIBJlrrzp LlB8SCehCGEqebylSUc3OY obHMIybSJ6HKCzaMJjH6Sq LADlLF1dyke5MYO1TGgiNJ VtUsA1HUQipADeULXzmGbc STnhw129ZXZ1OhFaWTLnrs ZwqJnbvL3aYiIwZCU3SVXm OFxwYXJ9 CLINICAL DATA (test m4pdyPFhZPCaqWE0MtYjKK code = 3351) Pek7wun0GzeIVngCVlLZcr nBAfwkQpsk17vRX2lU16SZ 0yYUGtRsL2FBSkmjL9Wlj6 LUSfRGVddIPvU882t1dhb0 icjwMmbYY4dRfcDARoldtq BoF9EWebYLFuspfiCAo3HM iyKTFtbQC2SRFjxXCgN9Yd RHOkWT9nmsz5OWD5YCmnKL RvKxL4BJIvvWNiVPEnsIdm GLkcc126LDJ7YnRqENJgnm SczYoclQ1jGcAtNRIDpdEf jb77foWkYWKvX8YrWPbke2 Vsnavwe2ufWZhuljAoPT3c tMFfFIH4boZEP8aug82mDe 9zUtXyv2Qat9ckH98eWJqr Lw79iwCtpE9flXZ3IMVrKT luQT52WTmncYH4xIIjP90b oCdhcOFlxQZ3JSptHIAtUu CbASP2TQWlRASiSTPPGYFe bmQgdHJhbnNmZXJyZWQgZm 6bIMN1mbAbVEPbIKNsaURj sCegvh1wbYZhcH== SPECIMEN SOURCE (test a2euaPEmHYIraRK9CtUjVL code = 3377) Blc7vgg2NaiUVjeXZfQWfq nXPjneNnvx29mZB8sY35PE 8jJLIgJiI9JGLszoZ5Rzq5 IPPtEDQchFYaE813o9bme8 asygAnmQF9pXbqOSWakxri JpD3IYyeCQYajysrFHp5XB gxCRFxpGE5BKGwrUTrP1Nb UAIzEK0jswi4LJO9MZukTT MsQvC9PZDypWWmLTLpyNjm WQdin882PGT9RuDbLGNacw LrvHvjgL8mRmYcHVVPLeqL SXgiO4DMBATSHMUiiWJbiS == GROSS DESCRIPTION (test x2mqjKTgHDMwdKL1MjMmVF code = 9552519928) Lnc5onh0GnnIRaiBXgJRkv cONiqxWbse62iLR0oB53VK 2mRIRhPhJ7OJZzjrW1Gfk2 XUNgVMQdeRXrB358g4bqs7 tluaJqzJQ3oJlaHFVktzhs AgW1VVpfFBEprskrVCp8IX ldGBPgjZD5GXEylUTrG6Mb QUYzSU7dulr1VAV1ICcxAV RkEaC1PHBegTBnWLVlsZhb GKelw236DSB4AvOlBZPmvc S8UKsaVAVzB6RjL7YlFJyw WLV8EDBsKFMdKKQbFEFiTK AgWLxatjW6r2shBZFekMHv WQP6DVbmsOEfOENhAASyAC xkYiBPVlIgIiAzMDAzOTY3 MqQ6CDs4EVUNMnBwEmNnLp a6SKUrInKuGMi0BSw4KHgK BnD0YRt0VNyeZbSgDITzXL noIHu8KISiCEhytICaMCMa WAGpSYbpMLivZ96atThihE 5cZnMyMCBBLiBVcmluZSwg X3J6fGK4WSMcTOHyxzuxix OmRXRtO7SrqlDeUFOcX2Wm N28ks9NuzHSrxzNicTGrVS sgcHJlcGFyZWQgNCBjeXRv c3AymlShs0edaAdng7LthE RvEC57URPjzOKwUSE4HO9h fVxwYXJ9 MICROSCOPIC DESCRIPTION u2vyyVBhADMelZR3YwMeHU (test code = 3371) Mgh8taj4OqsCZebKKvJYpd cETzdyCieu43mTE4eR33JB 3eCFIlZoJ6EFQvueE8Sug7 TIHbKRWxyBSbV294y8owg8 wncwJauCD9iZbhJWHjdnqq IcR4LSpmQSHpnjiqLCf4YO voZZNuvOA1OXXjlIUwV8Ap WGXpXN2lgef5MSM8JEbqBL VpCnS3KPKhvWXeALVqlWvp WUvdq616NNB2ReXaLTUbse UzsOahjI7sYyUsUXPYTWDn i4JeJRBvFPraDSD4 STATEMENT OF ADEQUACY Satisfactory (test code = 2757) Gross assessment was [facility] performed at (test [facility], = 2777) Department of Pathology, [address] [place] [address], Technical component was [facility] performed at ([facility], = 2778) Department of Pathology, [address] [place] [address], Professional component [facility] was performed at ([facility], code = 2779) Department of Pathology, [address] [place] [address], [facility] Test Item Value Reference Range Interpretation Comments Case Report (test code Medical Cytology = 104) Report Case: [id number] Authorizing Provider: Brandi Rosales Collected: 04/12/2022 05:05 PM MD Saqib Ordering Location: [address] Received: 04/13/2022 09:37 AM Service Pathologist: Myra Armenta MD Specimen: Urine, Catheter DIAGNOSIS (test code = k3fatDEePMFim7kzGWBkcZ 3220) FuZzEwMzNcZnRuYmpcdWMx IHtccnRmMVxlcGljOTYwMl npsrIeNFYemYSoW1Dpvebq JCfrYJ7iYG3ybPaxiJYptL MwDKGnFmLjn2eac486aIPd y0bsAHJCqtrtwHn8nVajT3 5cg2E3ZyeiW91ehJOmBXC0 ONHsYHMvzMWsJZWiQIW3DS YhsXYcF0uqGEJaRU5knmma OLlvSBwaUIOanBV9VQOepZ AbV2AaOXVbJJmaZMHjizn3 JjQsTg7guSAwiAmlWPcbLB SjAYLxEJroWECnUbEwO3XK NOYHLBWYGzGVVQPDOK0XAR SFFXJINT3UFOYdN9iUO8NO FS1LDRucmAqdCJYfPYYlQF 9FO9XXTZWYXYFRKlDCCWpU ZQiAPFBOTVOER8XGKXgCVU qtPnFFVMjLK8sTTJGdujQf JSJmUAFcPOAvgNzzFR71uS ptMJF5tDQwXS5nPDQzih0i nZEbuY8vbNAheUN7yI6eWX zkOV49uRBjTFVihCAsaReg djYvNTfff9RrPNygURZiRG 4gkQckJHHaER5dIACyT4ln hS4garm9MzRzAOTyVtE7WB WosjC9Uey2YHHxANbom3pt z5SzXMWcUJf9oCjiQbGiOT Pnf1jmpvLcRbUmRNDvSGDg LJSvjHZyN424s0def6igmm NruOH3SDNfODT7QImaerOn szE7UXxgyQIgAnA7NFjmfm EvKVwpbnYkmhXoDfz8FWGu G925UST8eGpof3duIJR8ZZ DcVWVsAbIkKj0ubCUyY584 TDKkVPTCVUIgqHw4FJDdvy TxcyXtkTGNh783Y185r3uy QHIqzvNmxNbUjloqb2pbZ7 19XHBhcGVydzEyMjQwXHBh sYJqjDZ3QGKeES7gftkrGH abPRtvUXIesiS7WCRkoTPu H4IaTVEhYL8tvrzaRNE9CL dvDLIoPAH3YzEeYFIta0Pt rmf1VePjaj2cyc10TTY2q0 MrqPygPCL0RKV7TyRpZf5t xWPnUEKbIY5mMyAkuCZsWN Mcpa83mTqqSYmoHLH6VVLs ckBtf4Mls0uiTtIjwnKdY8 kjB5NgOPYfWPDwHBEuAtBk wkMpp2Jct6McfUAkbWi8q4 raYAHcWGXiiSpcq2mqYCK3 GGStfOQhP9uzrG9xXWOvGK 6nyvbno2ekAWgnVMzlNYGg jVO8kxT4SQBlcKDvH4MrqF 1bNDHtBYisUGYgvye7AvIr Cl3blSLtmEnfIMfeXqpyQQ dlXHBnbmNvbnRccGduZGVj XHBsYWluXHBsYWluXGYwXG ZzMjRccWxcbGFuZzEwMzNc aGljaFxmMVxkYmNoXGYxXG blS5tzDkFmTsDlXvv1ZEHq zXGyGTRcNqv9DZScsJWwNJ QYtLcnjB4wCIDboJhxnJ1r sDQ0DUVpiwQnrWOMiP8fKS PLwQ5cDfE6KGLfBxz4BAD5 CkVPXMOxno15 CPT Code(s) (test code x8mxgBZnZXCdsFG2GhKlYT = 3357) Awd6pty0DtkLDdyNKpOYlq pKGdoxJceq87qMF5sZ79TG 3eBABoXdX9TGKjdmV6Dno5 CLKwNRAnlESoO152j9bgv4 isasMmcNZ4pOaqKMOnvtzg QrX1BWqhDYNpufxfGKb2BA bbBJJitFV4BLFbcCWbA8Zl PUKlHY2iyiu1CGW4NPhsEC TzAiI6OZTrdQFrFHNcwRmm GTdbz240ZNK0GvXsQUEycb BtgUenfJ5iWuDcAWK9AKJv OFxwYXJ9 CLINICAL DATA (test s1moyGEfDDTjhPQ2OdZvNZ code = 3355) Lnx0cpk8XwbTKyzJKmKOgo qKIlnoZfol16eGZ0jE76ZU 4kXZOtHpS5FACbwbI2Fgl6 KIVgZGTenSQmF519o8gqz4 yvpqRfoIX9mDrhTGZgsjro HsB4XGyhFCFuwkikXCi7PM mzHNWfgYH3KNOwqPNdP8Fo JIZiWP4lcmj3XGB0VKynCC WvLeA5ENPijYYlGQJhuYzc UIulp127FBL7ElLhGZSbsm HnbXlgdC3aDnAdKICMmuDt yo34plZaLSPgX6UcJAeza2 Dbfltda0iiVFpxxeOmAU2m hUKxPGG3izHKM1big88nTs 2nBxFrf4Dfs0maY39uVKrj Ka20wrEziK3ibUU5JXUsBA qsIS99JBymiGS4iNGoS31u cLavsZUjtBM8VTcuHMIxRi BaCBC7MROiGKPpCDNFXFFi bmQgdHJhbnNmZXJyZWQgZm 5vLWQ0wqVgBZPwWIAveOKp gSgrzg6gvZEhdT== SPECIMEN SOURCE (test w4qogJKdGLLwyBZ8WkWpIS code = 3377) Qgl5fnb2ZdkKUcvJBjCNgr mPZfsvBgyu10uVU8fC17ZO 2kNFTbMbE9LVHvhfZ2Kac8 PCKmFZHgsHUbL216j1hzd3 vzlsKlsRI0bTcnTQJktabv NnT4PLxpNLFyaogeSJm0FT mcSXSrlKQ7JXGvpOHfS7Ix CBLvCF6tniu5RCF1WPkgJW FcUlC5SAGigNCuTAMoxRaq CXatm438RPQ3NpTyMQQlyv GocAnedE4hVhQdUTZZIagS XOdmC3UCUHEKJFJdpRNanX == GROSS DESCRIPTION (test k2rsyWRnRSPdfQR9QsBjBU code = 2320209771) Ucz1ftp9AxoTOvbMAvUJri zVFthxKcuz31iEN4pJ20DG 3lYXQiBmA7ZKMzfxJ1Cvt7 INSzJZQlhJQoK329k8hep6 joeeZwpID3vMsiVTGghfey YeY0EWcsVCUncqmrBSq6HN tzOVBpeIE9FHWfwWKfN4Bn LSJeGR7ddio9CYE8EWusKS OiHeQ2NLHmvTIePXLgtDkm NCjdg322RXF2YvRcQNVsxh S3XSyjDTLqE8RfD8IvQJaw GHY0SJNrEPVeWODfSPFbST SrKTjvkwW1l2vyQHWbsRLy RUG8NGhrhIIbMCJjJGEmXM xkYiBPVlIgIiAzMDAzOTY3 AdA4SPc0FBYBDgDkMyLdUm z3BKZkMuKkYJp6MKf1KTeV EgG8PZg2ONkfDyGyLNDlAA wyIYu4ZNToYLavvIRdTEEw NORaYIwdQQatQ17fkOgttE 5cZnMyMCBBLiBVcmluZSwg L1F9lJQ2OZIjQNSkiavyze SfFTAtW5QucaHdTEByN9Jo B21ua1SvpBLylmXdgFVhEP sgcHJlcGFyZWQgNCBjeXRv s3ZqzgFuf4vatYurm5AweL PxGE84XLEpnOEqHDB9TN3d fVxwYXJ9 MICROSCOPIC DESCRIPTION h8rpfWShTDCgsWV7PtZzIN (test code = 3371) Zaa5bbw8BxvVDugOUcCXrb sIClrfLdtv01iYC5wW52KB 2xJFZeSoY8HOLypuV2Hlj0 QLIvICAaaAPlU887f4wnd0 pkrrDpyYE9xOpsKOAlhgnb ZmT2UEjxPTHghuvrPTf8CT lbYGNxaSB2EOLtpCCeU8Lv CDLdOA1wooe3CNC6KQvgEQ FdXxP3HIPhaRNvIXChlHmj LQwns372EGV5LjTxNFYoht AceFgwfN5tBwEfEVAGNHAz c3MxOQVhDBftRLK3 STATEMENT OF ADEQUACY Satisfactory (test code = 2757) Gross assessment was [facility] performed at ([facility], = 2777) Department of Pathology, [address] [place] [id number], Technical component was [facility] performed at ([facility], = 2778) Department of Pathology, [address] [place] [address], Professional component [facility] was performed at ([facility], code = 2779) Department of Pathology, [address] [place] [address], [facility] 17:31:25Medical Cytology Report Case: [id number] Authorizing Provider: Brandi Rosales Collected: 04/12/2022 05:05 PM MD Saqib Ordering Location: [address] Received: 04/13/2022 09:37 AM Service Pathologist: Myra Armenta MD Specimen: Urine, Catheter CATHETERIZED URINE, CYTOLOGY (CYTOSPINS): - NEGATIVE FOR HIGH GRADE UROTHELIAL NEOPLASIA Predominantly acute and chronic inflammation identified Signing Pathologist Direct Phone Line: [phone] signed by Myra Armenta MDon 04/13/2022 at 5:31 [id number] known medical history who was admitted to OSH on 04/02 for syncope, 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 Urine, Catheter.Received 3 cc color less fluid; prepared 4 cytospins.Performed. [facility], [address] [place] [address], [facility], Department of Pathology, [address] [place] [address], [facility], Department of Pathology, [address] [place] [address], JA, [id number] 16:53:00 Unlisted Reason for Exam - Click Yes and Enter Reason Below->NoIs this for enterography?->NoWill this procedure require oral contrast?->No [facility]ENRIQUEZ : 1955 Sex: MFINAL REPORT [...] possible distal right ureteral stones. Signed: Seth Calderonort Verified Date/Time: 04/13/2022 16:53:11 Reading Location: [address] Body Reading Room COMPREHENSIVE METABOLIC [id number] 05:34:52 Test Item Value Reference Range Interpretation [...] eGF R is based on the CKD-EPI 2021 equation that d oes not use a race coefficientEsti mated GFR is not as accur ate as Creatinine Gemma miller in predicting glom erular filtration rate . Estimated GFR is not appl icable for dialysis patien ts Loss Prevention Guard ID - YAMILE GCBC W/PLT COUNT & AUTO [id number] 05:10:44 Test Item Value Reference Range Interpretation [...] H PERCENT (BEAKER) (test code = 2801) [id number] 19:18:49Medical Cytology Report Case: [id number] Authorizing Provider: Brandi Rosales Collected: 04/08/2022 05:32 PM MD Saqib Ordering Location: [address] Received: 04/11/2022 09:37 AM Service Pathologist: Masood Hayes MD Specimen: Cyst, HEPATIC COMPLEX CYST FLUID HEPATIC COMPLEX CYST FLUID (CYTOSPINS AND CELL BLOCK): - NEGATIVE FOR MALIGNANCY Predominantly acute inflammation and blood present Signing Pathologist Direct Phone Line: [phone] signed by Masood Hayes MD on 04/12/2022 at 7:18 [id number] hepatic complex cyst. HEPATIC COMPLEX CYST FLUIDA. Cyst.Received 1100 mls dark bloody fluid; prepared 4 cytospins and cell block(A2)(collodion bag) - for the cell block we used cytorich red fixative to lyse the red blood cells and it was fixed in formalin at 3:38 pm on 04/11/2022erformed. [facility], Department of Pathology, [address] [place] [address], [facility], Department of Pathology, [address] [place] [address], [facility], Department of Pathology, [address] [place] [address], [id number] 12:03:52 Test Item Value Reference Range Interpretation Comments PROSTATE SPECIFIC ANTIGEN (BEAKER) 0.4 ng/mL 0.0-4.0 (test code = 844) Loss Prevention Guard ID - PIAYA LBASIC METABOLIC [id number] 06:13:51 Test Item Value Reference Range Interpretation [...] eGF R is based on the CKD-EPI 2021 equation that d oes not use a race coefficientEsti mated GFR is not as accur ate as Creatinine Gemma angela in predicting glom erular filtration rate . Estimated GFR is not appl icable for dialysis patien ts Loss Prevention Guard ID - PIAYA LBASIC METABOLIC [id number] 23:52:58 Test Item Value Reference Range Interpretation [...] eGF R is based on the CKD-EPI 2021 equation that d oes not use a race coefficientEsti mated GFR is not as accur ate as Creatinine Gemma angela in predicting glom erular filtration rate . Estimated GFR is not appl icable for dialysis patien ts Loss Prevention Guard ID - BSSODIUM, RANDOM [id number] 22:50:06 Test Item Value Reference Range Interpretation Comments SODIUM URINE (BEAKER) (test code = 43 meq/L 243) Reference Range: No NormalsOperator ID - BSOSMOLALITY, [id number] 22:41:50 Test Item Value Reference Range Interpretation Comments OSMOLALITY URINE 134 mOsm/kg See_Comment [Automated message] (BEAKER) (test code = The sy stem which 614) generated this result transmitted ref erence range: 50-1,200 mOsm/kg. The reference range was not used to int erpret this result as normal/abnormal . CT, [id number] 08:28:00Unlisted Reason for Exam - Click Yes and Enter Reason Below->NoIs this for enterography?->NoWill this procedure require oral contrast?->Yes [facility]EN[facility]QUE[facility] : 1955 Sex: MFINAL REPORT [...] calculus layering in the distal right ureter which i s nonobstructive. Two punctate nonobstructive left renal calculi measuring up to 3 mm. Left renal cysts, including a 4 cm parapelvic cyst, simple appearing, no follow-up imaging recommended. Thickeningof the urothelium of the proximal right greater than left ureter, with surrounding fat stranding.Bowel: Unremarkable. Normal appendix.Bladder: Marked circumferential urinary bladder wall thickening, which is decompressed with Ordaz catheter.Reproductive organs: Mild prostatomegaly.Lymph nodes: Unremarkable.Peritoneum and retroperitoneum: A heterogeneous thick-walled fluid collection in the right mid abdomen, in Morison's pouch, measures 15 x 14 [...] perfusion and for isodense lesions. 1.Slightly decreased size of the heterogeneous thick-walled 15 cm right mid [...] UTI. 4.Markedly thick-walled urinary bladder. Signed: Coby Bull MDReport Verified Date/Time: 04/10/2022 08:28:44 BASIC METABOLIC PANEL 2022-04-10 07:02:39 Test Item Value Reference Range Interpretation [...] not appl icable for dialysis patien ts Loss Prevention Guard ID - YAMILE GCBC W/PLT COUNT & AUTO [id number] 05:56:53 Test Item Value Reference Range Interpretation [...] code = 2801) U/S, DRAINAGE, W/ CATH [id number] 11:45:00Reason for exam:->possible liver biopsy . pt with new diagnosis of metastatic disease , unknown promary [facility] : 1955 Sex: MFINAL REPORT USG guided drainage catheter placement, 04/08/2022. Clinical History: Complex hepatic fluid collection. Comparison: Outside CT 04/02/2022. Modality: USG. Semi Conductor Assembler: Gavi. Glass Driller: None. Sedation: None. Estimated Blood Loss: Less [...] was achieved with 1% lidocaine, a 5 German one-step catheter was advanced into the fluidcollection under USG guidance. After a small skin incision was made, a guidewire was advanced into the fluid collection. Subsequently, a soft tissue tract was created with 8 German dilator. After the tract was dilated, an 8 German all-purpose drainage catheter was placed into the [...] right hepatic fluid collection. Signed: Reinaldo Gatica MDReport Verified Date/Time: 04/09/2022 11:45:26 Reading Location: [facility] Radiology Reading Room Urinalysis w/[id number] 22:10:30 Test Item Value Reference Range Interpretation Comments Color, UA (test code Colorless = 5778-6) Clarity, UA (test Clear code = 5767-9) Specific [place], UA 1.004 1.001-1.035 (test code = 5811-5) pH, UA (test code = 6.5 5.0-8.0 5803-2) Protein, UA (test 50 mg/dL Negative A code = 40950-8) Glucose, UA (test 30 mg/dL Negative A code = 365) Ketones, UA (test Negative Negative code = 2514-8) Bilirubin, UA (test Negative Negative code = 21764-7) Blood, UA (test code Large Negative A = 94724-5) Nitrite, UA (test Negative Negative code = 5802-4) Leukocytes, UA (test Small Negative A code = 5799-2) Urobilinogen, UA 0.2 mg/dL 0.2-1.0 (test code = 01333-2) RBC, UA (test code = 1 See_Comment [Autom ated 32299-9) message] The system which generated this result [...] . Bacteria, UA (test Rare code = 46118-3) Crystals, Urine (test None Seen code = 99651-8) Specimen Source (test code = 2795) DILIP (test code = DILIP) Loss Prevention Guard ID - [auto]Loss Prevention Guard ID - tech Lab Interpretation Abnormal (test code = 94274-6) [facility]/[id number] 22:10:30 Test Item Value Reference Range Interpretation Comments Color, UA (test code Colorless = 5778-6) Clarity, UA (test Clear code = 5767-9) Specific [place], UA 1.004 1.001-1.035 (test code = 5811-5) pH, UA (test code = 6.5 5.0-8.0 5803-2) Protein, UA (test 50 mg/dL Negative A code = 40659-6) Glucose, UA (test 30 mg/dL Negative A code = 365) Ketones, UA (test Negative Negative code = 2514-8) Bilirubin, UA (test Negative Negative code = 10963-3) Blood, UA (test code Large Negative A = 13551-9) Nitrite, UA (test Negative Negative code = 5802-4) Leukocytes, UA (test Small Negative A code = 5799-2) Urobilinogen, UA 0.2 mg/dL 0.2-1.0 (test code = 31985-0) RBC, UA (test code = 1 See_Comment [Autom ated 08707-9) message] The system which generated this result [...] . Bacteria, UA (test Rare code = 85350-5) Crystals, Urine (test None Seen code = 12476-4) Specimen Source (test code = 2795) DILIP (test code = DILIP) Loss Prevention Guard ID - [auto]Loss Prevention Guard ID - tech Lab Interpretation Abnormal (test code = 14626-1) [facility]/ [id number] 22:10:30 Test Item Value Reference Range Interpretation [...] = 1521) SOURCE(BEAKER) (test code = 2795) Loss Prevention Guard ID - [auto]Loss Prevention Guard ID - techU/S, RENAL, [id number] 11:09:00 staffingReason for exam:->hydronephrosis [facility] : 1955 Sex: MFINAL REPORT [...] thick-walled, please correlate with urinalysis. Signed: Coby Bull MDReport Verified Date/Time: 04/08/2022 11:09:52 IRON, TIBC, % SAT. (WITHOUT FERRITIN)2022-04-08 06:46:55 Test Item Value Reference Range Interpretation Comments IRON (BEAKER) (test code = 547) 17.0 ug/dL 40.0-160.0 L TOTAL IRON BINDING CAPACITY 108 ug/dL 250-450 L (BEAKER) (test code = 769) IRON % SATURATION (2) (BEAKER) 16 % 20-55 L (test code = 2590) Loss Prevention Guard ID - TARIQ [id number] 06:35:46 Test Item Value Reference Range Interpretation Comments FERRITIN (BEAKER) (test code = 1328.71 ng/mL 5.00-275.00 H 361) Loss Prevention Guard ID Jojo POTTER WCOMPREHENSIVE METABOLIC [id number] 06:35:16 Test Item Value Reference Range Interpretation [...] not appl icable for dialysis patien ts Loss Prevention Guard ID - BSCBC W/PLT COUNT & AUTO [id number] 05:28:55 Test Item Value Reference Range Interpretation [...] (BEAKER) (test code = 2801) BASIC METABOLIC [id number] 06:48:23 Test Item Value Reference Range Interpretation [...] eGF R is based on the CKD-EPI 2021 equation that d oes not use a race coefficientEsti mated GFR is not as accur ate as Creatinine Gemma miller in predicting glom erular filtration rate . Estimated GFR is not appl icable for dialysis patien ts Loss Prevention Guard ID - JEWELL [id number] 06:46:41 Test Item Value Reference Range Interpretation Comments PHOSPHORUS (BEAKER) (test code = 3.1 mg/dL 2.3-4.7 604) Loss Prevention Guard ID - JEWELL LHEPATIC FUNCTION [id number] 06:46:41 Test Item Value Reference Range Interpretation [...] (test code = 15 U/L 6-55 347) Loss Prevention Guard ID - JEWELL [id number] 06:46:40 Test Item Value Reference Range Interpretation Comments MAGNESIUM (BEAKER) (test code = 1.6 mg/dL 1.6-2.6 627) Loss Prevention Guard ID - JEWELL LCBC W/PLT COUNT & AUTO [id number] 05:48:19 Test Item Value Reference Range Interpretation [...] PERCENT (BEAKER) (test code = 2801) PROTHROMBIN [id number] 05:13:49 Test Item Value Reference Range Interpretation Comments PROTIME (BEAKER) 17.1 seconds 11.9-14.2 H (test code = 759) INR (BEAKER) (test 1.42 See_Comment [Automat ed message] code = 370) The system [employer] generated this result transmitted ref erence range: <=5.90. The reference range was not used to int erpret this result as normal/abnormal . RECOMMENDED COUMADIN/WARFARIN INR THERAPY RANGESSTANDARD DOSE: 2.0 - 3.0 Includes: PROPHYLAXIS for venous thrombosis, systemic embolization; TREATMENT for venous thrombosis and/or pulmonary embolus.HIGH RISK: Target INR is 2.5-3.5 for patients with mechanical heart valves.
[2022-10-13 18:22] LABS: Absolute Lymphocytes (CBC) 0.2 K/uL (0.7-4.9); Lymphocytes % 2.5 % (15.3-44.8); MCV 83.6 fL (80-100); MPV 6.9 fL (7.6-11.3); RBC Red Blood Cell Count 3.11 M/uL (4.33-5.43)
[2022-10-13 18:27] LABS: Protime INR 1.16
--- NOTE | 2022-10-13 18:32 | RAD REPORT ---
EXAM DESCRIPTION: RAD - Chest Single View - 10/13/2022 6:20 pm CLINICAL HISTORY: FEVER Chest pain. COMPARISON: Chest Single View dated 04/02/2022 FINDINGS: Portable technique limits examination quality. Patchy opacity seen in the medial right lung base potentially developing pneumonia. The heart is mild ly enlarged in size. No displaced fractures.
[2022-10-13 18:56] LABS: SARS-COV-2 RT PCR NEGATIVE (NEGATIVE)
[2022-10-13] MEDS ORDERED: NA CHLORIDE 0.9% 50 ML ONE (18:59)
[2022-10-13] MEDS ORDERED: CEFTRIAXONE 1000 MG/VIAL ONE (18:59)
[2022-10-13 19:12] LABS: Bilirubin Total 0.3 mg/dL (0.2-1.0); Potassium 3.9 mmol/L (3.5-5.1); Protein, Total 7.2 g/dL (6.4-8.2)
--- NOTE | 2022-10-13 19:43 | RAD REPORT ---
EXAM DESCRIPTION: CT - Abdomen Pelvis Wo Contrast - 10/13/2022 7:33 pm CLINICAL HISTORY: Abdominal pain. nausea/ vomiting, abdominal pain, fever COMPARISON: Abdomen Pelvis Wo Contrast dated 09/08/2022; Abdomen Wo Cont dated 04/04/2022 TECHNIQUE: CT imaging of the abdomen and pelvis was performed without contrast. Solid organ, bowel a nd vascular assessment is limited due to lack of IV and oral contrast. All CT scans are performed using dose optimization technique as appropriate and may include automated exposure control or mA/KV adjustment according to patient size. FINDINGS: Mild atelectasis is seen in both lung bases.Trace right pleural fluid. The liver, spleen pancreas and adrenal glands are normal. Severe bilateral hydronephrosis again seen, unchanged. Pigtail drainage catheter is present right subhepatic space, unchanged. Moderate stool is present th roughout the colon. The osseous structures are within normal limits. IMPRESSION: Severe bilateral hydronephrosis is present, unchanged since 09/08/2022 study. Right-sided pigtail catheter is in place, grossly unchanged relative to prior study. A limited non-contrast examination was performed as detailed.
[2022-10-13] MEDS ORDERED: PIPERACIL/TAZO 4.5 GM VIAL IV ONE (21:14)
[2022-10-13] MEDS ORDERED: NA CHLORIDE 0.9% 100 ML ONE (21:14)
[2022-10-13 22:00] LABS: Urine Blood Trace-intact (Negative); Urine Glucose Negative (Negative); Urine Protein 1+ (Negative)
[2022-10-13 22:17] LABS: Urine Bacteria <20 /HPF (<20)
--- NOTE | 2022-10-14 03:20 | EDPHYS ---
Physician Documentation [facility] Name: Max Sandoval Age: 67 yrs Sex: Male : 1955 Arrival Date: 10/13/2022 Time: 17:36 Bed 2 Private MD: ED Physician Kwasi Lockwood HPI: 10/13 17:45 This 67 yrs old Male presents to ER via EMS with complaints of fever, vomiting. ms3 17:45 67-year-old male with unknown kidney problems, orthostatic hypotension, liver cyst ms3 presents via [facility] EMS for fevers, nausea, vomiting. Patient states he began feeling bad around 1 PM. Patient developed chills. On EMS arrival patient's temperature was 103.3. EMS administered Tylenol, IV Zofran, 400 mL of normal saline. On their arrival patient's heart rate was in the 140s, and systolic blood pressure 170s. After administration of Tylenol patient began vomiting. Patient denies alleviating or inciting factors.. Historical: - Allergies: 17:44 No Known Allergies; ap3 - Home Meds: 17:44 None [Active]; ap3 - PMHx: 17:44 unknown kidney issue; Orthostatic hypotension; ap3 - Immunization history:: Adult Immunizations unknown. - Social history:: Smoking status: Patient denies any tobacco usage or history of. ROS: 17:45 Neck: Negative for injury, pain, and swelling, Cardiovascular: Negative for chest pain, ms3 and palpitations. Respiratory: Negative for shortness of breath, cough, wheezing, and pleuritic chest pain. 17:45 MS/Extremity: Negative for injury and deformity, Skin: Negative for injury, rash, and discoloration. 17:45 Constitutional: Positive for chills, fever. 17:45 Abdomen/GI: Positive for abdominal pain, nausea and vomiting. 17:45 All other systems are negative. Exam: 17:45 Constitutional: This is a well developed, well nourished patient who is awake, alert, ms3 and in no acute distress. Head/Face: Normocephalic, atraumatic. Chest/axilla: Normal chest wall appearance and motion. Nontender with no deformity. 17:45 Cardiovascular: Rate: tachycardic, Rhythm: regular, Pulses: no pulse deficits are appreciated. 17:45 Abdomen/GI: Inspection: abdomen appears normal, Bowel sounds: normal, Palpation: abdomen is soft and non-tender, RLQ STEPHEN drain site. 18:20 ECG was reviewed by the Attending Physician. ms3 Vital Signs: 17:36 BP 169 / 102; Pulse 116; Resp 23; Temp 101.4; Pulse Ox 100% on R/A; Weight 70.31 kg; ap3 Height 5 ft. 10 in. (177.80 cm); 18:08 BP 152 / 88; Pulse 104; Pulse Ox 99% on R/A; ap3 19:00 BP 130 / 77; Pulse 99; Resp 18; Pulse Ox 97% ; pf1 19:55 BP 125 / 75; Pulse 92; Resp 16; Pulse Ox 98% on R/A; ll3 20:30 BP 123 / 73; Pulse 84; Resp 18; Temp 99.6(O); Pulse Ox 99% on R/A; pf1 21:30 BP 129 / 81; Pulse 86; Resp 16; Pulse Ox 99% on R/A; pf1 22:30 BP 130 / 73; Pulse 78; Resp 14; Pulse Ox 97% on R/A; pf1 23:15 BP 115 / 72; Pulse 78; Resp 15; Pulse Ox 95% on R/A; ll3 02/03 00:15 BP 112 / 76; Pulse 73; Resp 14; Pulse Ox 96% ; pf1 01:00 BP 108 / 68; Pulse 67; Resp 14; Pulse Ox 96% ; pf1 01:45 BP 121 / 73; Pulse 72; Resp 14; Pulse Ox 98% ; pf1 02:30 BP 128 / 80; Pulse 67; Resp 14; Pulse Ox 99% on R/A; Pain 0/10; pf1 03:29 BP 131 / 80; Pulse 69; Resp 17; Temp 98(O); Pulse Ox 100% on R/A; Pain 0/10; pf1 10/13 17:36 Body Mass Index 22.24 (70.31 kg, 177.80 cm) ap3 MDM: 02 17:41 Patient medically screened. ms3 17:45 Differential diagnosis: non-specific abd pain, Liver abscess vs COVID vs Flu. ms3 19:10 Transition of care: After a detail discussion of the patient's case, care is ms3 transferred to Kwasi Lockwood MD. 10/14 03:19 Data reviewed: vital signs, nurses notes, lab test result(s), EKG, radiologic studies. rt Consideration of Admission/Observation Escalation of care including admission/observation considered. Management of patient was discussed with the following: Hospitalist: Discussed with hospitalist agrees to admit the patient in transfer. Application Integration Engineer: Discussed with urology, general surgery at [facility]. I considered the following discharge prescriptions or medication management in the emergency department Medications were administered in the Emergency Department. See MAR. Independent interpretation of the following test(s) in the Emergency Department X-Ray: My interpretation is Reviewed consolidation on x-ray. CT Scan: My interpretation is Reviewed imaging including hydronephrosis. Care significantly affected by the following chronic conditions: Chronic Kidney Disease. Response to treatment: the patient's symptoms have markedly improved after treatment. 10/13 17:42 Order name: Blood Culture Adult (2) ms3 10/13 17:42 Order name: CBC with Diff; Complete Time: 18:52 ms3 10/13 17:42 Order name: CMP; Complete Time: 19:23 ms3 10/13 17:42 Order name: Lactate w/ 2H reflex if indic.; Complete Time: 19:23 ms3 10/13 17:42 Order name: Protime (+inr); Complete Time: 18:52 ms3 10/13 17:42 Order name: Ptt, Activated; Complete Time: 18:52 ms3 10/13 17:42 Order name: Urine Microscopic Only; Complete Time: 22:32 ms3 10/13 17:48 Order name: COVID-19/FLU A+B; Complete Time: 19:23 ms3 10/13 17:48 Order name: CXR XRAY; Complete Time: 18:52 ms3 10/13 22:00 Order name: Urine Dipstick-Ancillary; Complete Time: 22:13 EDMS 10/13 22:08 Order name: Wound Culture EDMS 10/13 22:20 Order name: Urine Culture EDMS 10/13 17:42 Order name: EKG; Complete Time: 17:43 ms3 10/13 17:42 Order name: Accucheck; Complete Time: 18:58 ms3 10/13 17:42 Order name: Cardiac monitoring; Complete Time: 17:47 ms3 10/13 17:42 Order name: EKG - Nurse/Tech; Complete Time: 18:23 ms3 10/13 17:42 Order name: IV Saline Lock - Large Bore; Complete Time: 17:47 ms3 10/13 17:42 Order name: Labs collected and sent; Complete Time: 18:07 ms3 10/13 17:42 Order name: O2 Per Protocol; Complete Time: 17:47 ms3 10/13 17:42 Order name: O2 Sat Monitoring; Complete Time: 17:47 ms3 10/13 17:42 Order name: Urine Dipstick-Ancillary (obtain specimen); Complete Time: 22:00 ms3 10/13 17:42 Order name: Vital Signs; Complete Time: 17:47 ms3 10/13 19:26 Order name: Abdomen ; Complete Time: 19:57 EDMS 10/14 02:52 Order name: Ordaz; Complete Time: 03:12 rt EC/02 18:20 Rate is 99 beats/min. Rhythm is regular. QRS [place] is Normal. [place] interval is normal. QT ms3 interval is normal. Clinical impression: NSR w/ Non-specific ST/T Changes. Interpreted by me. Reviewed by me. Administered Medications: 18:58 Drug: Rocephin (cefTRIAXone) 1 grams Route: IV; Rate: calculated rate; Site: right ap3 wrist; 19:10 Follow up: IV Status: Completed infusion; IV Intake: 10ml pf1 21:41 Drug: Zosyn (piperacillin-tazobactam) 4.5 grams Route: IVPB; Infused Over: 60 mins; ll3 Site: right forearm; 23:15 Follow up: Response: No adverse reaction; IV Status: Completed infusion; IV Intake: ll3 100ml Disposition Summary: 10/14/22 03:19 Transfer Ordered Transfer Location: [facility] rt Reason: Higher level of care rt Condition: Fair rt Problem: an acute exacerbation rt Symptoms: have improved rt Accepting Physician: Dr. Cervantes(10/14/22 04:12) pf1 Diagnosis - Sepsis rt - Bilateral hydronephrosis rt - Chronic renal failure rt - Infected intra-abdominal STEPHEN drain rt Forms: - Medication Reconciliation Form rt - SBAR form rt Critical care time excluding procedures: 10/14 03:19 Critical care time: Bedside Care: 30 minutes, Consultation: 20 minutes. Total time: 50 rt minutes 03:19 Critical care time: Bedside Care: 30 minutes, Consultation: 10 minutes. Total time: 40 rt minutes Signatures: Dispatcher [employer] EDMS Nolberto Raza, INFORMATION CLERK [employer] INFORMATION CLERK [employer] Rachell Ramírez, RN RN ap3 Fish Fierro, DO DUNCAN ms3 Kaylyn Wetzel RN RN ll3 Kwasi Lockwood MD MD rt Sammi capone RN RN pf1 Corrections: (The following items were deleted from the chart) 10/13 19:26 17:47 Abdomen Pelvis W Con+CT.RAD.BRZ ordered. EDMS EDMS 22:08 21:29 Miscellaneous Lab Test+R.LAB.BRZ ordered. EDMS EDMS 10/14 04:12 03:19 Dr. Cervantes rt pf1
--- NOTE | 2022-10-14 03:20 | ER ---
Nurse's Notes [facility] Name: Max Sandoval Age: 67 yrs Sex: Male : 1955 Arrival Date: 10/13/2022 Time: 17:36 Bed 2 Private MD: Diagnosis: Sepsis;Bilateral hydronephrosis;Chronic renal failure;Infected intra-abdominal STEPHEN drain Presentation: 10/13 17:36 Chief complaint: EMS states: they were called by the patients neighbor due to the ap3 patient not "feeling well" patient reports he started feeling ill and nauseated this afternoon after lunch at approx 1300. EMS established a 20g IV to the patients right AC, and started NS fluids. Patients temperature on EMS's arrival was 103.3, they administered 1000mg of Tylenol which the patient soon vomited. EMS also administered 4mg IV Zofran. Patient presents to the ED with a drain to the right lower quadrant of his abdomen that he reports has been there for approx one year and will "have it removed soon". Coronavirus screen: At this time, the client does not indicate any symptoms associated with coronavirus-19. Ebola Screen: No symptoms or risks identified at this time. Initial Sepsis Screen: Does the patient meet any 2 criteria? RR > 20 per min. Temp <36.0*C (96.8*F)) or > 38.3*C (100.9*F). HR > 90 bpm. Yes Does the patient have a suspected source of infection? Yes: Other: recent abdominal sx, with drain in place for extended period of time. Risk Assessment: Do you want to hurt yourself or someone else? Patient reports no desire to harm self or others. Onset of symptoms was October 13, 2022 at 13:00. Care prior to arrival: Medication(s) given: Normal saline infusion, 500 mL, Tylenol, 1000 mg, zofran 4 mg, IV initiated. 20 GA, in the right antecubital area. 17:36 Method Of Arrival: EMS: [facility] ap3 17:36 Acuity: CECILIA 2 ap3 Triage Assessment: 17:45 General: Appears uncomfortable, slender, Behavior is calm, flat. General: Reports fever ap3 for 0-12 hours, feeling ill for 0-12 hours, fatigue for 0-12 hours. Pain: Denies pain. Neuro: Level of Consciousness is awake, alert, obeys commands, Oriented to person, place, time, situation. Cardiovascular: Patient's skin is warm and dry. Respiratory: Airway is patent Respiratory effort is even, unlabored. GI: right lower quadrant drain in place from previous abdominal surgery Reports nausea, vomiting. Historical: - Allergies: 17:44 No Known Allergies; ap3 - Home Meds: 17:44 None [Active]; ap3 - PMHx: 17:44 unknown kidney issue; Orthostatic hypotension; ap3 - Immunization history:: Adult Immunizations unknown. - Social history:: Smoking status: Patient denies any tobacco usage or history of. Screenin:46 Abuse screen: Denies threats or abuse. Nutritional screening: No deficits noted. ap3 Tuberculosis screening: No symptoms or risk factors identified. 20:52 [facility] ED Fall Risk Assessment (Adult) History of falling in the last 3 months, ll3 including since admission No falls in past 3 months (0 pts) Confusion or Disorientation No (0 pts) Intoxicated or Sedated No (0 pts) Impaired Gait No (0 pts) Mobility Assist Device Used No (0 pt) Altered Elimination No (0 pt) Score/Fall Risk Level 0 - 2 = Low Risk Oriented to surroundings, Maintained a safe environment, Educated pt \\T\\ family on fall prevention, incl call for assistance when getting out of bed. Assessment: 20:50 General: Appears in no apparent distress. comfortable, Behavior is calm, cooperative. ll3 General: Reports fever for feeling ill for. Pain: Denies pain. Neuro: Level of Consciousness is awake, alert, obeys commands, Oriented to person, place, time, situation. Respiratory: Respiratory effort is even, unlabored, Respiratory pattern is regular, symmetrical. Derm: Skin is pink, warm \\T\\ dry. 20:51 Reassessment: States nausea has improved, denies any depsides of vomiting throughout ll3 time in ER. 23:28 Reassessment: No changes from previously documented assessment. Patient and/or family ll3 updated on plan of care and expected duration. Pain level reassessed. Patient is alert, oriented x 3, equal unlabored respirations, skin warm/dry/pink. 03 01:00 Reassessment: Patient appears in no apparent distress at this time. No changes from pf1 previously documented assessment. Patient and/or family updated on plan of care and expected duration. Pain level reassessed. Patient is alert, oriented x 3, equal unlabored respirations, skin warm/dry/pink. 01:09 General: Calling [facility] for Transfer. . tw5 04:05 General: Patient report given to Zeke with [facility]. Patient being transferred pf1 to [facility] to [place] [address]. Vital Signs: 10/13 17:36 BP 169 / 102; Pulse 116; Resp 23; Temp 101.4; Pulse Ox 100% on R/A; Weight 70.31 kg; ap3 Height 5 ft. 10 in. (177.80 cm); 18:08 BP 152 / 88; Pulse 104; Pulse Ox 99% on R/A; ap3 19:00 BP 130 / 77; Pulse 99; Resp 18; Pulse Ox 97% ; pf1 19:55 BP 125 / 75; Pulse 92; Resp 16; Pulse Ox 98% on R/A; ll3 20:30 BP 123 / 73; Pulse 84; Resp 18; Temp 99.6(O); Pulse Ox 99% on R/A; pf1 21:30 BP 129 / 81; Pulse 86; Resp 16; Pulse Ox 99% on R/A; pf1 22:30 BP 130 / 73; Pulse 78; Resp 14; Pulse Ox 97% on R/A; pf1 23:15 BP 115 / 72; Pulse 78; Resp 15; Pulse Ox 95% on R/A; ll3 02/03 00:15 BP 112 / 76; Pulse 73; Resp 14; Pulse Ox 96% ; pf1 01:00 BP 108 / 68; Pulse 67; Resp 14; Pulse Ox 96% ; pf1 01:45 BP 121 / 73; Pulse 72; Resp 14; Pulse Ox 98% ; pf1 02:30 BP 128 / 80; Pulse 67; Resp 14; Pulse Ox 99% on R/A; Pain 0/10; pf1 03:29 BP 131 / 80; Pulse 69; Resp 17; Temp 98(O); Pulse Ox 100% on R/A; Pain 0/10; pf1 10/13 17:36 Body Mass Index 22.24 (70.31 kg, 177.80 cm) ap3 ED Course: 10/13 17:36 Patient arrived in ED. ap3 17:37 Fish Fierro DO is Attending Physician. ms3 17:44 Triage completed. ap3 17:46 Arm band placed on right wrist. ap3 17:47 Rachell Ramírez, RN is Primary Nurse. ap3 17:47 Patient has correct armband on for positive identification. Placed in gown. Bed in low ap3 position. Call light in reach. Side rails up X2. traffic monitor specialist on. Pulse ox on. NIBP on. Door closed. Noise minimized. 18:00 Initial lab(s) drawn, by me, sent to lab. First set of blood cultures drawn. ph 18:07 Ptt, Activated Sent. ap3 18:07 Protime (+inr) Sent. ap3 18:07 Lactate w/ 2H reflex if indic. Sent. ap3 18:07 CMP Sent. ap3 18:07 CBC with Diff Sent. ap3 18:07 Blood Culture Adult (2) Sent. ap3 18:07 COVID-19/FLU A+B Sent. ap3 18:08 Inserted saline lock: 22 gauge in right forearm, using aseptic technique. Blood ph collected. 18:22 CXR XRAY In Process Unspecified. EDMS 19:04 Attending Physician role handed off by Fish Fierro DO rt 19:04 Kwasi Lockwood MD is Attending Physician. rt 19:34 Abdomen In Process Unspecified. EDMS 20:52 No provider procedures requiring assistance completed. ll3 21:45 Primary Nurse role handed off by Rachell Ramírez, RN 23:04 Initiated transfer to [facility], spoke with Ari. 10/14 02:40 spoke with Ari from [facility] transfer center regarding update of PT SS number. Ari roth3 now speaking with Dr. Lockwood. 03:05 Ordaz cath inserted, using sterile technique, 16 Fr., by me, balloon inflated, to pf1 gravity drainage, clamped. returned clear yellow urine. Patient tolerated well. 03:17 PT accepted to [facility]. Accepting physician Sal Cervantes. Accepting rep Ari Brady. 03:42 [facility] ambulance contacted regarding transfer. [facility] ambulance will arrive in about 30 to kd3 35 minutes. 03:43 Patient transferred, IV remains in place. pf1 Administered Medications: 10/13 18:58 Drug: Rocephin (cefTRIAXone) 1 grams Route: IV; Rate: calculated rate; Site: right ap3 wrist; 19:10 Follow up: IV Status: Completed infusion; IV Intake: 10ml pf1 21:41 Drug: Zosyn (piperacillin-tazobactam) 4.5 grams Route: IVPB; Infused Over: 60 mins; ll3 Site: right forearm; 23:15 Follow up: Response: No adverse reaction; IV Status: Completed infusion; IV Intake: ll3 100ml Medication: 20:52 VIS not applicable for this client. ll3 Intake: 19:10 IV: 10ml; Total: 10ml. pf1 23:15 IV: 100ml; Total: 110ml. ll3 Outcome: 10/14 03:19 ER care complete, transfer ordered by . rt 03:41 Transferred by ground EMS to [facility], Transfer form completed. pf1 X-rays sent w/ patient. 03:41 Transferred Note: Patient report given to SAVANNA Mariscal 03:41 Condition: stable 03:41 Instructed on the need for admit, Demonstrated understanding of instructions. 04:12 Patient left the ED. pf1 Signatures: Dispatcher [employer] EDMS Jesi Cordova RN RN Rachell Ramírez RN RN ap3 Fish Fierro DO DO ms3 Vy Canales Tiffany tw5 Kaylyn Wetzel RN RN ll3 Elina Rivero RN RN kd3 Kwasi Lockwood MD MD rt Sammi capone RN RN pf1
[2022-10-14 04:52] VITALS: BP 131/80; TEMP 98; O2SAT 100
== END 2022-10-14 04:12 | disposition short-term general hospital (02) ==
LOC: ER 17:34
DX: A41.9 Sepsis, unspecified organism (principal); N13.30 Unspecified hydronephrosis; R65.20 Severe sepsis without septic shock; N18.9 Chronic kidney disease, unspecified; K68.11 Postprocedural retroperitoneal abscess; Z20.822 Contact with and (suspected) exposure to COVID-19
CPT/HCPCS: 96365; 93005; 87040 ×2; 87088; 87070; 85025; 87086; 36415; 87205; 85610; 83605; 85730; 87077; 87186; 80053; 0240U; 74176; 71045; 51702; 96375; 99285; 96366; 81003; 81015